=== PATIENT | male | born 1980 | race Asian ===

== ENCOUNTER 2016-08-17 19:04 | Emergency (ER) | payer MEDICARE, MEDICAID ==
--- NOTE | 2016-08-17 19:15 | ER Document Report ---
ED General - General Mode of Arrival: Ambulatory Information source: Patient TRAVEL OUTSIDE OF THE [place] IN LAST 30 DAYS: No - HPI Onset: Other - see narrative Onset/Duration: Persistent Quality of pain: No pain Associated symptoms: None <MARKELL MEHTA - Last Filed: 08/17/16 22:01> <LEAH OBRIEN - Last Filed: 08/17/16 23:59> - General Stated Complaint: POSSIBLE OVERDOSE Notes: Patient is a 35-year-old male that presents to the emergency department today with complaints of becoming unresponsive prior to arrival. Patient states he was coming down off of crystal methamphetamine so he took a few of his friends "[employer]" and his father found him "passed out" on the floor. Patient states he did not want to come to the ER but his father called EMS. Patient has an extensive documented history of drug abuse. (MARKELL MEHTA) - Related Data Allergies/Adverse Reactions: No Known Allergies Allergy (Verified 07/18/16 08:37) Past Medical History - General Information source: Patient - Social History Smoking Status: Current Every Day Smoker Cigarette use (# per day): Yes Drug Abuse: Heroin, Methamphetamine, Prescription drugs Family History: Reviewed & Not Pertinent GI Medical History: Reports: Hx Hepatitis - C Traumatic Medical History: Reports: Hx Spine Fracture - L-1996, RESULTANT SPASTIC PARAPLEGIA & URINARY RETENTION. Infectious Medical History: Reports: Hx Hepatitis - C Past Surgical History: Reports: Hx Orthopedic Surgery - femur fx, L1 back fx - Immunizations Hx Diphtheria, Pertussis, Tetanus Vaccination: No Hx Pneumococcal Vaccination: 09/01/13 <MARKELL MEHTA - Last Filed: 08/17/16 22:01> Review of Systems - Review of Systems Constitutional: See HPI, Other - took "xanny bars" and was becoming unresponsive EENT: No symptoms reported Cardiovascular: No symptoms reported Respiratory: No symptoms reported Gastrointestinal: No symptoms reported Genitourinary: No symptoms reported Male Genitourinary: No symptoms reported Musculoskeletal: No symptoms reported Skin: No symptoms reported Hematologic/Lymphatic: No symptoms reported Neurological/Psychological: No symptoms reported -: Yes All other systems reviewed and negative <MARKELL MEHTA - Last Filed: 08/17/16 22:01> Physical Exam - General General appearance: Other - drowsy In distress: None - HEENT Head: Normocephalic, Atraumatic Eyes: Normal Extraocular movements intact: Yes - Respiratory Respiratory status: No respiratory distress - Cardiovascular Rhythm: Regular Heart sounds: Normal auscultation Murmur: No - Abdominal Inspection: Normal Distension: No distension - Extremities General upper extremity: Normal inspection, Nontender, Normal ROM. No: Edema General lower extremity: Other - chronic lower extremity weakness - Neurological Cognition: Normal Speech: Other - slurred speech - Skin Skin Temperature: Warm Skin Moisture: Dry Skin Color: Normal <GREG MEHTAON - Last Filed: 08/17/16 22:01> Course - Laboratory Result Diagrams: 08/17/16 20:15 08/17/16 20:15 <TYSONMARKELL - Last Filed: 08/17/16 22:01> - Laboratory Result Diagrams: 08/17/16 20:15 08/17/16 20:15 - EKG Interpretation by Oh EKG shows normal: Sinus rhythm, Intervals, QRS Complexes, ST-T Waves. abnormal : [place] Rate: Tachycardia - 102 [place]/QRS: Left axis deviation When compared to previous EKG there are: No significant change <LEAH OBRIEN - Last Filed: 08/17/16 23:59> - Vital Signs Vital signs: Temp Pulse Resp BP Pulse Ox 97.9 F 99 18 108/62 100 08/17/16 19:10 08/17/16 19:10 08/17/16 19:10 08/17/16 19:10 08/17/16 19:10 (LEAH OBRIEN) - Laboratory Laboratory results interpreted by nc: 08/17/16 08/17/16 08/17/16 20:15 20:15 20:15 WBC 11.8 H RDW 17.3 H Creatine Kinase 186 H Total Protein 9.7 H Urine Protein 30 H Urine Ketones 80 H Urine Blood Urine Urobilinogen 2.0 H Ur Leukocyte Esterase MODERATE H 08/17/16 23:22 WBC RDW Creatine Kinase Total Protein Urine Protein Urine Ketones 80 H Urine Blood MODERATE H Urine Urobilinogen Ur Leukocyte Esterase SMALL H (LEAH OBRIEN) Discharge <MARKELL MEHTA - Last Filed: 08/17/16 22:01> <LEAH OBRIEN - Last Filed: 08/17/16 23:59> - Discharge Clinical Impression: Chronic drug abuse, Dehydration Benzodiazepine overdose Qualifiers: Encounter type: initial encounter Injury intent: undetermined intent Qualified Code(s): T42.4X4A - Poisoning by benzodiazepines, undetermined, initial encounter Condition: Stable Disposition: HOME, SELF-CARE Additional Instructions: Your urine has remained very concentrated suggesting the need to drink considerably more fluids than he had been. The urine analysis suggests he may have a urinary tract infection, so the urine will be cultured to determine if that is so. Drink plenty of fluids tonight and tomorrow. Stop using drugs. Follow-up with your doctor tomorrow if any problems. RETURN TO THE EMERGENCY ROOM IF ANY NEW OR WORSENING SYMPTOMS. Scribe Attestation: 08/17/16 23:55 I personally performed the services described in the documentation, reviewed and edited the documentation which was dictated to the scribe in my presence, and it accurately records my words and actions. (LEAH OBRIEN) Scribe Documentation - Scribe Written by Jenn:: Jenn Schultz, 2100 08/17/16 acting as scribe for :: Marta <MARKELL MEHTA - Last Filed: 08/17/16 22:01>
[2016-08-17 20:32] LABS: ABSOLUTE BASOPHILS # (AUTO) 0.1 10^3/uL (0.0-0.2); ABSOLUTE EOSINOPHILS # (AUTO) 0.1 10^3/uL (0.0-0.6); ABSOLUTE LYMPHOCYTES (AUTO) 2.4 10^3/uL (0.5-4.7); ABSOLUTE MONOCYTES (AUTO) 1.2 10^3/uL (0.1-1.4); BASOPHILS % (AUTO) 0.4 % (0-2); EOSINOPHILS % (AUTO) 0.5 % (0-6); HEMOGLOBIN 16.1 g/dL (13.5-17.0); HGB HCT DIFFERENCE -1.7; LYMPHOCYTES % (AUTO) 20.4 % (13-45); MEAN CORPUSCULAR HEMOGLOBIN 29.5 pg (27.0-33.4); MEAN CORPUSCULAR HGB CONC 32.2 g/dL (32.0-36.0); MEAN CORPUSCULAR VOLUME 92 fl (80-97); MONOCYTES % (AUTO) 10.6 % (3-13); RED BLOOD COUNT 5.46 10^6/uL (4.35-5.55); RED CELL DISTRIBUTION WIDTH 17.3 % (11.5-14.0); SEGMENTED NEUTROPHILS % (AUTO) 68.1 % (42-78); WHITE BLOOD COUNT 11.8 10^3/uL (4.0-10.5)
[2016-08-17 20:33] LABS: APPEARANCE,URINE SLIGHTLY-CLOUDY; BILIRUBIN,URINE NEGATIVE (NEGATIVE); GLUCOSE, URINE NEGATIVE (NEGATIVE); KETONES,URINE 80 mg/dL (NEGATIVE); LEUKOCYTE ESTERASE,URINE MODERATE (NEGATIVE); NITRITE,URINE NEGATIVE (NEGATIVE); PROTEIN,URINE 30 mg/dL (NEGATIVE); URINE SPECIFIC GRAVITY 1.031
[2016-08-17] MEDS ORDERED: NORMAL SALINE 1000 ML 1,000 ML IV ONE (20:42)
[2016-08-17 20:47] LABS: URINE BARBITURATES SCREEN NEGATIVE; URINE METHADONE SCREEN NEGATIVE; URINE PHENCYCLIDINE SCREEN NEGATIVE
[2016-08-17 20:51] LABS: ALANINE AMINOTRANSFERASE 21 U/L (21-72); ALKALINE PHOSPHATASE 99 U/L (38-126); ANION GAP 17 (5-19); ASPARTATE AMINO TRANSFERASE 40 U/L (17-59); BILIRUBIN,TOTAL 1.3 mg/dL (0.2-1.3); BLOOD UREA NITROGEN 15 mg/dL (7-20); CALCIUM 10.1 mg/dL (8.4-10.2); CARBON DIOXIDE 24 mmol/L (22-30); CHLORIDE 102 mmol/L (98-107); CREATINE KINASE 186 U/L (55-170); CREATININE RESULT 0.62 mg/dL (0.52-1.25); GLUCOSE 89 mg/dL (75-110); POTASSIUM 4.1 mmol/L (3.6-5.0); TOTAL PROTEIN 9.7 g/dL (6.3-8.2)
[2016-08-17 23:37] LABS: APPEARANCE,URINE SLIGHTLY-CLOUDY; BILIRUBIN,URINE NEGATIVE (NEGATIVE); GLUCOSE, URINE NEGATIVE (NEGATIVE); KETONES,URINE 80 mg/dL (NEGATIVE); LEUKOCYTE ESTERASE,URINE SMALL (NEGATIVE); NITRITE,URINE NEGATIVE (NEGATIVE); PROTEIN,URINE NEGATIVE (NEGATIVE); URINE SPECIFIC GRAVITY 1.029; UROBILINOGEN,URINE NEGATIVE mg/dL (<2.0)
--- NOTE | 2016-08-17 23:57 | EKG REPORT ---
SEVERITY:- OTHERWISE NORMAL ECG - SINUS TACHYCARDIA BORDERLINE LEFT AXIS DEVIATION : Confirmed by: Medardo Jewell 17-Aug-2016 23:56:32
[2016-08-18 00:17] VITALS: BP 107/80
== END 2016-08-18 00:17 | disposition home or self-care (01) ==
LOC: ER 19:04
DX: T42.4X4A Poisoning by benzodiazepines, undetermined, initial encounter (principal); F19.10 Other psychoactive substance abuse, uncomplicated; R53.1 Weakness; E86.0 Dehydration; F17.210 Nicotine dependence, cigarettes, uncomplicated; Z86.19 Personal history of other infectious and parasitic diseases
CPT/HCPCS: 93005; 99284; 96360; 36415; 87040; 87086; 82550; 85025; 87088; 80053; 81001; 84484; 87186; 80307; 71020; 93010; J7030

== ENCOUNTER 2017-06-08 11:23 | Inpatient (IN) | payer MEDICARE, MEDICAID ==
[2017-06-08] MEDS ORDERED: NORMAL SALINE 1000 ML 1,000 ML IV ONE ×4 (11:52→18:01)
--- NOTE | 2017-06-08 11:54 | ER Document Report ---
ED Medical Screen (RME) - General Chief Complaint: Skin Sore(s) Stated Complaint: SKIN SORE Time Seen by Provider: 06/08/17 11:51 Notes: Patient has a history of lumbar injury with some neurological impairment. Patient is able to ambulate with braces. However he states that due to multiple surgeries in the lumbar sacral area and prolonged sitting he is prone to decubitus ulcers. He states he has had several before. He states about a month ago he developed one on his right buttock and has been seeing wound clinic for it. They have been debriding it and treating it with cream but no antibiotics. He states several days ago he noticed that the area was red and tender and had a foul smell from it. He states he also began to feel weak lightheaded and nauseated consistent with when previous decubiti have been infected. He states he called wound clinic and they referred him here to the emergency department. TRAVEL OUTSIDE OF THE [place] IN LAST 30 DAYS: No - Related Data Allergies/Adverse Reactions: No Known Allergies Allergy (Verified 06/08/17 11:27) Past Medical History - Social History Frequency of alcohol use: None Drug Abuse: None Neurological Medical History: Denies: Hx Seizures GI Medical History: Reports: Hx Hepatitis - C Psychiatric Medical History: Denies: Hx Depression Traumatic Medical History: Reports: Hx Spine Fracture - L1996, RESULTANT SPASTIC PARAPLEGIA & URINARY RETENTION. Infectious Medical History: Reports: Hx Hepatitis - C Past Surgical History: Reports: Hx Orthopedic Surgery - femur fx, L1 back fx - Immunizations Hx Diphtheria, Pertussis, Tetanus Vaccination: No Physical Exam - Vital signs Vitals: Temp Pulse Resp BP Pulse Ox 98.5 F 128 H 20 147/93 H 99 06/08/17 11:27 06/08/17 11:27 06/08/17 11:27 06/08/17 11:27 06/08/17 11:27 Course - Vital Signs Vital signs: Temp Pulse Resp BP Pulse Ox 98.5 F 128 H 20 147/93 H 99 06/08/17 11:27 06/08/17 11:27 06/08/17 11:27 06/08/17 11:27 06/08/17 11:27
--- NOTE | 2017-06-08 13:31 | ER Document Report ---
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 He has been feeling ill for several days with myalgias, arthralgias, fever, and worsening drainage to a right buttocks pressure sore. He is not on any antibiotics. He was seen by the wound care clinic a week and a half ago. TRAVEL OUTSIDE OF THE [place] IN LAST 30 DAYS: No - Related Data Allergies/Adverse Reactions: No Known Allergies Allergy (Verified 06/08/17 11:27) Past Medical History - General Information source: Patient - Social History Smoking Status: Current Some Day Smoker Frequency of alcohol use: None Drug Abuse: None Occupation: Unemployed Lives with: Family Family History: Reviewed & Not Pertinent - Medical History Medical History: Negative Neurological Medical History: Denies: Hx Seizures GI Medical History: Reports: Hx Hepatitis - C Psychiatric Medical History: Denies: Hx Depression Traumatic Medical History: Reports: Hx Spine Fracture - L-1996, RESULTANT SPASTIC PARAPLEGIA & URINARY RETENTION. Infectious Medical History: Reports: Hx Hepatitis - C Past Surgical History: Reports: Hx Orthopedic Surgery - femur fx, L1 back fx - Immunizations Hx Diphtheria, Pertussis, Tetanus Vaccination: No Hx Pneumococcal Vaccination: 09/01/13 Review of Systems - Review of Systems Constitutional: See HPI EENT: No symptoms reported Cardiovascular: No symptoms reported Respiratory: No symptoms reported Gastrointestinal: No symptoms reported Genitourinary: No symptoms reported Male Genitourinary: No symptoms reported Musculoskeletal: See HPI Skin: See HPI Hematologic/Lymphatic: No symptoms reported Neurological/Psychological: No symptoms reported Physical Exam - Vital signs Vitals: Temp Pulse Resp BP Pulse Ox 98.5 F 128 H 20 147/93 H 99 06/08/17 11:27 06/08/17 11:27 06/08/17 11:27 06/08/17 11:27 06/08/17 11:27 Interpretation: Tachycardic - in pivot, apical pulse 88 at this time - General General appearance: Appears well, Alert In distress: None - HEENT Head: Normocephalic, Atraumatic Eyes: Normal Conjunctiva: Normal Pupils: PERRL Mucous membranes: Dry Pharynx: Normal Neck: Supple. No: Lymphadenopathy - Respiratory Respiratory status: No respiratory distress Chest status: Nontender Breath sounds: Normal Chest palpation: Normal - Cardiovascular Rhythm: Regular Heart sounds: Normal auscultation Murmur: No - Abdominal Inspection: Normal Distension: No distension Bowel sounds: Normal Tenderness: Nontender Organomegaly: No organomegaly - Back Back: Normal, Nontender - Extremities General upper extremity: Normal inspection, Nontender, Normal color, Normal ROM , Normal temperature General lower extremity: Normal inspection, Nontender, Normal color, Normal ROM , Normal temperature, Normal weight bearing. No: Josefina's sign - Neurological Neuro grossly intact: Yes Cognition: Normal Orientation: AAOx4 [place] Coma Scale Eye Opening: Spontaneous [place] Coma Scale Verbal: Oriented [place] Coma Scale Motor: Obeys Commands [place] Coma Scale Total: 15 Speech: Normal Motor strength normal: LUE, RUE, LLE, RLE Sensory: Normal - Psychological Associated symptoms: Normal affect, Normal mood - Skin Skin Temperature: Warm Skin Moisture: Dry Skin Color: [place], Other - pressure sore right mid buttocks, wtih necrotic tissue that needs to be debrided, about 1-2 cm (mushy) Course - Re-evaluation Re-evalutation: 06/08/17 15:00 dr hammer wll see the pt. 06/08/17 16:00 dr hammer debrided pressure sore at the bedside, packed with iodoform gauze. asked to give 1 gram rocephin IV now too. consult dr. rodriguez about whether he can go home, he is OK after seeing the pt and put on levaquin. Urine negative. 06/08/17 17:12 To check on the patient he was on his right side with his left arm above the heart in which the blood pressures being taken systolic was 87 I had him lay on his back with the left arm even with the heart and the blood pressure was 95 systolic similar to the right arm 95 systolic. I am ordering another liter of fluid and he still has 1 g Rocephin to go he feels fine. 06/08/17 18:03 cath urine done by pt and it is still dark, ordered 4th liter NS 06/08/17 18:15 Patient's pulse is 94 his urine is dark he just felt To himself I have ordered another liter of fluid and called for him to be admitted, dr. urbina hospitalist 06/08/17 18:26 - Vital Signs Vital signs: Temp Pulse Resp BP Pulse Ox 98.5 F 128 H 17 96/61 L 100 06/08/17 17:15 06/08/17 11:27 06/08/17 17:11 06/08/17 17:11 06/08/17 17:11 - Laboratory Result Diagrams: 06/08/17 13:45 06/08/17 13:45 Laboratory results interpreted by me: 06/08/17 06/08/17 06/08/17 13:45 13:45 13:45 WBC 21.9 H RBC 3.81 L Hgb 11.9 L Hct 34.8 L RDW 15.1 H Seg Neuts % (Manual) 91 H Band Neutrophils % 1 L Lymphocytes % (Manual) 2 L Abs Neuts (Manual) 20.1 H Abs Lymphs (Manual) 0.4 L VBG pH 7.47 H Potassium 3.3 L Glucose 121 H Direct Bilirubin 0.6 H Alkaline Phosphatase 175 H Urine Protein Urine Ketones Urine Bilirubin Urine Urobilinogen Ur Leukocyte Esterase 06/08/17 14:54 WBC RBC Hgb Hct RDW Seg Neuts % (Manual) Band Neutrophils % Lymphocytes % (Manual) Abs Neuts (Manual) Abs Lymphs (Manual) VBG pH Potassium Glucose Direct Bilirubin Alkaline Phosphatase Urine Protein 100 H Urine Ketones 80 H Urine Bilirubin SMALL H Urine Urobilinogen 4.0 H Ur Leukocyte Esterase SMALL H Discharge - Discharge Clinical Impression: right buttocks pressure sore, Infection, leukocytosis, sepsis Condition: Good Disposition: ADMITTED INPATIENT Admitting Provider: Hospitalist Unit Admitted: IMCU Instructions: Levofloxacin, Rocephin ([facility]), Wound Infection ([facility]) Additional Instructions: go to your wound clinic appointment tomorrow lay on your sides and avoid presure on central buttocks to er for fever, chills, feeling worse tonight. Please complete the patient satisfaction survey if you get one, and return it.. If you do not receive a survey, then you can go to the [facility] website, [email or web address] and place your comments about your very good care. Thank you very much. It was a pleasure being your medical provider today. Prescriptions: Levofloxacin 750 mg PO DAILY #7 tablet Referrals: JOCELIN DAON MD [Primary Care Provider] - Follow up as needed
[2017-06-08 14:00] LABS: HEMATOCRIT 34.8 % (37.9-51.0); HEMOGLOBIN 11.9 g/dL (13.5-17.0); HGB HCT DIFFERENCE 0.9; MEAN CORPUSCULAR HEMOGLOBIN 31.1 pg (27.0-33.4); MEAN CORPUSCULAR HGB CONC 34.1 g/dL (32.0-36.0); MEAN CORPUSCULAR VOLUME 91 fl (80-97); RED BLOOD COUNT 3.81 10^6/uL (4.35-5.55); RED CELL DISTRIBUTION WIDTH 15.1 % (11.5-14.0); WHITE BLOOD COUNT 21.9 10^3/uL (4.0-10.5)
[2017-06-08 14:08] LABS: VENOUS BLOOD BASE EXCESS 2.9 mmol/L; VENOUS BLOOD HCO3 26.6 mmol/L (20-32); VENOUS BLOOD PCO2 37.7 mmHg (35-63); VENOUS BLOOD PH 7.47 (7.30-7.42)
[2017-06-08 14:29] LABS: ANISOCYTOSIS SLIGHT; BAND NEUTROPHILS % (MANUAL) 1 % (3-5); BASOPHILS % (MANUAL) 0 % (0-2); EOSINOPHILS % (MANUAL) 0 % (0-6); LYMPHOCYTES % (MANUAL) 2 % (13-45); TOTAL CELLS COUNTED 100; TOXIC GRANULATION SLIGHT; TOXIC VACUOLATION PRESENT
[2017-06-08 14:37] LABS: ALANINE AMINOTRANSFERASE 53 U/L (21-72); ALBUMIN 3.5 g/dL (3.5-5.0); ALKALINE PHOSPHATASE 175 U/L (38-126); ANION GAP 13 (5-19); ASPARTATE AMINO TRANSFERASE 41 U/L (17-59); BILIRUBIN,DIRECT 0.6 mg/dL (0.0-0.4); BILIRUBIN,TOTAL 0.8 mg/dL (0.2-1.3); BLOOD UREA NITROGEN 10 mg/dL (7-20); CALCIUM 8.7 mg/dL (8.4-10.2); CARBON DIOXIDE 26 mmol/L (22-30); CHLORIDE 102 mmol/L (98-107); CREATININE RESULT 0.64 mg/dL (0.52-1.25); GLUCOSE 121 mg/dL (75-110); POTASSIUM 3.3 mmol/L (3.6-5.0); SODIUM 140.7 mmol/L (137-145); TOTAL PROTEIN 7.6 g/dL (6.3-8.2)
[2017-06-08] MEDS ORDERED: LEVOFLOXACIN 750 MG/D5W RTU 750 MG/150 ML RTUPB IV SCH (15:00)
[2017-06-08] MEDS ORDERED: POTASSIUM CHLORIDE 20 MEQ/15 ML UDCUP PO ONE (15:38)
[2017-06-08] MEDS ORDERED: CEFTRIAXONE 1 GM/D5W RTU 1 GM/50 ML RTUPB IV ONE (15:43)
[2017-06-08] MEDS ORDERED: ACETAMINOPHEN 325 MG TABLET PO ONE ×2 (15:57→21:30)
[2017-06-08 16:25] LABS: AMORPHOUS SEDIMENT,URINE TRACE /HPF; APPEARANCE,URINE CLOUDY; BILIRUBIN,URINE SMALL (NEGATIVE); GLUCOSE, URINE NEGATIVE (NEGATIVE); KETONES,URINE 80 mg/dL (NEGATIVE); LEUKOCYTE ESTERASE,URINE SMALL (NEGATIVE); NITRITE,URINE NEGATIVE (NEGATIVE); PROTEIN,URINE 100 mg/dL (NEGATIVE); URINE SPECIFIC GRAVITY 1.032
--- NOTE | 2017-06-08 16:33 | OPERATIVE REPORT E ---
Operative Report NAME: MEKHI DEUTSCH : 1980 AGE: 36Y DATE OF SURGERY: 06/08/2017 ROOM: PREOPERATIVE DIAGNOSIS: Abscess of the right gluteal area. POSTOPERATIVE DIAGNOSIS: Abscess of the right gluteal area. PROCEDURE: Incision and drainage and debridement of necrotic tissue along the right gluteal area measuring about 2 x 2 cm necrotic tissue and about 1.5 cm deep. Patient initially had a culture of a drainage done by the ER nurse. SURGEON: GRACE BALDWIN M.D. ANESTHESIA: Local. INDICATIONS: Patient is paraplegic and uses crutches with his arms when he walks but most of the time stays in the wheelchair. Patient has been having fever and chills for the past few days and has an appointment with [facility] tomorrow. However, patient advised to come to the emergency room by the [facility] today. DESCRIPTION OF PROCEDURE: After patient was placed in left lateral decubitus position with the right side up, the decubitus ulcer was subsequently prepped and draped in the usual sterile fashion. Local anesthesia infiltrated around the decubitus site. Patient already has some poor sensation as a result of an accident with vertebral injury. With use of 11 blade, the necrotic tissue was incised circumferentially. Necrotic tissue was then further debrided in toto down to the subcutaneous area. There was a small amount of purulent material that extruded out. With use of finger palpation, the abscess cavity roughly measured about 1.5 cm deep with no evidence of tunneling noted. Further necrotic tissue was then sharply debrided with use of the scalpel. Most of the necrotic tissue was removed and no other purulent material noted. The area was subsequently packed with 0.25 inch Iodoform gauze. There was a little bleeding of the periphery that was controlled with pressure. A sterile 4 x 4 was used on top of the Iodoform gauze and paper tape placed over the 4 x 4. Patient tolerated the procedure well. Patient had a white count of 22,000. Patient initially had a dose of Levaquin and will also get another dose of Rocephin 1 g IV. His appointment at the [facility] tomorrow is at 11 a.m. DICTATING PHYSICIAN: GRAEC BALDWIN M.D. [id number] PHY#: [id number] ID: [id number] JOB#: [id number] ACCT: [id number] cc:GRACE BALDWIN M.D. >
[2017-06-08] MEDS ORDERED: VANCOMYCIN HCL INJ 1000 MG VIAL IV ONE (18:14)
[2017-06-08] MEDS ORDERED: ONDANSETRON 4 MG TAB.RAPDIS PO PRN (18:40)
--- NOTE | 2017-06-08 19:17 | PDOC H&P ---
History of Present Illness Admission Date/PCP: 06/08/17 18:38 JOCELIN DOAN, Patient complains of: fevers and chills History of Present Illness: MEKHI DEUTSCH is a 36 year old male with history of paraplegia since age 15 who presents to the ED after experiencing 3 day history of subjective fevers, weakness, and chills. He has a 1.5 month history of sacral decubitus. States that this past Wednesday he began feeling feverish, had chills, and less energy level. Also felt to be increasingly stuffy. Denies lightheadness, dizziness, CP , SOB, cough, vomiting. He notes mild nausea. PO intake has been good. Notes that his mother may have had URI like symptoms at home this past weekend. In ED today had sacral decub debrided and was cleaned and packed. Was feeling well but noted to have systolic blood pressures in 90s, baseline around 120s. Received 4 liters of IVF however pressures were still lower than normal. Patient was sarkar-cultured and received IV Levaquin. Upon discussion with ED, he was also given 1X dose of Vancomycin. patient will be admitted as observation. Past Medical History Medical History: Other - History of paraplegia since age 15. Cardiac Medical History: Reports: None Pulmonary Medical History: Reports: None Neurological Medical History: Reports: None Denies: Seizures Endocrine Medical History: Reports: None Renal/ Medical History: Reports: None GI Medical History: Reports: Hepatitis - C Musculoskeltal Medical History: Reports: None Psychiatric Medical History: Denies: Depression Infectious History Note: Has history of multiple infections due to chronic ulcers. Past Surgical History Past Surgical History: Reviewed with patient. Past Surgical History: Reports: Orthopedic Surgery - femur fx, L1 back fx Social History Lives with: Family Smoking Status: Current Some Day Smoker Frequency of Alcohol Use: None Hx Recreational Drug Use: No Hx Prescription Drug Abuse: Yes Family History Family History: Reviewed & Not Pertinent Parental Family History Reviewed: No Children Family History Reviewed: NA Sibling(s) Family History Reviewed.: No Medication/Allergy Home Medications: Buprenorphine HCl/Naloxone HCl [Suboxone 8 mg-2 mg Sl Film] 2 film SL DAILY Allergies/Adverse Reactions: No Known Allergies Allergy (Verified 06/08/17 11:27) Review of Systems Constitutional: PRESENT: chills, fever(s) - subjective fevers. ABSENT: headache (s), weight gain, weight loss Eyes: ABSENT: visual disturbances Ears: ABSENT: hearing changes Cardiovascular: ABSENT: chest pain, dyspnea on exertion, edema, orthropnea, palpitations Respiratory: ABSENT: cough, hemoptysis Gastrointestinal: PRESENT: nausea. ABSENT: abdominal pain, constipation, diarrhea, hematemesis, hematochezia, vomiting Genitourinary: ABSENT: dysuria, hematuria Musculoskeletal: ABSENT: joint swelling Integumentary: ABSENT: rash, wounds Neurological: ABSENT: abnormal gait, abnormal speech, confusion, dizziness, focal weakness, syncope Psychiatric: ABSENT: anxiety, depression, homidical ideation, suicidal ideation Endocrine: ABSENT: cold intolerance, heat intolerance, polydipsia, polyuria Hematologic/Lymphatic: ABSENT: easy bleeding, easy bruising Physical Exam Vital Signs: Temp Pulse Resp BP Pulse Ox 98.5 F 128 H 17 96/61 L 100 06/08/17 17:15 06/08/17 11:27 06/08/17 17:11 06/08/17 17:11 06/08/17 17:11 General appearance: PRESENT: no acute distress, well-developed, well-nourished Head exam: PRESENT: atraumatic, normocephalic Eye exam: PRESENT: conjunctiva pink, EOMI, PERRLA. ABSENT: scleral icterus Ear exam: PRESENT: normal external ear exam Mouth exam: PRESENT: moist, tongue midline Neck exam: ABSENT: carotid bruit, JVD, lymphadenopathy, thyromegaly Respiratory exam: PRESENT: clear to auscultation cee. ABSENT: rales, rhonchi, wheezes Cardiovascular exam: PRESENT: RRR. ABSENT: diastolic murmur, rubs, systolic murmur Pulses: PRESENT: normal dorsalis pedis pul Vascular exam: PRESENT: normal capillary refill GI/Abdominal exam: PRESENT: normal bowel sounds, soft. ABSENT: distended, guarding, mass, organolmegaly, rebound, tenderness Rectal exam: PRESENT: deferred Extremities exam: PRESENT: other - history of paraplegia. ABSENT: calf tenderness, clubbing, pedal edema Neurological exam: PRESENT: alert, awake, oriented to person, oriented to place , oriented to time, oriented to situation, CN II-XII grossly intact. ABSENT: motor sensory deficit Psychiatric exam: PRESENT: appropriate affect, normal mood. ABSENT: homicidal ideation, suicidal ideation Skin exam: PRESENT: dry, intact, warm. ABSENT: cyanosis, rash Results Laboratory Results: ED labs reviewed notable for WBC 22K with left shift. Lactate 1.0 Assessment & Plan - Diagnosis (1) Ulcer Is this a current diagnosis for this admission?: Yes Plan: Sacral decubitis ulcer, debrided today in ED. Likely source of systemic symptoms. Plan - Consult wound care for daily dressing changes - Received IV vancoymcin + levaquin. Also received IV ceftriaxone * 1 dose - Will monitor hemodynamics - Follow up blood cultures (2) Hypotension Plan: Likely secondary to transient bacteremia. Has received IV bolus * 4 in ED Plan - Will continue IV NS 100cc/hr (3) Paraplegia Is this a current diagnosis for this admission?: Yes Plan: Chronic issues, CTM (4) Infection Plan: IV antibiotics per above.
[2017-06-08] MEDS ORDERED: ENOXAPARIN SODIUM INJ 40 MG/0.4 ML DISP.SYRIN SUBCUT ONE (20:00)
[2017-06-08] MEDS: 1/2 NORMAL SALINE 1,000 ML IV SCH (21:39)
[2017-06-09] MEDS: ACETAMINOPHEN 325 MG TABLET PO PRN ×3 (05:02→13:01)
[2017-06-09 06:37] LABS: HEMOGLOBIN 11.3 g/dL (13.5-17.0); HGB HCT DIFFERENCE -0.1; MEAN CORPUSCULAR HGB CONC 33.2 g/dL (32.0-36.0); MEAN CORPUSCULAR VOLUME 93 fl (80-97); RED BLOOD COUNT 3.63 10^6/uL (4.35-5.55); RED CELL DISTRIBUTION WIDTH 15.2 % (11.5-14.0); WHITE BLOOD COUNT 19.7 10^3/uL (4.0-10.5)
[2017-06-09 06:54] LABS: ANION GAP 13 (5-19); BLOOD UREA NITROGEN 6 mg/dL (7-20); CARBON DIOXIDE 18 mmol/L (22-30); CHLORIDE 110 mmol/L (98-107); CREATININE RESULT 0.52 mg/dL (0.52-1.25); GLUCOSE 135 mg/dL (75-110); POTASSIUM 3.6 mmol/L (3.6-5.0); SODIUM 141.2 mmol/L (137-145)
[2017-06-09] MEDS: 1/2 NORMAL SALINE 1,000 ML IV SCH (08:39)
[2017-06-09] MEDS ORDERED: NALOXONE HCL SL SCH (10:00)
[2017-06-09] MEDS ORDERED: BUPRENORPHINE HCL SL SCH (10:00)
[2017-06-09] MEDS ORDERED: [UNRECOGNIZED DRUG - OTHER] SL SCH (10:00)
[2017-06-09] MEDS: ENOXAPARIN SODIUM INJ 40 MG/0.4 ML DISP.SYRIN SUBCUT SCH (10:46)
--- NOTE | 2017-06-09 12:52 | PDOC PROGRESS REPORT ---
Subjective Progress Note for:: 06/09/17 Subjective:: Pt states that he has been having fever and chills for the last few days. Pt states that he currently feels much better. Physical Exam Vital Signs: Temp Pulse Resp BP Pulse Ox 98.5 F 95 16 91/62 L 96 06/09/17 07:23 06/09/17 07:23 06/09/17 07:23 06/09/17 07:23 06/09/17 07:23 Intake & Output 06/08/17 06/09/17 06/10/17 06:59 06:59 06:59 Intake Total 900 Output Total 250 Balance 650 Weight 83.7 kg General appearance: PRESENT: no acute distress, well-developed, well-nourished Head exam: PRESENT: atraumatic, normocephalic Eye exam: PRESENT: conjunctiva pink, EOMI, PERRLA. ABSENT: scleral icterus Ear exam: PRESENT: normal external ear exam Mouth exam: PRESENT: moist, tongue midline Neck exam: ABSENT: carotid bruit, JVD, lymphadenopathy, thyromegaly Respiratory exam: PRESENT: clear to auscultation cee. ABSENT: rales, rhonchi, wheezes Cardiovascular exam: PRESENT: RRR. ABSENT: diastolic murmur, rubs, systolic murmur Pulses: PRESENT: normal dorsalis pedis pul Vascular exam: PRESENT: normal capillary refill GI/Abdominal exam: PRESENT: normal bowel sounds, soft. ABSENT: distended, guarding, mass, organolmegaly, rebound, tenderness Rectal exam: PRESENT: deferred Extremities exam: PRESENT: other - + muscle wasting Neurological exam: PRESENT: alert, awake, oriented to person, oriented to place , oriented to time, oriented to situation, CN II-XII grossly intact. ABSENT: motor sensory deficit Psychiatric exam: PRESENT: appropriate affect, normal mood. ABSENT: homicidal ideation, suicidal ideation Skin exam: PRESENT: dry, intact, warm. ABSENT: cyanosis, rash Results Laboratory Results: 06/09/17 06:17 06/09/17 06:17 06/09/17 06/09/17 06:17 06:17 WBC 19.7 H RBC 3.63 L Hgb 11.3 L Hct 34.0 L MCV 93 MCH 31.0 MCHC 33.2 RDW 15.2 H Plt Count 240 Sodium 141.2 Potassium 3.6 Chloride 110 H Carbon Dioxide 18 L Anion Gap 13 BUN 6 L Creatinine 0.52 Est GFR ( Amer) > 60 Est GFR (Non-Af Amer) > 60 Glucose 135 H Calcium 8.0 L Assessment & Plan - Diagnosis (1) Sepsis Is this a current diagnosis for this admission?: Yes Plan: Secondary to Sacral Pressure Ulcer: Will discontinue Levaquin. Will place pt on Ceftazidime. Awaiting results of Wound culture. (2) Sacral wound Is this a current diagnosis for this admission?: Yes Plan: Sacral Pressure Ulcer S/P Debridement: Will continue Ceftazidime. (3) Hypotension Is this a current diagnosis for this admission?: Yes Plan: Secondary to Sepsis: Will continue IVF. Pt asymptomatic. Will continue to monitor. (4) Paraplegia Is this a current diagnosis for this admission?: No Plan: Supportive care. (5) Hypokalemia Is this a current diagnosis for this admission?: Yes Plan: Pt was placed on IVF. Resolved. Will monitor. (6) Metabolic acidosis Is this a current diagnosis for this admission?: Yes Plan: in setting of Sepsis: Will continue to monitor. Will continue IVFs. (7) Abnormal urine finding Is this a current diagnosis for this admission?: Yes Plan: colonies less than 100,000. Pharmacy verified that pt did not have blood cultures prior to antibiotics. Pt does in and out self caths. Will monitor. (8) DVT prophylaxis Is this a current diagnosis for this admission?: Yes Plan: lovenox. - Time Time Spent with patient: 15-24 minutes
[2017-06-09] MEDS ORDERED: LEVOFLOXACIN 750 MG/D5W RTU 750 MG/150 ML RTUPB IV ONE (13:00)
[2017-06-09] MEDS: CEFTAZIDIME PENTAHYDRATE 1 GM in DEXTROSE 5%-WATER 50 ML IV SCH ×2 (13:55→21:10)
[2017-06-09] MEDS: NORMAL SALINE 1000 ML 1,000 ML IV PRN (15:49)
[2017-06-09] MEDS ORDERED: ACETAMINOPHEN 325 MG TABLET PO ONE (16:45)
[2017-06-09] MEDS: COLLAGENASE CLOSTRIDIUM HIST. OINT 30 GM TOP SCH (17:40)
[2017-06-10] MEDS: ACETAMINOPHEN 325 MG TABLET PO PRN ×3 (00:25→18:24)
--- NOTE | 2017-06-10 01:24 | PDOC PROGRESS REPORT ---
Subjective Progress Note for:: 06/09/17 Subjective:: Minimal pains from right hip decubitus ulcer post debridement. Physical Exam Vital Signs: Temp Pulse Resp BP Pulse Ox 101.6 F H 108 H 20 128/70 H 96 06/10/17 00:25 06/10/17 00:25 06/10/17 00:25 06/10/17 00:25 06/10/17 00:25 Intake & Output 06/08/17 06/09/17 06/10/17 06:59 06:59 06:59 Intake Total 1942 Output Total 1150 Balance 792 Exam: Packing removed. Has small amount necrotic tissue. Assessment & Plan - Time Time Spent with patient: 15-24 minutes - Plan Summary Plan Summary: Has g(-) rods on Blood c/s,urine c/s and wound c/s.Await final C/S report but agree with Cefepime. Start Xantyl dressings to decube ulcer for further chemical debridement. Patient should eventually be followed up at the wound care center. Will likely need a wound VAC to heal the ulcer.
[2017-06-10] MEDS: CEFTAZIDIME PENTAHYDRATE 1 GM in DEXTROSE 5%-WATER 50 ML IV SCH ×3 (05:53→23:00)
[2017-06-10] MEDS: NORMAL SALINE 1000 ML 1,000 ML IV PRN (05:56)
[2017-06-10] MEDS ORDERED: ONDANSETRON 4 MG TAB.RAPDIS PO PRN (07:30)
--- NOTE | 2017-06-10 08:53 | PDOC PROGRESS REPORT ---
Subjective Progress Note for:: 06/10/17 Subjective:: Pt states that he is tired. Pt states that he had a fever this morning. Physical Exam Vital Signs: Temp Pulse Resp BP Pulse Ox 100.3 F 113 H 19 102/49 L 97 06/10/17 07:38 06/10/17 07:38 06/10/17 07:38 06/10/17 07:38 06/10/17 07:38 Intake & Output 06/09/17 06/10/17 06/11/17 06:59 06:59 06:59 Intake Total 3019 Output Total 1950 Balance 1069 Weight 80.8 kg General appearance: PRESENT: no acute distress, well-developed, well-nourished Head exam: PRESENT: atraumatic, normocephalic Eye exam: PRESENT: conjunctiva pink, EOMI, PERRLA. ABSENT: scleral icterus Ear exam: PRESENT: normal external ear exam Mouth exam: PRESENT: moist, tongue midline Neck exam: ABSENT: carotid bruit, JVD, lymphadenopathy, thyromegaly Respiratory exam: PRESENT: clear to auscultation cee. ABSENT: rales, rhonchi, wheezes Cardiovascular exam: PRESENT: RRR. ABSENT: diastolic murmur, rubs, systolic murmur Pulses: PRESENT: normal dorsalis pedis pul Vascular exam: PRESENT: normal capillary refill GI/Abdominal exam: PRESENT: normal bowel sounds, soft. ABSENT: distended, guarding, mass, organolmegaly, rebound, tenderness Rectal exam: PRESENT: deferred Extremities exam: PRESENT: other - + muscle wasting Musculoskeletal exam: PRESENT: other - + muscle wasting. Neurological exam: PRESENT: alert, awake, oriented to person, oriented to place , oriented to time, oriented to situation, CN II-XII grossly intact. ABSENT: motor sensory deficit Psychiatric exam: PRESENT: appropriate affect, normal mood. ABSENT: homicidal ideation, suicidal ideation Assessment & Plan - Diagnosis (1) Sepsis Is this a current diagnosis for this admission?: Yes Plan: Secondary to Sacral Pressure Ulcer: Ceftazidime. Blood Culture demonstrating Gram Neg Rods. Will repeat blood culture. Wound culture demonstrated E. coli, and Gram Positive organisms. (2) Sacral wound Is this a current diagnosis for this admission?: Yes Plan: Sacral Pressure Ulcer S/P Debridement: Will continue Ceftazidime. (3) Hypotension Is this a current diagnosis for this admission?: Yes Plan: Secondary to Sepsis: Will continue IVF. Pt asymptomatic. Will continue to monitor. (4) Paraplegia Is this a current diagnosis for this admission?: No Plan: Supportive care. (5) Hypokalemia Is this a current diagnosis for this admission?: Yes Plan: Pt was placed on IVF. Resolved. Will monitor. Will check BMP in am (6) Metabolic acidosis Is this a current diagnosis for this admission?: Yes Plan: in setting of Sepsis: Will continue to monitor. Will continue IVFs. BMP in am (7) Abnormal urine finding Is this a current diagnosis for this admission?: Yes Plan: E. coli colonies less than 100,000. Pharmacy verified that pt did not have blood cultures prior to antibiotics. Pt does in and out self caths. Will monitor. (8) DVT prophylaxis Is this a current diagnosis for this admission?: Yes Plan: lovenox.
[2017-06-10] MEDS: ENOXAPARIN SODIUM INJ 40 MG/0.4 ML DISP.SYRIN SUBCUT SCH (09:08)
[2017-06-10] MEDS: COLLAGENASE CLOSTRIDIUM HIST. OINT 30 GM TOP SCH ×2 (10:00→23:00)
[2017-06-10] MEDS ORDERED: MAGNESIUM CITRATE 296 ML BOTTLE PO ONE (16:45)
[2017-06-10] MEDS ORDERED: GLYCERIN (ADULT) SUPP.RECT PR ONE (16:46)
[2017-06-11] MEDS: ACETAMINOPHEN 325 MG TABLET PO PRN ×4 (02:49→21:12)
[2017-06-11 06:23] LABS: HEMATOCRIT 31.5 % (37.9-51.0); HEMOGLOBIN 10.8 g/dL (13.5-17.0); HGB HCT DIFFERENCE 0.9; MEAN CORPUSCULAR HEMOGLOBIN 31.2 pg (27.0-33.4); MEAN CORPUSCULAR HGB CONC 34.4 g/dL (32.0-36.0); MEAN CORPUSCULAR VOLUME 91 fl (80-97); RED BLOOD COUNT 3.47 10^6/uL (4.35-5.55); RED CELL DISTRIBUTION WIDTH 15.1 % (11.5-14.0); WHITE BLOOD COUNT 22.1 10^3/uL (4.0-10.5)
[2017-06-11] MEDS: CEFTAZIDIME PENTAHYDRATE 1 GM in DEXTROSE 5%-WATER 50 ML IV SCH ×3 (06:26→23:39)
[2017-06-11 06:47] LABS: BAND NEUTROPHILS % (MANUAL) 3 % (3-5); BASOPHILS % (MANUAL) 0 % (0-2); EOSINOPHILS % (MANUAL) 0 % (0-6); LYMPHOCYTES % (MANUAL) 18 % (13-45); TOTAL CELLS COUNTED 100
[2017-06-11 06:48] LABS: ANION GAP 11 (5-19); BLOOD UREA NITROGEN 5 mg/dL (7-20); CALCIUM 8.1 mg/dL (8.4-10.2); CARBON DIOXIDE 24 mmol/L (22-30); CHLORIDE 106 mmol/L (98-107); GLUCOSE 92 mg/dL (75-110); MAGNESIUM 1.8 mg/dL (1.6-2.3); SODIUM 141.4 mmol/L (137-145)
[2017-06-11 06:50] LABS: TOXIC GRANULATION SLIGHT; TOXIC VACUOLATION PRESENT
[2017-06-11 06:51] LABS: ANISOCYTOSIS SLIGHT; POIKILOCYTOSIS SLIGHT; TARGET CELLS SLIGHT
[2017-06-11 06:52] LABS: POTASSIUM 2.9 mmol/L (3.6-5.0)
[2017-06-11] MEDS ORDERED: VANCOMYCIN HCL 0 MG in DEXTROSE 5%-WATER 250 ML IV NR (08:00)
[2017-06-11] MEDS ORDERED: POTASSIUM CHLORIDE 10 MEQ TABLET.SA PO ONE (09:00)
[2017-06-11] MEDS: POTASSI CL 20 MEQ/50 ML RIDER 20 MEQ/50 ML RTUPB IV SCH ×2 (09:12→12:30)
[2017-06-11] MEDS ORDERED: VANCOMYCIN HCL 1,500 MG in DEXTROSE 5%-WATER 250 ML IV ONE (10:00)
[2017-06-11] MEDS: COLLAGENASE CLOSTRIDIUM HIST. OINT 30 GM TOP SCH ×2 (10:38→21:14)
[2017-06-11] MEDS: ENOXAPARIN SODIUM INJ 40 MG/0.4 ML DISP.SYRIN SUBCUT SCH (10:38)
--- NOTE | 2017-06-11 13:34 | PDOC PROGRESS REPORT ---
Subjective Progress Note for:: 06/11/17 Subjective:: Pt states that he is doing better today. Pt states that he is sweating a little bit at night. Pt states that he is aware that he will not be leaving today. Physical Exam Vital Signs: Temp Pulse Resp BP Pulse Ox 98.9 F 100 16 125/72 95 06/11/17 08:52 06/11/17 08:52 06/11/17 08:52 06/11/17 08:52 06/11/17 08:52 Intake & Output 06/10/17 06/11/17 06/12/17 06:59 06:59 06:59 Intake Total 3019 3024 Output Total 1950 1251 Balance 1069 1773 Weight 80.8 kg 80.9 kg General appearance: PRESENT: no acute distress, well-developed, well-nourished Head exam: PRESENT: atraumatic, normocephalic Eye exam: PRESENT: conjunctiva pink, EOMI, PERRLA. ABSENT: scleral icterus Ear exam: PRESENT: normal external ear exam Mouth exam: PRESENT: moist, tongue midline Neck exam: ABSENT: carotid bruit, JVD, lymphadenopathy, thyromegaly Respiratory exam: PRESENT: clear to auscultation cee. ABSENT: rales, rhonchi, wheezes Cardiovascular exam: PRESENT: RRR. ABSENT: diastolic murmur, rubs, systolic murmur Pulses: PRESENT: normal dorsalis pedis pul Vascular exam: PRESENT: normal capillary refill GI/Abdominal exam: PRESENT: normal bowel sounds, soft. ABSENT: distended, guarding, mass, organolmegaly, rebound, tenderness Rectal exam: PRESENT: deferred Extremities exam: PRESENT: other - Pt paralyzed from the waist down. Neurological exam: PRESENT: alert, altered, awake, oriented to person, oriented to place, oriented to time, oriented to situation Psychiatric exam: PRESENT: appropriate affect, normal mood. ABSENT: homicidal ideation, suicidal ideation Results Laboratory Results: 06/11/17 06:02 06/11/17 06:02 06/11/17 06/11/17 06:02 06:02 WBC 22.1 H RBC 3.47 L Hgb 10.8 L Hct 31.5 L MCV 91 MCH 31.2 MCHC 34.4 RDW 15.1 H Plt Count 314 Seg Neutrophils % Not Reportable Lymphocytes % Not Reportable Monocytes % Not Reportable Eosinophils % Not Reportable Basophils % Not Reportable Absolute Neutrophils Not Reportable Absolute Lymphocytes Not Reportable Absolute Monocytes Not Reportable Absolute Eosinophils Not Reportable Absolute Basophils Not Reportable Sodium 141.4 Potassium 2.9 L* Chloride 106 Carbon Dioxide 24 Anion Gap 11 BUN 5 L Creatinine 0.50 L Est GFR ( Amer) > 60 Est GFR (Non-Af Amer) > 60 Glucose 92 Calcium 8.1 L Magnesium 1.8 Assessment & Plan - Diagnosis (1) Sepsis Is this a current diagnosis for this admission?: Yes Plan: Secondary to Sacral Pressure Ulcer: Will add Vancomyin to treatment plan. Will continue Ceftazidime. Blood Culture demonstrating Gram Neg Rods. Will repeat blood culture. Wound culture demonstrated Proteus Mirabilis, MRSA, and Enterococcus faecalis. (2) Hypokalemia Is this a current diagnosis for this admission?: Yes Plan: Will give Potassium 40 mEq X1 and 40 mg Anna IV. Will check BMP in am. Will give Magnesium 2 grams IV X 1. (3) Sacral wound Is this a current diagnosis for this admission?: Yes Plan: Proteus, MRSA, and Enterococcus Faecalis Sacral Pressure Ulcer S/P Debridement: Will continue Ceftazidime. (4) Hypotension Is this a current diagnosis for this admission?: Yes Plan: Secondary to Sepsis: Will continue IVF. Pt asymptomatic. Will continue to monitor. (5) Paraplegia Is this a current diagnosis for this admission?: No Plan: Supportive care. (6) Metabolic acidosis Is this a current diagnosis for this admission?: Yes Plan: in setting of Sepsis: Resolved. (7) Abnormal urine finding Is this a current diagnosis for this admission?: Yes Plan: E. coli colonies less than 100,000. Pharmacy verified that pt did not have blood cultures prior to antibiotics. Pt does in and out self caths. Will monitor. (8) DVT prophylaxis Is this a current diagnosis for this admission?: Yes Plan: lovenox. - Time Time Spent with patient: 15-24 minutes
[2017-06-11] MEDS: MAGNESIUM SULFATE/D5W 1 GM/100 ML RTUPB IV SCH ×2 (14:25→14:37)
[2017-06-11] MEDS: VANCOMYCIN HCL 1,500 MG in DEXTROSE 5%-WATER 250 ML IV SCH ×2 (17:46→21:13)
[2017-06-12] MEDS: VANCOMYCIN HCL 1,500 MG in DEXTROSE 5%-WATER 250 ML IV SCH ×4 (03:18→22:36)
[2017-06-12] MEDS: CEFTAZIDIME PENTAHYDRATE 1 GM in DEXTROSE 5%-WATER 50 ML IV SCH ×2 (05:38→15:39)
[2017-06-12 06:11] LABS: APPEARANCE,URINE CLEAR; BILIRUBIN,URINE NEGATIVE (NEGATIVE); GLUCOSE, URINE NEGATIVE (NEGATIVE); KETONES,URINE NEGATIVE (NEGATIVE); LEUKOCYTE ESTERASE,URINE TRACE (NEGATIVE); NITRITE,URINE NEGATIVE (NEGATIVE); PROTEIN,URINE NEGATIVE (NEGATIVE); URINE SPECIFIC GRAVITY 1.006
[2017-06-12 06:34] LABS: HEMATOCRIT 32.1 % (37.9-51.0); HEMOGLOBIN 10.9 g/dL (13.5-17.0); HGB HCT DIFFERENCE 0.6; MEAN CORPUSCULAR HEMOGLOBIN 31.1 pg (27.0-33.4); MEAN CORPUSCULAR HGB CONC 33.9 g/dL (32.0-36.0); MEAN CORPUSCULAR VOLUME 92 fl (80-97); RED CELL DISTRIBUTION WIDTH 15.7 % (11.5-14.0); WHITE BLOOD COUNT 22.6 10^3/uL (4.0-10.5)
[2017-06-12 07:08] LABS: ALANINE AMINOTRANSFERASE 48 U/L (21-72); ALBUMIN 2.7 g/dL (3.5-5.0); ALKALINE PHOSPHATASE 168 U/L (38-126); ANION GAP 14 (5-19); ASPARTATE AMINO TRANSFERASE 32 U/L (17-59); BILIRUBIN,DIRECT 0.5 mg/dL (0.0-0.4); BILIRUBIN,TOTAL 0.7 mg/dL (0.2-1.3); BLOOD UREA NITROGEN 4 mg/dL (7-20); CARBON DIOXIDE 25 mmol/L (22-30); CHLORIDE 103 mmol/L (98-107); CREATININE RESULT 0.43 mg/dL (0.52-1.25); GLUCOSE 91 mg/dL (75-110); MAGNESIUM 2.2 mg/dL (1.6-2.3); POTASSIUM 3.6 mmol/L (3.6-5.0); SODIUM 141.7 mmol/L (137-145); TOTAL PROTEIN 6.1 g/dL (6.3-8.2)
[2017-06-12] MEDS ORDERED: PHENAZOPYRIDINE HCL 100 MG TABLET PO ONE (07:15)
[2017-06-12 07:28] LABS: BAND NEUTROPHILS % (MANUAL) 4 % (3-5); BASOPHILS % (MANUAL) 0 % (0-2); EOSINOPHILS % (MANUAL) 1 % (0-6); LYMPHOCYTES % (MANUAL) 11 % (13-45); TOTAL CELLS COUNTED 100
[2017-06-12 07:30] LABS: ANISOCYTOSIS SLIGHT; HYPOCHROMASIA SLIGHT; POIKILOCYTOSIS SLIGHT; POLYCHROMASIA SLIGHT; TARGET CELLS SLIGHT; TOXIC GRANULATION SLIGHT
[2017-06-12 09:18] LABS: CREATININE RESULT 0.44 mg/dL (0.52-1.25)
[2017-06-12] MEDS: COLLAGENASE CLOSTRIDIUM HIST. OINT 30 GM TOP SCH ×2 (10:13→22:36)
[2017-06-12] MEDS: ENOXAPARIN SODIUM INJ 40 MG/0.4 ML DISP.SYRIN SUBCUT SCH (10:14)
[2017-06-12] MEDS: ACETAMINOPHEN 325 MG TABLET PO PRN (11:19)
--- NOTE | 2017-06-12 15:04 | PDOC PROGRESS REPORT ---
Subjective Progress Note for:: 06/12/17 Subjective:: Pt states that he is doing ok. Pt states that he did have a fever but not as frequent as before. Physical Exam Vital Signs: Temp Pulse Resp BP Pulse Ox 99.6 F 90 16 104/63 96 06/12/17 08:13 06/12/17 08:13 06/12/17 08:13 06/12/17 08:13 06/12/17 08:13 Intake & Output 06/11/17 06/12/17 06/13/17 06:59 06:59 06:59 Intake Total 3024 4475 Output Total 1251 6395 Balance 1773 1900 Weight 80.9 kg 81.6 kg General appearance: PRESENT: no acute distress, well-developed, well-nourished Head exam: PRESENT: atraumatic, normocephalic Eye exam: PRESENT: conjunctiva pink, EOMI. ABSENT: scleral icterus Ear exam: PRESENT: normal external ear exam Mouth exam: PRESENT: moist, tongue midline Neck exam: ABSENT: carotid bruit, JVD, lymphadenopathy, thyromegaly Respiratory exam: PRESENT: clear to auscultation cee. ABSENT: rales, rhonchi, wheezes Cardiovascular exam: PRESENT: RRR. ABSENT: diastolic murmur, rubs, systolic murmur Pulses: PRESENT: normal dorsalis pedis pul Vascular exam: PRESENT: normal capillary refill GI/Abdominal exam: PRESENT: normal bowel sounds, soft. ABSENT: distended, guarding, mass, organolmegaly, rebound, tenderness Rectal exam: PRESENT: deferred Extremities exam: PRESENT: full ROM. ABSENT: calf tenderness, clubbing, pedal edema Musculoskeletal exam: PRESENT: other - paralyzed from the waist down Neurological exam: PRESENT: alert, awake, oriented to person, oriented to place , oriented to time, oriented to situation, CN II-XII grossly intact, motor sensory deficit - paralyzed from the waist down. Psychiatric exam: PRESENT: appropriate affect, normal mood. ABSENT: homicidal ideation, suicidal ideation Skin exam: PRESENT: dry, intact, warm. ABSENT: cyanosis, rash Results Laboratory Results: 06/12/17 05:43 06/12/17 08:55 06/12/17 06/12/17 06/12/17 05:43 05:43 05:50 WBC 22.6 H RBC 3.50 L Hgb 10.9 L Hct 32.1 L MCV 92 MCH 31.1 MCHC 33.9 RDW 15.7 H Plt Count 371 Seg Neutrophils % Not Reportable Lymphocytes % Not Reportable Monocytes % Not Reportable Eosinophils % Not Reportable Basophils % Not Reportable Absolute Neutrophils Not Reportable Absolute Lymphocytes Not Reportable Absolute Monocytes Not Reportable Absolute Eosinophils Not Reportable Absolute Basophils Not Reportable Sodium 141.7 Potassium 3.6 Chloride 103 Carbon Dioxide 25 Anion Gap 14 BUN 4 L Creatinine 0.43 L Est GFR ( Amer) > 60 Est GFR (Non-Af Amer) > 60 Glucose 91 Calcium 8.0 L Magnesium 2.2 Total Bilirubin 0.7 AST 32 ALT 48 Alkaline Phosphatase 168 H Total Protein 6.1 L Albumin 2.7 L Urine Color YELLOW Urine Appearance CLEAR Urine pH 8.0 Ur Specific [place] 1.006 Urine Protein NEGATIVE Urine Glucose (UA) NEGATIVE Urine Ketones NEGATIVE Urine Blood NEGATIVE Urine Nitrite NEGATIVE Ur Leukocyte Esterase TRACE H Urine WBC (Auto) 3 Urine RBC (Auto) 2 06/12/17 08:55 WBC RBC Hgb Hct MCV MCH MCHC RDW Plt Count Seg Neutrophils % Lymphocytes % Monocytes % Eosinophils % Basophils % Absolute Neutrophils Absolute Lymphocytes Absolute Monocytes Absolute Eosinophils Absolute Basophils Sodium Potassium Chloride Carbon Dioxide Anion Gap BUN Creatinine 0.44 L Est GFR ( Amer) > 60 Est GFR (Non-Af Amer) > 60 Glucose Calcium Magnesium Total Bilirubin AST ALT Alkaline Phosphatase Total Protein Albumin Urine Color Urine Appearance Urine pH Ur Specific [place] Urine Protein Urine Glucose (UA) Urine Ketones Urine Blood Urine Nitrite Ur Leukocyte Esterase Urine WBC (Auto) Urine RBC (Auto) Assessment & Plan - Diagnosis (1) Sepsis Is this a current diagnosis for this admission?: Yes Plan: Secondary to Sacral Pressure Ulcer: Vancomyin and Ceftazidime. Blood Culture demonstrating Gram Neg Rods. Repeat blood cultures demonstrated no growth. Wound culture demonstrated Proteus Mirabilis, MRSA, and Enterococcus faecalis. (2) Hypokalemia Is this a current diagnosis for this admission?: Yes Plan: Resolved. (3) Sacral wound Is this a current diagnosis for this admission?: Yes Plan: Proteus, MRSA, and Enterococcus Faecalis Sacral Pressure Ulcer S/P Debridement: Will continue Ceftazidime and Vanco. (4) Hypotension Is this a current diagnosis for this admission?: Yes Plan: Secondary to Sepsis: Will continue IVF. Pt asymptomatic. Blood pressure improving. (5) Paraplegia Is this a current diagnosis for this admission?: No Plan: Supportive care. (6) Metabolic acidosis Is this a current diagnosis for this admission?: Yes Plan: in setting of Sepsis: Resolved. (7) Abnormal urine finding Is this a current diagnosis for this admission?: Yes Plan: E. coli colonies less than 100,000. Pharmacy verified that pt did not have blood cultures prior to antibiotics. Pt does in and out self caths. Will monitor. (8) DVT prophylaxis Is this a current diagnosis for this admission?: Yes Plan: lovenox. - Time Time Spent with patient: 15-24 minutes
[2017-06-12] MEDS: PHENAZOPYRIDINE HCL 100 MG TABLET PO SCH ×2 (15:39→22:36)
[2017-06-13] MEDS: CEFTAZIDIME PENTAHYDRATE 1 GM in DEXTROSE 5%-WATER 50 ML IV SCH ×4 (00:28→23:20)
[2017-06-13] MEDS: ACETAMINOPHEN 325 MG TABLET PO PRN ×3 (04:02→21:42)
[2017-06-13] MEDS: VANCOMYCIN HCL 1,500 MG in DEXTROSE 5%-WATER 250 ML IV SCH ×4 (04:02→21:43)
[2017-06-13] MEDS: PHENAZOPYRIDINE HCL 100 MG TABLET PO SCH ×3 (05:52→21:43)
[2017-06-13 07:41] LABS: HEMATOCRIT 30.4 % (37.9-51.0); HEMOGLOBIN 10.6 g/dL (13.5-17.0); HGB HCT DIFFERENCE 1.4; MEAN CORPUSCULAR HEMOGLOBIN 31.2 pg (27.0-33.4); MEAN CORPUSCULAR HGB CONC 34.9 g/dL (32.0-36.0); MEAN CORPUSCULAR VOLUME 89 fl (80-97); RED CELL DISTRIBUTION WIDTH 15.7 % (11.5-14.0); WHITE BLOOD COUNT 15.4 10^3/uL (4.0-10.5)
[2017-06-13 08:05] LABS: ANION GAP 13 (5-19); BLOOD UREA NITROGEN 4 mg/dL (7-20); CALCIUM 8.1 mg/dL (8.4-10.2); CARBON DIOXIDE 27 mmol/L (22-30); CHLORIDE 102 mmol/L (98-107); GLUCOSE 89 mg/dL (75-110); POTASSIUM 3.8 mmol/L (3.6-5.0); SODIUM 141.9 mmol/L (137-145)
[2017-06-13 08:07] LABS: BAND NEUTROPHILS % (MANUAL) 2 % (3-5); BASOPHILS % (MANUAL) 1 % (0-2); EOSINOPHILS % (MANUAL) 5 % (0-6); LYMPHOCYTES % (MANUAL) 28 % (13-45); TOTAL CELLS COUNTED 100
[2017-06-13 08:09] LABS: ANISOCYTOSIS SLIGHT; HYPOCHROMASIA SLIGHT; POIKILOCYTOSIS SLIGHT; TARGET CELLS SLIGHT; TOXIC GRANULATION SLIGHT
[2017-06-13] MEDS: ENOXAPARIN SODIUM INJ 40 MG/0.4 ML DISP.SYRIN SUBCUT SCH (11:23)
[2017-06-13] MEDS: COLLAGENASE CLOSTRIDIUM HIST. OINT 30 GM TOP SCH ×2 (11:30→21:43)
--- NOTE | 2017-06-13 16:25 | PDOC PROGRESS REPORT ---
Subjective Progress Note for:: 06/13/17 Subjective:: Pt states that he is feeling better. Pt states that his right inner thigh is not as firm. Physical Exam Vital Signs: Temp Pulse Resp BP Pulse Ox 98.5 F 91 16 121/69 99 06/13/17 12:20 06/13/17 14:00 06/13/17 12:20 06/13/17 12:20 06/13/17 12:20 Intake & Output 06/12/17 06/13/17 06/14/17 06:59 06:59 06:59 Intake Total 4475 3666 Output Total 2575 3248 Balance 1900 418 Weight 81.6 kg 75.4 kg General appearance: PRESENT: no acute distress, well-developed, well-nourished Head exam: PRESENT: atraumatic, normocephalic Eye exam: PRESENT: conjunctiva pink, EOMI, PERRLA. ABSENT: scleral icterus Ear exam: PRESENT: normal external ear exam Mouth exam: PRESENT: moist, tongue midline Neck exam: ABSENT: carotid bruit, JVD, lymphadenopathy, thyromegaly Respiratory exam: PRESENT: clear to auscultation cee. ABSENT: rales, rhonchi, wheezes Cardiovascular exam: PRESENT: RRR. ABSENT: diastolic murmur, rubs, systolic murmur Pulses: PRESENT: normal dorsalis pedis pul Vascular exam: PRESENT: normal capillary refill GI/Abdominal exam: PRESENT: normal bowel sounds, soft. ABSENT: distended, guarding, mass, organolmegaly, rebound, tenderness Rectal exam: PRESENT: deferred Extremities exam: PRESENT: other - + bilateral muscle wasting, paralyzed from waist. Neurological exam: PRESENT: alert, altered, awake, oriented to person, oriented to place, oriented to time, CN II-XII grossly intact Psychiatric exam: PRESENT: appropriate affect, normal mood. ABSENT: homicidal ideation, suicidal ideation Skin exam: PRESENT: other - + Right sided gluteal wound with escar and purulent drainage with possible tracking of wound toward thigh.. ABSENT: cyanosis, rash Results Laboratory Results: 06/13/17 07:10 06/13/17 07:10 06/13/17 06/13/17 07:10 07:10 WBC 15.4 H RBC 3.40 L Hgb 10.6 L Hct 30.4 L MCV 89 MCH 31.2 MCHC 34.9 RDW 15.7 H Plt Count 432 Seg Neutrophils % Not Reportable Lymphocytes % Not Reportable Monocytes % Not Reportable Eosinophils % Not Reportable Basophils % Not Reportable Absolute Neutrophils Not Reportable Absolute Lymphocytes Not Reportable Absolute Monocytes Not Reportable Absolute Eosinophils Not Reportable Absolute Basophils Not Reportable Sodium 141.9 Potassium 3.8 Chloride 102 Carbon Dioxide 27 Anion Gap 13 BUN 4 L Creatinine 0.40 L Est GFR ( Amer) > 60 Est GFR (Non-Af Amer) > 60 Glucose 89 Calcium 8.1 L Assessment & Plan - Diagnosis (1) Sepsis Is this a current diagnosis for this admission?: Yes Plan: Secondary to Sacral Pressure Ulcer: Vancomyin and Ceftazidime. Blood Culture demonstrating Gram Neg Rods. Repeat blood cultures demonstrated no growth. Wound culture demonstrated Proteus Mirabilis, MRSA, and Enterococcus faecalis. (2) Hypokalemia Is this a current diagnosis for this admission?: Yes Plan: Resolved. (3) Sacral wound Is this a current diagnosis for this admission?: Yes Plan: Proteus, MRSA, and Enterococcus Faecalis Sacral Pressure Ulcer S/P Debridement: Will continue Ceftazidime and Vanco. (4) Hypotension Is this a current diagnosis for this admission?: Yes Plan: Secondary to Sepsis: Will continue IVF. Pt asymptomatic. Blood pressure improving. (5) Paraplegia Is this a current diagnosis for this admission?: No Plan: Supportive care. (6) Metabolic acidosis Is this a current diagnosis for this admission?: Yes Plan: in setting of Sepsis: Resolved. (7) Leukocytosis Is this a current diagnosis for this admission?: Yes Plan: Secondary to Sepsis due to sacral wound: Resolving. Will continue current abx. (8) Abnormal urine finding Is this a current diagnosis for this admission?: Yes Plan: E. coli colonies less than 100,000. Pharmacy verified that pt did not have blood cultures prior to antibiotics. Pt does in and out self caths. Will monitor. (9) DVT prophylaxis Is this a current diagnosis for this admission?: Yes Plan: lovenox. - Time Time Spent with patient: 15-24 minutes
[2017-06-14] MEDS: VANCOMYCIN HCL 1,500 MG in DEXTROSE 5%-WATER 250 ML IV SCH ×4 (04:21→20:07)
[2017-06-14] MEDS: CEFTAZIDIME PENTAHYDRATE 1 GM in DEXTROSE 5%-WATER 50 ML IV SCH ×3 (06:43→22:50)
[2017-06-14] MEDS: PHENAZOPYRIDINE HCL 100 MG TABLET PO SCH ×2 (06:43→15:44)
[2017-06-14 07:19] LABS: HEMATOCRIT 33.7 % (37.9-51.0); HEMOGLOBIN 11.6 g/dL (13.5-17.0); HGB HCT DIFFERENCE 1.1; MEAN CORPUSCULAR HEMOGLOBIN 31.3 pg (27.0-33.4); MEAN CORPUSCULAR HGB CONC 34.6 g/dL (32.0-36.0); MEAN CORPUSCULAR VOLUME 91 fl (80-97); RED BLOOD COUNT 3.72 10^6/uL (4.35-5.55)
[2017-06-14 07:33] LABS: ANION GAP 12 (5-19); BLOOD UREA NITROGEN 5 mg/dL (7-20); CALCIUM 8.5 mg/dL (8.4-10.2); CARBON DIOXIDE 27 mmol/L (22-30); CHLORIDE 102 mmol/L (98-107); CREATININE RESULT 0.44 mg/dL (0.52-1.25); GLUCOSE 100 mg/dL (75-110); POTASSIUM 3.9 mmol/L (3.6-5.0)
[2017-06-14 07:52] LABS: BAND NEUTROPHILS % (MANUAL) 2 % (3-5); BASOPHILS % (MANUAL) 0 % (0-2); EOSINOPHILS % (MANUAL) 9 % (0-6); LYMPHOCYTES % (MANUAL) 11 % (13-45); TOTAL CELLS COUNTED 100
[2017-06-14 07:54] LABS: ANISOCYTOSIS 1+; TARGET CELLS SLIGHT; TOXIC GRANULATION 1+
[2017-06-14] MEDS: NORMAL SALINE 1000 ML 1,000 ML IV PRN (08:14)
[2017-06-14] MEDS: COLLAGENASE CLOSTRIDIUM HIST. OINT 30 GM TOP SCH ×2 (10:42→22:50)
[2017-06-14] MEDS: ENOXAPARIN SODIUM INJ 40 MG/0.4 ML DISP.SYRIN SUBCUT SCH (11:33)
--- NOTE | 2017-06-14 13:47 | PDOC PROGRESS REPORT ---
Subjective Progress Note for:: 06/14/17 Subjective:: Pt states that he is doing better. Pt was wanting to known when he would be able to go home. Physical Exam Vital Signs: Temp Pulse Resp BP Pulse Ox 99.8 F 81 20 101/52 L 94 06/14/17 11:40 06/14/17 11:40 06/14/17 11:40 06/14/17 11:40 06/14/17 11:40 Intake & Output 06/13/17 06/14/17 06/15/17 06:59 06:59 06:59 Intake Total 3666 4541 218 Output Total 3248 5280 1250 Balance 098 -792 -1033 Weight 75.4 kg 79.7 kg General appearance: PRESENT: no acute distress, well-developed, well-nourished Head exam: PRESENT: atraumatic, normocephalic Eye exam: PRESENT: conjunctiva pink, EOMI, PERRLA. ABSENT: scleral icterus Ear exam: PRESENT: normal external ear exam Mouth exam: PRESENT: moist, tongue midline Neck exam: ABSENT: carotid bruit, JVD, lymphadenopathy, thyromegaly Respiratory exam: PRESENT: clear to auscultation cee. ABSENT: rales, rhonchi, wheezes Cardiovascular exam: PRESENT: RRR. ABSENT: diastolic murmur, rubs, systolic murmur Pulses: PRESENT: normal dorsalis pedis pul Vascular exam: PRESENT: normal capillary refill GI/Abdominal exam: PRESENT: normal bowel sounds, soft. ABSENT: distended, guarding, mass, organolmegaly, rebound, tenderness Rectal exam: PRESENT: deferred Extremities exam: PRESENT: other - + bilateral muscle wasting Musculoskeletal exam: PRESENT: other - paralyzed from the waist down Neurological exam: PRESENT: alert, altered, awake, oriented to person, oriented to place, oriented to time, oriented to situation, CN II-XII grossly intact Psychiatric exam: PRESENT: appropriate affect, normal mood. ABSENT: homicidal ideation, suicidal ideation Skin exam: PRESENT: other - Right buttock sacral wound with large escar area. Results Laboratory Results: 06/14/17 06:37 06/14/17 06:37 06/14/17 06/14/17 06:37 06:37 WBC 17.0 H RBC 3.72 L Hgb 11.6 L Hct 33.7 L MCV 91 MCH 31.3 MCHC 34.6 RDW 16.0 H Plt Count 485 H Seg Neutrophils % Not Reportable Lymphocytes % Not Reportable Monocytes % Not Reportable Eosinophils % Not Reportable Basophils % Not Reportable Absolute Neutrophils Not Reportable Absolute Lymphocytes Not Reportable Absolute Monocytes Not Reportable Absolute Eosinophils Not Reportable Absolute Basophils Not Reportable Sodium 141.0 Potassium 3.9 Chloride 102 Carbon Dioxide 27 Anion Gap 12 BUN 5 L Creatinine 0.44 L Est GFR ( Amer) > 60 Est GFR (Non-Af Amer) > 60 Glucose 100 Calcium 8.5 Assessment & Plan - Diagnosis (1) Sepsis Is this a current diagnosis for this admission?: Yes Plan: Secondary to Sacral Pressure Ulcer: Vancomyin and Ceftazidime. Repeat blood cultures demonstrated no growth. Wound culture demonstrated Proteus Mirabilis, MRSA, and Enterococcus faecalis. Will have PICC line placed. (2) Hypokalemia Is this a current diagnosis for this admission?: Yes Plan: Resolved. (3) Sacral wound Is this a current diagnosis for this admission?: Yes Plan: Proteus, MRSA, and Enterococcus Faecalis Sacral Pressure Ulcer S/P Debridement: Will continue Ceftazidime and Vanco. (4) Hypotension Is this a current diagnosis for this admission?: Yes Plan: Secondary to Sepsis: Will continue IVF. Pt asymptomatic. Blood pressure improving. (5) Paraplegia Is this a current diagnosis for this admission?: No Plan: Supportive care. (6) Metabolic acidosis Is this a current diagnosis for this admission?: Yes Plan: in setting of Sepsis: Resolved. (7) Leukocytosis Is this a current diagnosis for this admission?: Yes Plan: Secondary to Sepsis due to sacral wound: Resolving. WBC slightly elevated from yesterday but will continue to monitor. Will continue current abx. (8) Abnormal urine finding Is this a current diagnosis for this admission?: Yes Plan: E. coli colonies less than 100,000. Pharmacy verified that pt did not have blood cultures prior to antibiotics. Pt does in and out self caths. Will monitor. (9) DVT prophylaxis Is this a current diagnosis for this admission?: Yes Plan: lovenox.
--- NOTE | 2017-06-14 15:41 | RADIOLOGY REPORT (SQ) ---
EXAM DESCRIPTION: PICC INSERTION COMPLETED DATE/TIME: 06/14/2017 3:13 pm REASON FOR STUDY: iv antibiotic COMPARISON: None. FLUOROSCOPY TIME: 19 seconds 1 minutes digital fluoroscopic image and 1 ultrasound image saved to PACS. TECHNIQUE: Fluoroscopic and ultrasound guided PICC placement. LIMITATIONS: None. PROCEDURE: After written consent and assessment were obtained, the patient was brought into the fluo roscopy room and place supine on the table. Ultrasound was used on the patient's left arm for PICC a ccess. The left arm was prepped and draped in a sterile fashion along with the ultrasound probe. The entry site was anesthetized with 3 mL of 1% lidocaine. A 21 gauge 7 cm needle was advanced through th e skin and into the basilic vein under live ultrasound guidance. An ultrasound image was saved to [facility] confirming access site. A .018 guide wire was then inserted through the needle and into the venou s system. The needle was the removed and an 11 blade scalpel was used to make a 1cm skin incision. A 5 fr peel-away sheath was advanced over the wire and into the venous system. A measurement was then made using the existing wire and live fluoroscopic guidance. The wire was then removed and the trimme d. The PICC was advanced through the peel-away sheath and into the venous system. The peel-away sheat h was removed and the catheter was adhered to the patients arm with a stat lock. The catheter was the n aspirated and flushed and a sterile bandage was placed over the access site. A fluoroscopic spot i mage was saved to PACS confirming the catheter tip within the superior vena cava. IMPRESSION: SUCCESSFUL PLACEMENT OF A 5 FR DUAL LUMEN 41 CM PICC IN THE LEFT BASILIC VEIN. COMMENT: Patient medication list reviewed: Yes- Quality ID# 130:Eligible professional attests to doc umenting in the medical record they obtained, updated, or reviewed the patient's current medications. . Quality ID 145: Final reports for procedures using fluoroscopy that document radiation exposure mayte marisela, or exposure time and number of fluorographic images (if radiation exposure indices are not avail able) Quality ID #76: The patient was prepped and draped using maximum sterile barrier technique including cap, mask, sterile gown, sterile gloves, a large sterile sheet, hand hygiene, and 2% Chlorhexidine fo r cutaneous antisepsis. When ultrasound is used, sterile ultrasound techniques are followed requiring sterile gel and sterile probes. TECHNICAL DOCUMENTATION: JOB ID: [id number] [employer]- All Rights Reserved
--- NOTE | 2017-06-14 15:57 | RADIOLOGY REPORT (SQ) ---
EXAM DESCRIPTION: FLUORO/CV PLACEMENT; U/S GUIDE FOR VASCULAR ACCESS COMPLETE DATE/TIME: 06/14/2017 3:47 pm REASON FOR STUDY: IV ABX FINDINGS: Please see combined report for performance of procedure and radiologic supervision and int erpretation. IMPRESSION: Please see combined report for performance of procedure and radiologic supervision and i nterpretation.
[2017-06-14] MEDS: ACETAMINOPHEN 325 MG TABLET PO PRN ×2 (17:10→23:44)
--- NOTE | 2017-06-14 19:14 | PDOC PROGRESS REPORT ---
Subjective Progress Note for:: 06/14/17 Subjective:: MEKHI DEUTSCH is a 36 year old male with history of paraplegia since age 15 who is admitted to the hospitalists after presenting to the ED with a 3 day history of subjective fevers, weakness, and chills. He has a 1.5 month history of sacral decubitus.He had some hypotension that was treated on admission. He had an initial debridement with the plan for additional debridement. Physical Exam Vital Signs: Temp Pulse Resp BP Pulse Ox 98.4 F 81 17 119/66 97 06/14/17 15:48 06/14/17 15:48 06/14/17 15:48 06/14/17 15:48 06/14/17 15:48 Intake & Output 06/13/17 06/14/17 06/15/17 06:59 06:59 06:59 Intake Total 3666 4541 2519 Output Total 3248 5280 2250 Balance 418 -739 269 Weight 75.4 kg 79.7 kg General appearance: PRESENT: no acute distress Head exam: PRESENT: atraumatic Eye exam: PRESENT: conjunctiva pink Respiratory exam: PRESENT: clear to auscultation cee Cardiovascular exam: PRESENT: RRR, +S1, +S2 GI/Abdominal exam: ABSENT: ascites, diminished bowel sounds, distended, firm, guarding, hernia, hyperactive bowel sounds, hypoactive bowel sounds, mass, Miner's sign, normal bowel sounds, organolmegaly, rebound, rigid, soft, tenderness, other Neurological exam: PRESENT: alert, CN II-XII grossly intact, other - paraplegic Skin exam: PRESENT: other - There is a 4cm x 4cm area in the right posterolateral thigh with necrotic tissue and foul smell. Results Laboratory Results: 06/14/17 06:37 06/14/17 06:37 06/14/17 06/14/17 06:37 06:37 WBC 17.0 H RBC 3.72 L Hgb 11.6 L Hct 33.7 L MCV 91 MCH 31.3 MCHC 34.6 RDW 16.0 H Plt Count 485 H Seg Neutrophils % Not Reportable Lymphocytes % Not Reportable Monocytes % Not Reportable Eosinophils % Not Reportable Basophils % Not Reportable Absolute Neutrophils Not Reportable Absolute Lymphocytes Not Reportable Absolute Monocytes Not Reportable Absolute Eosinophils Not Reportable Absolute Basophils Not Reportable Sodium 141.0 Potassium 3.9 Chloride 102 Carbon Dioxide 27 Anion Gap 12 BUN 5 L Creatinine 0.44 L Est GFR ( Amer) > 60 Est GFR (Non-Af Amer) > 60 Glucose 100 Calcium 8.5 Impressions: Guidance Fluoroscopy 06/14/17 00:00 IMPRESSION: Please see combined report for performance of procedure and radiologic supervision and interpretation. Interventional Vascular Procedure 06/14/17 00:00 IMPRESSION: Please see combined report for performance of procedure and radiologic supervision and interpretation. PICC Line Insertion 06/14/17 00:00 IMPRESSION: SUCCESSFUL PLACEMENT OF A 5 FR DUAL LUMEN 41 CM PICC IN THE LEFT BASILIC VEIN. Assessment & Plan - Diagnosis (1) Decubitus ulcer of trochanteric region of right hip, stage 3 Is this a current diagnosis for this admission?: Yes Plan: The patient will be scheduled for additional debridement for tomorrow NPO past midnight tonight
[2017-06-14] MEDS: NORMAL SALINE 10 ML SDV (SCHEDULED) IV SCH (22:52)
[2017-06-15] MEDS ORDERED: PHENAZOPYRIDINE HCL 100 MG TABLET ONE (00:34)
[2017-06-15] MEDS: PHENAZOPYRIDINE HCL 100 MG TABLET PO SCH ×4 (00:38→21:29)
[2017-06-15] MEDS: VANCOMYCIN HCL 1,500 MG in DEXTROSE 5%-WATER 250 ML IV SCH ×4 (02:47→21:29)
[2017-06-15] MEDS: NORMAL SALINE 1000 ML 1,000 ML IV PRN (02:50)
[2017-06-15] MEDS: NORMAL SALINE 10 ML SDV (AFTER EACH USE) IV PRN (04:24)
[2017-06-15 04:46] LABS: ABSOLUTE BASOPHILS # (AUTO) 0.1 10^3/uL (0.0-0.2); ABSOLUTE EOSINOPHILS # (AUTO) 0.8 10^3/uL (0.0-0.6); ABSOLUTE LYMPHOCYTES (AUTO) 2.2 10^3/uL (0.5-4.7); ABSOLUTE MONOCYTES (AUTO) 1.8 10^3/uL (0.1-1.4); ABSOLUTE NEUT (AUTO) 12.2 10^3/uL (1.7-8.2); BASOPHILS % (AUTO) 0.6 % (0-2); EOSINOPHILS % (AUTO) 4.8 % (0-6); HEMATOCRIT 30.4 % (37.9-51.0); HEMOGLOBIN 10.5 g/dL (13.5-17.0); HGB HCT DIFFERENCE 1.1; LYMPHOCYTES % (AUTO) 12.7 % (13-45); MEAN CORPUSCULAR HEMOGLOBIN 30.9 pg (27.0-33.4); MEAN CORPUSCULAR HGB CONC 34.4 g/dL (32.0-36.0); MEAN CORPUSCULAR VOLUME 90 fl (80-97); MONOCYTES % (AUTO) 10.4 % (3-13); RED BLOOD COUNT 3.38 10^6/uL (4.35-5.55); SEGMENTED NEUTROPHILS % (AUTO) 71.5 % (42-78); WHITE BLOOD COUNT 17.1 10^3/uL (4.0-10.5)
[2017-06-15 05:11] LABS: ANION GAP 11 (5-19); BLOOD UREA NITROGEN 7 mg/dL (7-20); CALCIUM 8.4 mg/dL (8.4-10.2); CARBON DIOXIDE 26 mmol/L (22-30); CHLORIDE 101 mmol/L (98-107); CREATININE RESULT 0.48 mg/dL (0.52-1.25); GLUCOSE 109 mg/dL (75-110); POTASSIUM 4.1 mmol/L (3.6-5.0); SODIUM 138.1 mmol/L (137-145)
[2017-06-15] MEDS: CEFTAZIDIME PENTAHYDRATE 1 GM in DEXTROSE 5%-WATER 50 ML IV SCH ×2 (05:26→15:45)
[2017-06-15] MEDS ORDERED: FENTANYL CITRATE INJ/PF 100 MCG/2 ML AMPUL ONE (07:23)
[2017-06-15] MEDS ORDERED: MIDAZOLAM 2 MG/2 ML INJ ONE (07:23)
[2017-06-15] MEDS ORDERED: PROPOFOL INJ 200 MG/20 ML VIAL IV ONE (07:24)
[2017-06-15] MEDS ORDERED: MORPHINE SULFATE 10 MG/ML INJ ONE (07:24)
[2017-06-15] MEDS ORDERED: BUPIVACAINE HCL 0.25 % INJ/PF (2.5 MG/1 ML) 30 ML VIAL ONE (07:58)
[2017-06-15] MEDS ORDERED: LIDOCAINE 1% INJ-PF (10 MG/ML) 30 ML SDV ONE (07:58)
[2017-06-15] MEDS ORDERED: DIPHENHYDRAMINE HCL 50 MG/ML VIAL IV PRN (08:21)
[2017-06-15] MEDS ORDERED: MEPERIDINE HCL/PF INJ 25 MG/1 ML DISP.SYRIN IV PRN (08:21)
[2017-06-15] MEDS ORDERED: OXYCODONE-ACETAMINOPHEN 5-325 MG TABLET PO PRN ×2 (08:21)
[2017-06-15] MEDS ORDERED: FENTANYL CITRATE INJ/PF 100 MCG/2 ML AMPUL IV PRN ×3 (08:21)
[2017-06-15] MEDS ORDERED: MORPHINE SULFATE 10 MG/ML INJ IV PRN (08:21)
[2017-06-15] MEDS ORDERED: PROMETHAZINE HCL INJ 25 MG/1 ML VIAL IV PRN ×2 (08:21)
--- NOTE | 2017-06-15 09:39 | Operative Report ---
Operative Report DATE OF SURGERY: 06/15/17 PREOPERATIVE DIAGNOSIS: Infected Right Trochanteric Hip Decubitus Ulcer Stage 3 POSTOPERATIVE DIAGNOSIS: Infected Right Trochanteric Hip Decubitus Ulcer Stage 3 OPERATION: Excisional Debridement of Stage 3 Infected Right Trochanteric Hip Decubitus Ulcer with scalpel to deep subcutaneous fat SURGEON: PACHECO GUERRERO ANESTHESIA: LMAC TISSUE REMOVED OR ALTERED: Skin and subcutaneous fat COMPLICATIONS: None ESTIMATED BLOOD LOSS: 200 ml INTRAOPERATIVE FINDINGS: 6cm x 5.8cm x 1cm deep ulcer in the right trochanteric hip region with necrotic tissue in its bed and gangrenous bridge of skin. Foul malodorous drainage. Curved Surgical scar tissue around the ulcer from prior plastic flap closure. PROCEDURE: The patient was brought to the operating room and placed on the operating table. He was positioned in the left lateral decubitus position. He did not require anesthesia as he is paraplegic and anesthetic in both lower extremities. The right hip area was prepped with betadine and sterile drapes laid to expose the ulcer. A time-out was done. Under sterile aseptic conditions, using the #10 scalpel blade, necrotic nonviable tissue was excised including a rim of skin at the peripheral edge of the ulcer which had undermined the ulcer. Necrotic tissue in the ulcer floor was excised. Hemostasis was secured with manual pressure, 2-0 silk suture ligature and the monopolar electrosurgical unit. The wound was then irrigated with saline and a wet-to-dry saline -kerlex-gauze dressing covered with ABD and held with tape was applied. The patient tolerated the procedure well and was transferred to the PACU in stable condition.
[2017-06-15] MEDS: COLLAGENASE CLOSTRIDIUM HIST. OINT 30 GM TOP SCH ×2 (10:31→21:24)
[2017-06-15] MEDS: ENOXAPARIN SODIUM INJ 40 MG/0.4 ML DISP.SYRIN SUBCUT SCH (10:36)
[2017-06-15] MEDS: NORMAL SALINE 10 ML SDV (SCHEDULED) IV SCH ×2 (10:36→21:29)
[2017-06-15] MEDS: ACETAMINOPHEN 325 MG TABLET PO PRN (12:45)
--- NOTE | 2017-06-15 18:57 | PDOC PROGRESS REPORT ---
Subjective Progress Note for:: 06/15/17 Subjective:: Patient admitted with sepsis due to UTI and sacral wound. Patient currently doing better although he continues to have leukocytosis. This too is currently trending down. Patient is status post second debridement today. Physical Exam Vital Signs: Temp Pulse Resp BP Pulse Ox 98.5 F 78 16 111/71 95 06/15/17 03:45 06/15/17 03:45 06/15/17 03:45 06/15/17 03:45 06/15/17 03:45 Intake & Output 06/14/17 06/15/17 06/16/17 06:59 06:59 06:59 Intake Total 4541 4539 Output Total 5280 4625 Balance -739 -86 Weight 79.7 kg 72.3 kg General appearance: PRESENT: no acute distress, well-developed, well-nourished Head exam: PRESENT: normocephalic Eye exam: PRESENT: EOMI. ABSENT: scleral icterus Ear exam: PRESENT: normal external ear exam Mouth exam: PRESENT: moist Neck exam: ABSENT: carotid bruit, JVD, lymphadenopathy, thyromegaly Respiratory exam: PRESENT: clear to auscultation cee. ABSENT: rales, rhonchi, wheezes Cardiovascular exam: PRESENT: RRR. ABSENT: diastolic murmur, rubs, systolic murmur Pulses: PRESENT: normal dorsalis pedis pul Vascular exam: PRESENT: normal capillary refill GI/Abdominal exam: PRESENT: normal bowel sounds, soft. ABSENT: distended, guarding, mass, organolmegaly, rebound, tenderness Rectal exam: PRESENT: deferred Extremities exam: PRESENT: full ROM. ABSENT: calf tenderness, clubbing, pedal edema Neurological exam: PRESENT: alert, awake, oriented to person, oriented to place , oriented to time, oriented to situation, other - paraplegic. ABSENT: motor sensory deficit Psychiatric exam: PRESENT: appropriate affect, normal mood. ABSENT: homicidal ideation, suicidal ideation Skin exam: PRESENT: dry, intact, warm. ABSENT: cyanosis, rash Results Laboratory Results: 06/15/17 04:30 06/15/17 04:30 06/15/17 06/15/17 04:30 04:30 WBC 17.1 H RBC 3.38 L Hgb 10.5 L Hct 30.4 L MCV 90 MCH 30.9 MCHC 34.4 RDW 16.0 H Plt Count 491 H Seg Neutrophils % 71.5 Lymphocytes % 12.7 L Monocytes % 10.4 Eosinophils % 4.8 Basophils % 0.6 Absolute Neutrophils 12.2 H Absolute Lymphocytes 2.2 Absolute Monocytes 1.8 H Absolute Eosinophils 0.8 H Absolute Basophils 0.1 Sodium 138.1 Potassium 4.1 Chloride 101 Carbon Dioxide 26 Anion Gap 11 BUN 7 Creatinine 0.48 L Est GFR ( Amer) > 60 Est GFR (Non-Af Amer) > 60 Glucose 109 Calcium 8.4 Impressions: Guidance Fluoroscopy 06/14/17 00:00 IMPRESSION: Please see combined report for performance of procedure and radiologic supervision and interpretation. Interventional Vascular Procedure 06/14/17 00:00 IMPRESSION: Please see combined report for performance of procedure and radiologic supervision and interpretation. PICC Line Insertion 06/14/17 00:00 IMPRESSION: SUCCESSFUL PLACEMENT OF A 5 FR DUAL LUMEN 41 CM PICC IN THE LEFT BASILIC VEIN. Assessment & Plan - Diagnosis (1) Sepsis Is this a current diagnosis for this admission?: Yes Plan: Possible due to decub ulcer. Patient also with ecoli in urine but may be colonized due to in and out cath. Patient currently on vacomycin and cipro for his wound infection. (2) Abnormal urine finding Is this a current diagnosis for this admission?: Yes Plan: Ecoli in urine patient received 6 days of ceftazidime. Patient may be colonized as this was a low bacterial count. (3) DVT prophylaxis Is this a current diagnosis for this admission?: Yes Plan: Conitnue lovenox. (4) Hypokalemia Is this a current diagnosis for this admission?: Yes Plan: Resolved. (5) Hypotension Is this a current diagnosis for this admission?: Yes Plan: Stable. Possible due to sepsis earlier in this admission. (6) Leukocytosis Is this a current diagnosis for this admission?: Yes Plan: Due to infection. Gradually improving. Will recheck in the morning. (7) Metabolic acidosis Is this a current diagnosis for this admission?: Yes Plan: Due to sepsis now resolved. (8) Paraplegia Is this a current diagnosis for this admission?: No Plan: Continue supportive care. (9) Sacral wound Is this a current diagnosis for this admission?: Yes Plan: Patient status post debridement x 2. Will check CT abdomen and pelvis to look for osteo although unlikely. This will determine if patient will need treatment for 2 weeks versus 6 weeks. - Time Time Spent with patient: Less than 15 minutes Anticipated discharge: Home with Homehealth - Inpatient Certification Medical Necessity: Need for IV Antibiotics
[2017-06-15] MEDS: CIPROFLOXACIN HCL 500 MG TABLET PO SCH (21:29)
[2017-06-16] MEDS: NORMAL SALINE 1000 ML 1,000 ML IV PRN ×2 (00:32→15:35)
[2017-06-16] MEDS: VANCOMYCIN HCL 1,500 MG in DEXTROSE 5%-WATER 250 ML IV SCH ×4 (02:44→21:29)
[2017-06-16 04:55] LABS: ABSOLUTE BASOPHILS # (AUTO) 0.1 10^3/uL (0.0-0.2); ABSOLUTE EOSINOPHILS # (AUTO) 0.7 10^3/uL (0.0-0.6); ABSOLUTE LYMPHOCYTES (AUTO) 1.9 10^3/uL (0.5-4.7); ABSOLUTE MONOCYTES (AUTO) 1.4 10^3/uL (0.1-1.4); ABSOLUTE NEUT (AUTO) 13.4 10^3/uL (1.7-8.2); BASOPHILS % (AUTO) 0.4 % (0-2); EOSINOPHILS % (AUTO) 4.1 % (0-6); HEMATOCRIT 25.1 % (37.9-51.0); HEMOGLOBIN 8.7 g/dL (13.5-17.0); LYMPHOCYTES % (AUTO) 11.1 % (13-45); MEAN CORPUSCULAR HEMOGLOBIN 31.9 pg (27.0-33.4); MEAN CORPUSCULAR HGB CONC 34.8 g/dL (32.0-36.0); MEAN CORPUSCULAR VOLUME 92 fl (80-97); MONOCYTES % (AUTO) 7.7 % (3-13); RED BLOOD COUNT 2.74 10^6/uL (4.35-5.55); RED CELL DISTRIBUTION WIDTH 16.2 % (11.5-14.0); SEGMENTED NEUTROPHILS % (AUTO) 76.7 % (42-78); WHITE BLOOD COUNT 17.5 10^3/uL (4.0-10.5)
[2017-06-16 05:16] LABS: ANION GAP 11 (5-19); BLOOD UREA NITROGEN 8 mg/dL (7-20); CALCIUM 7.8 mg/dL (8.4-10.2); CARBON DIOXIDE 25 mmol/L (22-30); CHLORIDE 95 mmol/L (98-107); CREATININE RESULT 0.44 mg/dL (0.52-1.25); GLUCOSE 315 mg/dL (75-110); POTASSIUM 4.2 mmol/L (3.6-5.0); SODIUM 130.6 mmol/L (137-145)
[2017-06-16] MEDS: PHENAZOPYRIDINE HCL 100 MG TABLET PO SCH ×3 (05:25→21:29)
[2017-06-16] MEDS: ACETAMINOPHEN 325 MG TABLET PO PRN ×2 (07:53→17:27)
--- NOTE | 2017-06-16 11:51 | RADIOLOGY REPORT (SQ) ---
EXAM DESCRIPTION: CT ABD/PELVIS WITH IV ORAL COMPLETED DATE/TIME: 06/16/2017 11:32 am REASON FOR STUDY: decub ulcer r/o osteo COMPARISON: [facility] pelvis films 04/27/2016 CT lumbar spine 04/01/2014 TECHNIQUE: CT scan of the abdomen and pelvis performed using helical scanning technique with dynamic intravenous contrast injection. Patient drank oral contrast. Images reviewed with lung, soft tissue , and bone windows. Reconstructed coronal and sagittal MPR images reviewed. Delayed images for evalua tion of the urinary system also acquired. All images stored on PACS. All CT scanners at this facility use dose modulation, iterative reconstruction, and/or weight based d osing when appropriate to reduce radiation dose to as low as reasonably achievable (ALARA). [facility]: Dose Right [facility]: CareDose [facility]: Dose Right [facility]: Teradose 4D [facility]: Xpreso CONTRAST TYPE AND DOSE: contrast/concentration: Isovue 370.00 mg/ml; Total Contrast Delivered: 78.0 ml; Total Saline Delivered: 67.0 ml RENAL FUNCTION: Creatinine 0.94 RADIATION DOSE: CT Rad equipment meets quality standard of care and radiation dose reduction techniq ues were employed. CTDIvol: 7.4 - 8.3 mGy. DLP: 873 mGy-cm.. LIMITATIONS: Streak artifact from lower thoracic and upper lumbar hardware. Streak artifact in the pelvis from left hip lag screws. FINDINGS: LOWER CHEST: There is bandlike consolidation in the right and left posterior costophrenic sulci from atelectasis. No pleural effusion. LIVER: Normal size. No masses. No dilated ducts. SPLEEN: Normal size. No focal lesions. PANCREAS: No masses. No significant calcifications. No adjacent inflammation or peripancreatic fluid collections. Pancreatic duct not dilated. GALLBLADDER: No identified stones by CT criteria. No inflammatory changes to suggest cholecystitis. ADRENAL GLANDS: No significant masses or asymmetry. RIGHT KIDNEY AND URETER: No solid masses. No significant calcifications. No hydronephrosis or hyd roureter. LEFT KIDNEY AND URETER: No solid masses. No significant calcifications. No hydronephrosis or hydr oureter. AORTA AND VESSELS: No aneurysm. No dissection. Renal arteries, SMA, celiac without stenosis. RETROPERITONEUM: No retroperitoneal adenopathy, hemorrhage or masses. BOWEL AND PERITONEAL CAVITY: No masses or inflammatory changes. No free fluid or peritoneal masses. APPENDIX: Normal. PELVIS: No free pelvic fluid. No adenopathy. Asymmetric rightward lateral bladder wall thickening, with a 2.3 x 1.3 cm probable mucosal mass axial immediate and delayed image 80. ABDOMINAL WALL: No masses. No hernias. BONES: There is a 2.5 cm lytic lesion with sclerotic peripheral borders along the inferior aspect of the right ischium, best shown on axial image 92 and coronal image 70. 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 OTHER: Patient has a 7 cm diameter decubitus ulcer in the right infra gluteal fold with surrounding s tranding in the adjacent fat. Small fluid collection deep to the medial edge of the ulcer, 2 cm in d iameter on axial image 92. Inflammation extends into the ischiorectal fossa fat on axial image 88. IMPRESSION: 7 cm right gluteal region decubitus ulcer along the infra gluteal fold. There is a 2 cm fluid collection along its medial most aspect, inflammation extends superiorly into the deep pelvic ischiorectal fossa fat. 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 TECHNICAL DOCUMENTATION: JOB ID: [id number] Quality ID # [id number]: Final reports with documentation of one or more dose reduction techniques (e.g., Au tomated exposure control, adjustment of the mA and/or kV according to patient size, use of iterative reconstruction technique) 2010 [employer]- All Rights Reserved
[2017-06-16] MEDS: CIPROFLOXACIN HCL 500 MG TABLET PO SCH ×2 (11:53→21:29)
[2017-06-16] MEDS: NORMAL SALINE 10 ML SDV (SCHEDULED) IV SCH ×2 (11:54→21:29)
[2017-06-16] MEDS: COLLAGENASE CLOSTRIDIUM HIST. OINT 30 GM TOP SCH ×2 (11:57→21:25)
[2017-06-16] MEDS: ENOXAPARIN SODIUM INJ 40 MG/0.4 ML DISP.SYRIN SUBCUT SCH (12:00)
[2017-06-16] MEDS ORDERED: SODIUM HYPOCHLORITE 0.25% SOLN 473 ML BOTTLE TP ONE (17:00)
--- NOTE | 2017-06-16 19:57 | PDOC PROGRESS REPORT ---
Subjective Progress Note for:: 06/16/17 Subjective:: POD #1 s/p repeat debridement of right trochanteric hip decubitus ulcer Patient wants to know if he can go home. No fever. Physical Exam Vital Signs: Temp Pulse Resp BP Pulse Ox 99.0 F 99 18 106/61 94 06/16/17 19:32 06/16/17 19:00 06/16/17 16:20 06/16/17 16:20 06/16/17 16:20 Intake & Output 06/15/17 06/16/17 06/17/17 06:59 06:59 06:59 Intake Total 4539 5681 2837 Output Total 4625 2125 1800 Balance -86 3556 1037 Weight 72.3 kg 77.8 kg General appearance: PRESENT: no acute distress Head exam: PRESENT: atraumatic Eye exam: PRESENT: conjunctiva pink Respiratory exam: PRESENT: clear to auscultation cee Cardiovascular exam: PRESENT: RRR, +S1, +S2 GI/Abdominal exam: PRESENT: normal bowel sounds Neurological exam: PRESENT: alert, oriented to person, oriented to place, oriented to time, CN II-XII grossly intact, other - paraplegic Skin exam: PRESENT: other - 9.3cm x 6cm x 1.5cm ulcer in the right trochanteric hip area; appears street cleaner but has a slightly greenish coat on the bed Results Laboratory Results: 06/16/17 04:35 06/16/17 04:35 06/16/17 06/16/17 06/16/17 04:35 04:35 04:35 WBC 17.5 H RBC 2.74 L Hgb 8.7 L Hct 25.1 L MCV 92 MCH 31.9 MCHC 34.8 RDW 16.2 H Plt Count 461 H Seg Neutrophils % 76.7 Lymphocytes % 11.1 L Monocytes % 7.7 Eosinophils % 4.1 Basophils % 0.4 Absolute Neutrophils 13.4 H Absolute Lymphocytes 1.9 Absolute Monocytes 1.4 Absolute Eosinophils 0.7 H Absolute Basophils 0.1 Sodium 130.6 L Potassium 4.2 Chloride 95 L Carbon Dioxide 25 Anion Gap 11 BUN 8 Creatinine 0.44 L Est GFR ( Amer) > 60 Est GFR (Non-Af Amer) > 60 Glucose 315 H Calcium 7.8 L Magnesium 2.2 Impressions: Guidance Fluoroscopy 06/14/17 00:00 IMPRESSION: Please see combined report for performance of procedure and radiologic supervision and interpretation. Interventional Vascular Procedure 06/14/17 00:00 IMPRESSION: Please see combined report for performance of procedure and radiologic supervision and interpretation. PICC Line Insertion 06/14/17 00:00 IMPRESSION: SUCCESSFUL PLACEMENT OF A 5 FR DUAL LUMEN 41 CM PICC IN THE LEFT BASILIC VEIN. Abdomen/Pelvis CT 06/16/17 00:00 IMPRESSION: 7 cm right gluteal region decubitus ulcer along the infra gluteal fold. There is a 2 cm fluid collection along its medial most aspect, inflammation extends superiorly into the deep pelvic ischiorectal fossa fat. 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 Assessment & Plan - Diagnosis (1) Decubitus ulcer of trochanteric region of right hip, stage 3 Is this a current diagnosis for this admission?: Yes Plan: The dressing was changed a wet to dry dressing with half-strength Dakin's will be commenced to clear the superficial contamination. A wound vac can be applied after the surface of the wound becomes clean.
[2017-06-16] MEDS: SODIUM HYPOCHLORITE 0.25% SOLN 473 ML BOTTLE TP SCH (21:25)
[2017-06-17] MEDS: VANCOMYCIN HCL 1,500 MG in DEXTROSE 5%-WATER 250 ML IV SCH ×4 (03:15→20:53)
[2017-06-17] MEDS: SODIUM HYPOCHLORITE 0.25% SOLN 473 ML BOTTLE TP SCH (05:13)
[2017-06-17] MEDS: PHENAZOPYRIDINE HCL 100 MG TABLET PO SCH ×3 (05:14→21:52)
[2017-06-17] MEDS: ACETAMINOPHEN 325 MG TABLET PO PRN ×3 (05:49→21:52)
[2017-06-17] MEDS: NORMAL SALINE 1000 ML 1,000 ML IV PRN (08:16)
--- NOTE | 2017-06-17 08:48 | PDOC PROGRESS REPORT ---
Subjective Progress Note for:: 06/17/17 Physical Exam Vital Signs: Temp Pulse Resp BP Pulse Ox 98.5 F 83 20 101/67 97 06/17/17 07:35 06/17/17 07:35 06/17/17 07:35 06/17/17 07:35 06/17/17 07:35 Intake & Output 06/16/17 06/17/17 06/18/17 06:59 06:59 06:59 Intake Total 5681 4353 Output Total 2125 4340 Balance 3556 13 Weight 77.8 kg 78.1 kg Additional comments: Sacral decub ulcers , s/p debridements Patient may be discharged when medically optimized. fOLLOW UP prn Results Laboratory Results: 06/16/17 04:35 06/16/17 04:35 06/16/17 04:35 Magnesium 2.2 Impressions: Guidance Fluoroscopy 06/14/17 00:00 IMPRESSION: Please see combined report for performance of procedure and radiologic supervision and interpretation. Interventional Vascular Procedure 06/14/17 00:00 IMPRESSION: Please see combined report for performance of procedure and radiologic supervision and interpretation. PICC Line Insertion 06/14/17 00:00 IMPRESSION: SUCCESSFUL PLACEMENT OF A 5 FR DUAL LUMEN 41 CM PICC IN THE LEFT BASILIC VEIN. Abdomen/Pelvis CT 06/16/17 00:00 IMPRESSION: 7 cm right gluteal region decubitus ulcer along the infra gluteal fold. There is a 2 cm fluid collection along its medial most aspect, inflammation extends superiorly into the deep pelvic ischiorectal fossa fat. 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
[2017-06-17] MEDS: CIPROFLOXACIN HCL 500 MG TABLET PO SCH ×2 (11:23→21:52)
[2017-06-17] MEDS: NORMAL SALINE 10 ML SDV (SCHEDULED) IV SCH ×2 (11:24→21:53)
[2017-06-17] MEDS: COLLAGENASE CLOSTRIDIUM HIST. OINT 30 GM TOP SCH (11:25)
[2017-06-17] MEDS: ENOXAPARIN SODIUM INJ 40 MG/0.4 ML DISP.SYRIN SUBCUT SCH (18:25)
[2017-06-18] MEDS: NORMAL SALINE 1000 ML 1,000 ML IV PRN (00:11)
--- NOTE | 2017-06-18 01:35 | PDOC PROGRESS REPORT ---
Subjective Progress Note for:: 06/16/17 Subjective:: Patient admitted with sepsis due to UTI and sacral ulcer. Status post debridement x 2. Wound culture polymicrobial. Patient that he was going home today. Unfortunately, it was too late for the home antibiotics to be set up. Patient not able to de discharged until Wednesday. Patient is understanding. Patient is otherwise feeling well. Physical Exam Vital Signs: Temp Pulse Resp BP Pulse Ox 99.0 F 99 18 106/61 94 06/16/17 19:32 06/16/17 19:00 06/16/17 16:20 06/16/17 16:20 06/16/17 16:20 Intake & Output 06/15/17 06/16/17 06/17/17 06:59 06:59 06:59 Intake Total 4539 5681 2837 Output Total 4625 2125 1800 Balance -86 3556 1037 Weight 72.3 kg 77.8 kg General appearance: PRESENT: no acute distress, well-developed, well-nourished Head exam: PRESENT: normocephalic Eye exam: PRESENT: EOMI. ABSENT: scleral icterus Ear exam: PRESENT: normal external ear exam Mouth exam: PRESENT: moist Neck exam: ABSENT: carotid bruit, JVD, lymphadenopathy, thyromegaly Respiratory exam: PRESENT: clear to auscultation cee. ABSENT: rales, rhonchi, wheezes Cardiovascular exam: PRESENT: RRR. ABSENT: diastolic murmur, rubs, systolic murmur Pulses: PRESENT: normal dorsalis pedis pul Vascular exam: PRESENT: normal capillary refill GI/Abdominal exam: PRESENT: normal bowel sounds, soft. ABSENT: distended, guarding, mass, organolmegaly, rebound, tenderness Rectal exam: PRESENT: deferred Extremities exam: ABSENT: calf tenderness, clubbing, pedal edema Neurological exam: PRESENT: alert, awake, oriented to person, oriented to place , oriented to time, oriented to situation, CN II-XII grossly intact, other - paraplegic. ABSENT: motor sensory deficit Psychiatric exam: PRESENT: appropriate affect, normal mood. ABSENT: homicidal ideation, suicidal ideation Skin exam: PRESENT: dry, intact, warm, other. ABSENT: cyanosis, rash Results Laboratory Results: 06/16/17 04:35 06/16/17 04:35 06/16/17 06/16/17 06/16/17 04:35 04:35 04:35 WBC 17.5 H RBC 2.74 L Hgb 8.7 L Hct 25.1 L MCV 92 MCH 31.9 MCHC 34.8 RDW 16.2 H Plt Count 461 H Seg Neutrophils % 76.7 Lymphocytes % 11.1 L Monocytes % 7.7 Eosinophils % 4.1 Basophils % 0.4 Absolute Neutrophils 13.4 H Absolute Lymphocytes 1.9 Absolute Monocytes 1.4 Absolute Eosinophils 0.7 H Absolute Basophils 0.1 Sodium 130.6 L Potassium 4.2 Chloride 95 L Carbon Dioxide 25 Anion Gap 11 BUN 8 Creatinine 0.44 L Est GFR ( Amer) > 60 Est GFR (Non-Af Amer) > 60 Glucose 315 H Calcium 7.8 L Magnesium 2.2 Impressions: Guidance Fluoroscopy 06/14/17 00:00 IMPRESSION: Please see combined report for performance of procedure and radiologic supervision and interpretation. Interventional Vascular Procedure 06/14/17 00:00 IMPRESSION: Please see combined report for performance of procedure and radiologic supervision and interpretation. PICC Line Insertion 06/14/17 00:00 IMPRESSION: SUCCESSFUL PLACEMENT OF A 5 FR DUAL LUMEN 41 CM PICC IN THE LEFT BASILIC VEIN. Abdomen/Pelvis CT 06/16/17 00:00 IMPRESSION: 7 cm right gluteal region decubitus ulcer along the infra gluteal fold. There is a 2 cm fluid collection along its medial most aspect, inflammation extends superiorly into the deep pelvic ischiorectal fossa fat. 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 Assessment & Plan - Diagnosis (1) Sepsis Is this a current diagnosis for this admission?: Yes Plan: Possible due to decub ulcer. Patient also with ecoli in urine but may be colonized due to in and out cath. Patient currently on vacomycin and cipro for his wound infection. Patient did spike a temp of 100.6 this afternoon. (2) Abnormal urine finding Is this a current diagnosis for this admission?: Yes Plan: Ecoli in urine patient received 6 days of ceftazidime. Patient may be colonized as this was a low bacterial count however patient is at right for uti considering that he has a neurogenic bladder and has to self cath. (3) DVT prophylaxis Is this a current diagnosis for this admission?: Yes Plan: Lovenox. Held today as patient wound was bleeding and hemoglobin trended down. (4) Hypokalemia Is this a current diagnosis for this admission?: Yes Plan: Resolved. (5) Hypotension Is this a current diagnosis for this admission?: Yes Plan: Labile. Patient asymptomatic. This could be secondary to his spinal cord injury verses infection. Will continue to monitor. (6) Leukocytosis Is this a current diagnosis for this admission?: Yes Plan: Due to infection. Still elevated but stable. Patient clinically improved. (7) Metabolic acidosis Is this a current diagnosis for this admission?: Yes Plan: Due to sepsis now resolved. (8) Paraplegia Is this a current diagnosis for this admission?: No Plan: Continue supportive care. (9) Sacral wound Is this a current diagnosis for this admission?: Yes Plan: Patient status post debridement x 2. No osteo on CT abdomen pelvis. All soft tissue involvement. Continue aggressive would care and antibiotics for a total of 14 days. After discussing with pharmacy, patient will require Q 6 dosing of vancomycin to maintain and adequate level in the blood. PAtient can take cipro for 6 days. The 2 antibotics should treat the MRSA, enterococcus and proteus. Patient has a picc line place. Home antibiotics will not be able to be arranged until Wednesday. - Time Time Spent with patient: 15-24 minutes Medications reviewed and adjusted accordingly: Yes Anticipated discharge: Home Within: within 48 hours - Inpatient Certification Medical Necessity: Need for IV Antibiotics - Patient unable to have IV antibitics arranged in time prior to the . If patient remains stable, plan is for discharge home for 6 more days of antibiotics on Wednesday.
--- NOTE | 2017-06-18 01:51 | PDOC PROGRESS REPORT ---
Subjective Progress Note for:: 06/17/17 Subjective:: Patient admitted with sepsis due to UTI and sacral ulcer. Status post debridement x 2. Wound culture polymicrobial. Patient that he was going home today. Unfortunately, it was too late for the home antibiotics to be set up on Wednesday. Patient feeling well. No more low grade temps. Patient would like to go home on Wednesday if possible. Physical Exam Vital Signs: Temp Pulse Resp BP Pulse Ox 98.2 F 75 16 104/53 L 97 06/17/17 20:15 06/17/17 20:15 06/17/17 20:15 06/17/17 20:15 06/17/17 20:15 Intake & Output 06/16/17 06/17/17 06/18/17 06:59 06:59 06:59 Intake Total 5681 4353 1625 Output Total 2125 4340 2400 Balance 3556 13 -035 Weight 77.8 kg 78.1 kg General appearance: PRESENT: no acute distress, well-developed, well-nourished Head exam: PRESENT: normocephalic Eye exam: PRESENT: EOMI. ABSENT: scleral icterus Mouth exam: PRESENT: moist Neck exam: ABSENT: carotid bruit, JVD, lymphadenopathy, thyromegaly Respiratory exam: PRESENT: clear to auscultation cee. ABSENT: rales, rhonchi, wheezes Cardiovascular exam: PRESENT: RRR. ABSENT: diastolic murmur, rubs, systolic murmur GI/Abdominal exam: PRESENT: normal bowel sounds, soft. ABSENT: distended, guarding, mass, organolmegaly, rebound, tenderness Rectal exam: PRESENT: deferred Extremities exam: PRESENT: full ROM. ABSENT: calf tenderness, clubbing, pedal edema Neurological exam: PRESENT: alert, awake, oriented to person, oriented to place , oriented to time, oriented to situation, CN II-XII grossly intact, other - paraplegic. ABSENT: motor sensory deficit Psychiatric exam: PRESENT: appropriate affect, normal mood. ABSENT: homicidal ideation, suicidal ideation Skin exam: PRESENT: dry, intact, warm. ABSENT: cyanosis, rash Results Laboratory Results: 06/16/17 04:35 06/16/17 04:35 Impressions: Guidance Fluoroscopy 06/14/17 00:00 IMPRESSION: Please see combined report for performance of procedure and radiologic supervision and interpretation. Interventional Vascular Procedure 06/14/17 00:00 IMPRESSION: Please see combined report for performance of procedure and radiologic supervision and interpretation. PICC Line Insertion 06/14/17 00:00 IMPRESSION: SUCCESSFUL PLACEMENT OF A 5 FR DUAL LUMEN 41 CM PICC IN THE LEFT BASILIC VEIN. Abdomen/Pelvis CT 06/16/17 00:00 IMPRESSION: 7 cm right gluteal region decubitus ulcer along the infra gluteal fold. There is a 2 cm fluid collection along its medial most aspect, inflammation extends superiorly into the deep pelvic ischiorectal fossa fat. 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 Assessment & Plan - Diagnosis (1) Sepsis Is this a current diagnosis for this admission?: Yes Plan: Possible due to decub ulcer. Patient also with ecoli in urine but may be colonized due to in and out cath. Patient currently on vacomycin and cipro for his polymicrobial (MRSA, Enteroccocus fecalis D and proteus mirabilis, wound infection. Patient has soft tissue infection therefore 14 days of antibiotics is appropriate. (2) Abnormal urine finding Is this a current diagnosis for this admission?: Yes Plan: Ecoli in urine patient received 6 days of ceftazidime. Patient may be colonized as this was a low bacterial count however patient is at risk for UTI considering that is self caths. (3) DVT prophylaxis Is this a current diagnosis for this admission?: Yes Plan: Lovenox. (4) Hypokalemia Is this a current diagnosis for this admission?: Yes Plan: Resolved. (5) Hypotension Is this a current diagnosis for this admission?: Yes Plan: Labile. Patient asymptomatic. This could be secondary to his spinal cord injury verses infection. Monitor. (6) Leukocytosis Is this a current diagnosis for this admission?: Yes Plan: Due to infection. Still elevated but stable. Patient clinically improved. (7) Metabolic acidosis Is this a current diagnosis for this admission?: Yes Plan: Due to sepsis now resolved. (8) Paraplegia Is this a current diagnosis for this admission?: No Plan: Continue supportive care. Patient states that his father will bring in some straight cath from home bc we do not have the correct size. (9) Sacral wound Is this a current diagnosis for this admission?: Yes Plan: Patient status post debridement x 2. No osteo on CT abdomen pelvis. All soft tissue involvement. Continue aggressive would care and antibiotics for a total of 14 days or 6 more days after today. After discussing with pharmacy, patient will require Q 6 dosing of vancomycin to maintain and adequate level in the blood. This can be taken along with cipro. The 2 antibotics should treat the MRSA, enterococcus and proteus. Patient has a picc line place. Home antibiotics will not be able to be arranged until Wednesday. Surgery will follow PRN. Per the surgical note written today, dressing was changed to wet to dry dressing with half-strength Dakin's in order to clear the superficial contamination. Once the surface of the wound in clean then a wound vac can be applied. They are otherwise ok with patient going home. (10) Hyponatremia Is this a current diagnosis for this admission?: Yes Plan: Patient blood glucose was elevated at the time. Will continue normal saline and monitor. - Time Time Spent with patient: 15-24 minutes Within: within 24 hours - Inpatient Certification Medical Necessity: Need for IV Antibiotics - Patient will need antibiotics on discharge which cannot be arrange until Wednesday. Patient patient stable per on coming provider, then patient may be discharged home.
[2017-06-18] MEDS: SODIUM HYPOCHLORITE 0.25% SOLN 473 ML BOTTLE TP SCH ×2 (02:08→09:45)
[2017-06-18] MEDS: VANCOMYCIN HCL 1,500 MG in DEXTROSE 5%-WATER 250 ML IV SCH ×2 (02:15→09:43)
[2017-06-18] MEDS: NORMAL SALINE 10 ML SDV (AFTER EACH USE) IV PRN (04:04)
[2017-06-18 05:13] LABS: ABSOLUTE EOSINOPHILS # (AUTO) 0.8 10^3/uL (0.0-0.6); ABSOLUTE LYMPHOCYTES (AUTO) 2.3 10^3/uL (0.5-4.7); ABSOLUTE MONOCYTES (AUTO) 1.2 10^3/uL (0.1-1.4); ABSOLUTE NEUT (AUTO) 8.3 10^3/uL (1.7-8.2); BASOPHILS % (AUTO) 0.4 % (0-2); EOSINOPHILS % (AUTO) 6.3 % (0-6); HEMATOCRIT 25.6 % (37.9-51.0); HEMOGLOBIN 8.7 g/dL (13.5-17.0); HGB HCT DIFFERENCE 0.5; LYMPHOCYTES % (AUTO) 18.1 % (13-45); MEAN CORPUSCULAR HEMOGLOBIN 31.6 pg (27.0-33.4); MEAN CORPUSCULAR HGB CONC 34.2 g/dL (32.0-36.0); MEAN CORPUSCULAR VOLUME 92 fl (80-97); MONOCYTES % (AUTO) 9.6 % (3-13); RED BLOOD COUNT 2.77 10^6/uL (4.35-5.55); RED CELL DISTRIBUTION WIDTH 16.2 % (11.5-14.0); SEGMENTED NEUTROPHILS % (AUTO) 65.6 % (42-78); WHITE BLOOD COUNT 12.7 10^3/uL (4.0-10.5)
[2017-06-18 05:30] LABS: ANION GAP 11 (5-19); BLOOD UREA NITROGEN 7 mg/dL (7-20); CALCIUM 8.5 mg/dL (8.4-10.2); CARBON DIOXIDE 27 mmol/L (22-30); CHLORIDE 102 mmol/L (98-107); CREATININE RESULT 0.48 mg/dL (0.52-1.25); GLUCOSE 102 mg/dL (75-110); POTASSIUM 4.3 mmol/L (3.6-5.0); SODIUM 140.3 mmol/L (137-145)
[2017-06-18] MEDS: CIPROFLOXACIN HCL 500 MG TABLET PO SCH (09:44)
[2017-06-18] MEDS: NORMAL SALINE 10 ML SDV (SCHEDULED) IV SCH (09:44)
--- NOTE | 2017-06-18 11:32 | PDOC DISCHARGE SUMMARY ---
General - Admit/Disc Date/PCP Admission Date/Primary Care Provider: 06/09/17 13:30 JOCELIN Brothers [place], Discharge Date: 06/18/17 - Discharge Diagnosis (1) Abnormal urine finding Is this a current diagnosis for this admission?: Yes (2) DVT prophylaxis Is this a current diagnosis for this admission?: Yes (3) Hypokalemia Is this a current diagnosis for this admission?: Yes (4) Hypotension Is this a current diagnosis for this admission?: Yes (6) Leukocytosis Is this a current diagnosis for this admission?: Yes (7) Metabolic acidosis Is this a current diagnosis for this admission?: Yes (8) Paraplegia Is this a current diagnosis for this admission?: No (9) Sacral wound Is this a current diagnosis for this admission?: Yes (10) Sepsis Is this a current diagnosis for this admission?: Yes (11) Bladder mass Is this a current diagnosis for this admission?: Yes - Additional Information Resuscitation Status: Full Code Discharge Diet: Regular Discharge Activity: Other Home Medications: Buprenorphine HCl/Naloxone HCl [Suboxone 8 mg-2 mg Sl Film] 2 film SL DAILY Ciprofloxacin HCl 500 mg PO BID 6 Days #12 tablet 06/18/17 History of Present Illness History of Present Illness: MEKHI DEUTSCH is a 36 year old male with history of paraplegia since age 15 who presents to the ED after experiencing 3 day history of subjective fevers, weakness, and chills. He has a 1.5 month history of sacral decubitus. States that this past Wednesday he began feeling feverish, had chills, and less energy level. Also felt to be increasingly stuffy. Denies lightheadness, dizziness, CP , SOB, cough, vomiting. He notes mild nausea. PO intake has been good. Notes that his mother may have had URI like symptoms at home this past weekend. In ED today had sacral decub debrided and was cleaned and packed. Was feeling well but noted to have systolic blood pressures in 90s, baseline around 120s. Received 4 liters of IVF however pressures were still lower than normal. Patient was sarkar-cultured and received IV Levaquin. Upon discussion with ED, he was also given 1X dose of Vancomycin. patient will be admitted as observation. Hospital Course Hospital Course: The patient presented with evidence of sepsis. This was felt to be secondary to the decubitus ulcer. The patient had E. coli in his urine, however, this was felt to be more likely contamination due to the fact that the patient must self catheterize. The patient's sacral wound infection is polymicrobial showing growth of MRSA, enterococcus faecalis D and Proteus mirabilis. The patient will receive a total of 14 days of antibiotics with vancomycin and ciprofloxacin. He will complete 6 more days after discharge. The patient also received 6 days of ceftazidime this hospitalization for the E. coli in his urine. The patient was noted to be borderline hypotensive which is likely secondary to his spinal cord injury. Potassium was low on admission and was replaced. The patient was noted to have a stable but mild leukocytosis during this hospitalization. He presented with a metabolic acidosis that is now resolved. The sacral wound was debrided 2 during this hospitalization. He had a CT of the abdomen and pelvis that did not demonstrate osteomyelitis. The patient received wound care and will follow up CHRISTOPHER at the wound clinic. The patient will be discharged with a PICC line in place so that he can continue the vancomycin. Dressings to the wounds have been changed to wet-to-dry with half strength Dakin's. Patient should follow-up with the surgery clinic to also have a wound VAC applied, eventually. The CT of the abdomen and pelvis incidentally noted a bladder mass. Therefore, we will need to get the patient scheduled for a urology appointment CHRISTOPHER. This can be arranged outpatient. Physical Exam Vital Signs: Temp Pulse Resp BP Pulse Ox 98.4 F 75 16 106/65 100 06/18/17 08:02 06/18/17 08:02 06/18/17 08:02 06/18/17 08:02 06/18/17 08:02 Intake & Output 06/17/17 06/18/17 06/19/17 06:59 06:59 06:59 Intake Total 4353 3033 Output Total 4340 4075 Balance 13 -1042 Weight 78.1 kg 76 kg Additional comments: The patient is a white male. He is not in any distress. He appears to be his stated age. His cognition and mentation are normal. Cranial nerves II through XII are intact. The patient's lungs are clear to auscultation bilaterally. His cardiac exam is regular without murmurs, gallops or rubs. The abdomen is soft and flat. Bowel sounds are noted in the lower quadrants. He does not have any guarding or rebound present. The lower extremities are unremarkable. He does have a healing ulcer on the right heel. The sacral wound does have granulation tissue present. At the current time he does not have any purulent drainage. Results Laboratory Results: 06/18/17 04:10 06/18/17 04:10 06/18/17 06/18/17 04:10 04:10 WBC 12.7 H RBC 2.77 L Hgb 8.7 L Hct 25.6 L MCV 92 MCH 31.6 MCHC 34.2 RDW 16.2 H Plt Count 565 H Seg Neutrophils % 65.6 Lymphocytes % 18.1 Monocytes % 9.6 Eosinophils % 6.3 H Basophils % 0.4 Absolute Neutrophils 8.3 H Absolute Lymphocytes 2.3 Absolute Monocytes 1.2 Absolute Eosinophils 0.8 H Absolute Basophils 0.0 Sodium 140.3 Potassium 4.3 Chloride 102 Carbon Dioxide 27 Anion Gap 11 BUN 7 Creatinine 0.48 L Est GFR ( Amer) > 60 Est GFR (Non-Af Amer) > 60 Glucose 102 Calcium 8.5 Impressions: Guidance Fluoroscopy 06/14/17 00:00 IMPRESSION: Please see combined report for performance of procedure and radiologic supervision and interpretation. Interventional Vascular Procedure 06/14/17 00:00 IMPRESSION: Please see combined report for performance of procedure and radiologic supervision and interpretation. PICC Line Insertion 06/14/17 00:00 IMPRESSION: SUCCESSFUL PLACEMENT OF A 5 FR DUAL LUMEN 41 CM PICC IN THE LEFT BASILIC VEIN. Abdomen/Pelvis CT 06/16/17 00:00 IMPRESSION: 7 cm right gluteal region decubitus ulcer along the infra gluteal fold. There is a 2 cm fluid collection along its medial most aspect, inflammation extends superiorly into the deep pelvic ischiorectal fossa fat. 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 Plan Discharge Plan: 1. Follow-up with the wound clinic next available appointment. 2. Follow-up with primary foster care therapist in 1 week 3. Follow-up with the surgery clinic in 1-2 weeks. 4. Arrange CHRISTOPHER appointment with urology for abnormal finding on CT abdomen and pelvis with worrisome bladder mass. Time Spent: Greater than 30 Minutes
[2017-06-18 14:25] VITALS: BP 102/55
[2017-06-18] MEDS ORDERED: VANCOMYCIN HCL 1,500 MG in DEXTROSE 5%-WATER 250 ML IV SCH (22:00)
== END 2017-06-18 16:00 | disposition home or self-care (01) | DRG 854 ==
LOC: ER 11:23 → INTOOBSV 18:38 → EH 18:38 → 3S 20:38 → OBSVTOIN 06-09 13:30
PROVIDERS: ADMIT Hospitalist; ATTEND Hospitalist
PROC: 0JBL0ZZ Excision of Right Upper Leg Subcutaneous Tissue and Fascia, Open Approach (ICD-10-PCS; 2017-06-08)
PROC: 02HV33Z Insertion of Infusion Device into Superior Vena Cava, Percutaneous Approach (ICD-10-PCS; 2017-06-14)
PROC: 02HV33Z Insertion of Infusion Device into Superior Vena Cava, Percutaneous Approach (ICD-10-PCS; 2017-06-14)
PROC: B548ZZA Ultrasonography of Superior Vena Cava, Guidance (ICD-10-PCS; 2017-06-14)
PROC: 0JBL0ZZ Excision of Right Upper Leg Subcutaneous Tissue and Fascia, Open Approach (ICD-10-PCS; principal; 2017-06-15 08:00)
DX: A41.9 Sepsis, unspecified organism (principal); E87.2 Acidosis; G82.20 Paraplegia, unspecified; T14.8XXS Other injury of unspecified body region, sequela; L89.219 Pressure ulcer of right hip, unspecified stage; L89.159 Pressure ulcer of sacral region, unspecified stage; B95.62 Methicillin resistant Staphylococcus aureus infection as the cause of diseases classified elsewhere; B96.4 Proteus (mirabilis) (morganii) as the cause of diseases classified elsewhere; B95.2 Enterococcus as the cause of diseases classified elsewhere; E87.6 Hypokalemia; N32.9 Bladder disorder, unspecified; Z79.899 Other long term (current) drug therapy; F17.200 Nicotine dependence, unspecified, uncomplicated
CPT/HCPCS: 36415; 36569; 400; 51701; 74177; 76937; 77001; 80048; 80053; 80202; 81001; 82565; 82803; 83605; 83735; 85025; 85027; 87040; 87070; 87077; 87086; 87088; 87186; 87205; 96361; 96365; 96375; 99284; A6266; G0378; J0696; J0713; J1642; J1650; J1956; J2250; J2270; J2704; J3010; J3370; J3475; J3480; J3490; J7030; J7060; S0119

== ENCOUNTER → 2018-02-01 | Day surgery (SDC) | payer MEDICARE, MEDICAID ==
[2018-01-25 08:35] VITALS: BP 110/62
[2018-01-25 09:26] LABS: HEMATOCRIT 38.4 % (37.9-51.0); HEMOGLOBIN 12.7 g/dL (13.5-17.0); MEAN CORPUSCULAR HEMOGLOBIN 29.4 pg (27.0-33.4); MEAN CORPUSCULAR HGB CONC 32.9 g/dL (32.0-36.0); MEAN CORPUSCULAR VOLUME 89 fl (80-97); PLATELET COUNT 328 10^3/uL (150-450); RED BLOOD COUNT 4.31 10^6/uL (4.35-5.55); RED CELL DISTRIBUTION WIDTH 16.7 % (11.5-14.0); WHITE BLOOD COUNT 7.3 10^3/uL (4.0-10.5)
[2018-01-25 09:45] LABS: ANION GAP 11 (5-19); BLOOD UREA NITROGEN 16 mg/dL (7-20); CALCIUM 9.1 mg/dL (8.4-10.2); CARBON DIOXIDE 27 mmol/L (22-30); CHLORIDE 106 mmol/L (98-107); GLUCOSE 98 mg/dL (75-110); POTASSIUM 4.5 mmol/L (3.6-5.0)
[~2018-02-01] MED LIST: CEFAZOLIN 1 GM/D5W RTU 1 GM/50 ML RTUPB IV PRN; LACTATED RINGERS 1000 ML IV PRN; LIDOCAINE 0.5% INJ-PF (5 MG/ML) 50 ML SDV SUBCUT PRN
== END ==
LOC: OROUT 09:17
PROVIDERS: ATTEND Surgery
DX: Z01.818 Encounter for other preprocedural examination (principal)
CPT/HCPCS: 36415; 80048; 85027; 87070; J0690

== ENCOUNTER → 2018-05-13 | Outpatient (CLI) | payer MEDICARE, MEDICAID ==
[2018-05-13 11:30] LABS: ABSOLUTE EOSINOPHILS # (AUTO) 0.2 10^3/uL (0.0-0.6); ABSOLUTE LYMPHOCYTES (AUTO) 2.1 10^3/uL (0.5-4.7); ABSOLUTE NEUT (AUTO) 4.8 10^3/uL (1.7-8.2); BASOPHILS % (AUTO) 0.3 % (0-2); EOSINOPHILS % (AUTO) 2.9 % (0-6); HEMATOCRIT 37.7 % (37.9-51.0); HEMOGLOBIN 12.6 g/dL (13.5-17.0); LYMPHOCYTES % (AUTO) 26.3 % (13-45); MEAN CORPUSCULAR HEMOGLOBIN 28.9 pg (27.0-33.4); MEAN CORPUSCULAR HGB CONC 33.5 g/dL (32.0-36.0); MEAN CORPUSCULAR VOLUME 86 fl (80-97); MONOCYTES % (AUTO) 11.6 % (3-13); PLATELET COUNT 451 10^3/uL (150-450); RED BLOOD COUNT 4.37 10^6/uL (4.35-5.55); RED CELL DISTRIBUTION WIDTH 16.2 % (11.5-14.0); SEGMENTED NEUTROPHILS % (AUTO) 58.9 % (42-78); TOTAL CELLS COUNTED % (AUTO) 100 %; WHITE BLOOD COUNT 8.2 10^3/uL (4.0-10.5)
--- NOTE | 2018-05-13 11:54 | RADIOLOGY REPORT (SQ) ---
EXAM DESCRIPTION: PELVIS AP COMPLETED DATE/TIME: 05/13/2018 11:34 am REASON FOR STUDY: PRESSURE ULCER RIGHT BUTTOCK STAGE 4 L89.314 PRESSURE ULCER OF RIGHT BUTTOCK, STA GE 4 COMPARISON: X-ray dated 04/27/2016. CT dated 06/16/2017. NUMBER OF VIEWS: One view TECHNIQUE: AP Pelvis LIMITATIONS: None. FINDINGS: MINERALIZATION: Normal. HIPS: Stable hardware in the left hip. No acute fracture or dislocation. No worrisome bone lesions. PELVIS AND SACRUM: No acute fracture or dislocation. No worrisome bone lesions. PUBIS AND ISCHIUM: Stable chronic deformity of the right ischial tuberosity. LOWER LUMBAR SPINE: Hardware present. No acute findings. SOFT TISSUES: No findings. OTHER: No other significant finding. IMPRESSION: STABLE CHRONIC DEFORMITY OF THE RIGHT ISCHIAL TUBEROSITY. NO ACUTE FINDINGS. TECHNICAL DOCUMENTATION: JOB ID: [id number] [employer]- All Rights Reserved Reading location - IP/workstation name: [email or web address]
[2018-05-13 11:57] LABS: ALANINE AMINOTRANSFERASE 24 U/L (21-72); ALBUMIN 3.8 g/dL (3.5-5.0); ALKALINE PHOSPHATASE 118 U/L (38-126); ANION GAP 8 (5-19); ASPARTATE AMINO TRANSFERASE 25 U/L (17-59); BILIRUBIN,DIRECT 0.2 mg/dL (0.0-0.4); BILIRUBIN,TOTAL 0.4 mg/dL (0.2-1.3); BLOOD UREA NITROGEN 10 mg/dL (7-20); C-REACTIVE PROTEIN 63.2 mg/L (<10.0); CALCIUM 9.4 mg/dL (8.4-10.2); CARBON DIOXIDE 31 mmol/L (22-30); CHLORIDE 100 mmol/L (98-107); GLUCOSE 95 mg/dL (75-110); POTASSIUM 4.7 mmol/L (3.6-5.0); SODIUM 139.3 mmol/L (137-145); TOTAL PROTEIN 8.2 g/dL (6.3-8.2)
[2018-05-13 12:09] LABS: ERYTHROCYTE SEDIMENTATION RATE 95 mm/hr (0-15)
== END ==
LOC: WC 10:44
PROVIDERS: ATTEND Surgery
DX: L89.314 Pressure ulcer of right buttock, stage 4 (principal)
CPT/HCPCS: 36415; 72170; 80053; 85025; 85652; 86140

== ENCOUNTER 2018-06-03 10:14 | Emergency (ER) | payer MEDICARE, MEDICAID ==
[2018-06-03] MEDS ORDERED: RINGERS SOLUTION,LACTATED 1,000 ML IV ONE (10:33)
[2018-06-03] MEDS ORDERED: ONDANSETRON HCL INJ/PF 4 MG/2 ML SDV IV ONE (10:34)
[2018-06-03] MEDS ORDERED: LORAZEPAM INJ 2 MG/1 ML VIAL IV ONE (10:34)
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
[2018-06-03] MEDS ORDERED: CLONIDINE 0.1 MG/24 HR PATCH.TDWK TD ONE (11:27)
[2018-06-03 14:37] VITALS: BP 130/74
== END 2018-06-03 14:48 | disposition home or self-care (01) ==
LOC: ER 10:14
DX: F11.23 Opioid dependence with withdrawal (principal); F41.9 Anxiety disorder, unspecified; M79.10 Myalgia, unspecified site; R11.0 Nausea; R51 Headache; R68.83 Chills (without fever); F17.210 Nicotine dependence, cigarettes, uncomplicated; Z71.6 Tobacco abuse counseling; R00.0 Tachycardia, unspecified
CPT/HCPCS: 99406; 99285; 96361; 96374; 96375; C1758; J2060; J2405; J7120; J3490

== ENCOUNTER 2019-02-04 22:00 | Emergency (ER) | payer MEDICARE, MEDICAID ==
--- NOTE | 2019-02-05 00:25 | ER Document Report ---
ED Medical Screen (RME) - General Chief Complaint: Abscess Stated Complaint: ABSCESS Time Seen by Provider: 02/05/19 00:21 Primary Care Provider: SHARLA DOAN MD [Primary Care Provider] - Follow up as needed Mode of Arrival: Wheelchair Information source: Patient Notes: Patient is a 38-year-old male presenting to the emergency department with complaints of abscesses to his buttocks. Patient reports history of sepsis with multiple times which required hospitalization and IV vancomycin due to his abscesses. Patient denies any fever chills but is tachycardic on arrival to 120. Manual heart rate is 130. Patient reports history of IV drug abuse in the remote past. Exam: Unable to visualize abscessed areas due to location in triage. Tachycardic. Answers all questions appropriately, no acute distress noted. I have greeted and performed a rapid initial assessment of this patient. A comprehensive ED assessment and evaluation of the patient, analysis of test results and completion of the medical decision making process will be conducted by additional ED providers. I have specifically instructed the patient or family members with the patient to immediately return to any nursing staff should anything change in the patient's condition or with their chief complaint. This medical record was dictated with voice recognizing software. There may be grammatical, syntax errors that are unintended. TRAVEL OUTSIDE OF THE [place] IN LAST 30 DAYS: No - Related Data Allergies/Adverse Reactions: No Known Allergies Allergy (Verified 06/08/17 11:27) Past Medical History - Past Medical History Cardiac Medical History: Denies: Hx Coronary Artery Disease, Hx Heart Attack, Hx Hypertension Pulmonary Medical History: Denies: Hx Asthma, Hx Bronchitis, Hx COPD, Hx Pneumonia Neurological Medical History: Denies: Hx Cerebrovascular Accident, Hx Seizures Renal/ Medical History: Denies: Hx Peritoneal Dialysis GI Medical History: Reports: Hx Hepatitis - C Musculoskeltal Medical History: Denies Hx Arthritis Psychiatric Medical History: Denies: Hx Depression Traumatic Medical History: Reports: Hx Spine Fracture - L-1996, RESULTANT SPASTIC PARAPLEGIA & URINARY RETENTION. Infectious Medical History: Reports: Hx Hepatitis - C Past Surgical History: Reports: Hx Orthopedic Surgery - femur fx, L1 back fx - Immunizations Hx Diphtheria, Pertussis, Tetanus Vaccination: No History of Influenza Vaccine for 04/2017 - 09/2017 Season: Yes Influenza Administration Date for 04/2017 - 09/2017 Season: 04/25/17 Physical Exam - Vital signs Vitals: Temp Pulse Resp BP Pulse Ox 97.9 F 120 H 18 121/73 100 02/04/19 22:27 02/04/19 22:27 02/04/19 22:27 02/04/19 22:27 02/04/19 22:27 Course - Vital Signs Vital signs: Temp Pulse Resp BP Pulse Ox 97.9 F 120 H 18 121/73 100 02/04/19 22:27 02/04/19 22:27 02/04/19 22:27 02/04/19 22:27 02/04/19 22:27 Doctor's Discharge - Discharge Referrals: SHARLA DOAN MD [Primary Care Provider] - Follow up as needed
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
[2019-02-05] MEDS ORDERED: NORMAL SALINE 1000 ML 1,000 ML IV PRN (01:34)
[2019-02-05] MEDS ORDERED: LORAZEPAM 1 MG TABLET PO ONE (02:07)
[2019-02-05 03:41] VITALS: BP 111/82
== END 2019-02-05 03:44 | disposition home or self-care (01) ==
LOC: ER 22:00
DX: L98.492 Non-pressure chronic ulcer of skin of other sites with fat layer exposed (principal)
CPT/HCPCS: 99282; 36415; 87040; A9270

== ENCOUNTER 2019-03-14 21:37 | Emergency (ER) | payer MEDICARE, MEDICAID ==
[2019-03-15] MEDS ORDERED: OXYCODONE-ACETAMINOPHEN 5-325 MG TABLET PO ONE (00:49)
[2019-03-15] MEDS ORDERED: LIDOCAINE 1% INJ-PF (10 MG/ML) 30 ML SDV NEB ONE (00:55)
[2019-03-15] MEDS ORDERED: CEFTRIAXONE INJ 1000 MG VIAL IM ONE (00:55)
--- NOTE | 2019-03-15 00:56 | ER Document Report ---
ED General - General Chief Complaint: Flank Pain Stated Complaint: HEADACHES Time Seen by Provider: 03/15/19 00:37 Primary Care Provider: SHARLA DOAN MD [NO LOCAL MD] - Follow up in 3-5 days TRAVEL OUTSIDE OF THE [place] IN LAST 30 DAYS: No - HPI Notes: Patient is a 38-year-old male that presents to the emergency department for chief complaint of right flank pain. Patient states the achy pain in his right flank started 3 days ago. Initially it was mild throbbing and now has become more sharp and constant. 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 Was on Keflex on 02/27/2019. Patient states he did not complete this course of antibiotics because his symptoms had completely resolved. He did take 2 doses of the leftover antibiotic a few days ago. Patient denies any associated fever, chills, nausea or vomiting. He states the pain wraps from his right flank into his right groin. He denies history of kidney stones in the past and states this feels identical to his previous presentation. He does have an appointment with urology which was recommended for follow-up from his last visit, this is not until the beginning of March. Past Medical History: Hepatitis C, spastic paraplegia Past Surgical History: L1 fracture repair Social History: Reviewed in chart Family History: Reviewed and noncontributory for presenting illness Allergies: Reviewed, see documented allergy list. REVIEW OF SYSTEMS: CONSTITUTIONAL : No fever No chills No diaphoresis No recent illness EENT: No vision changes No congestion No sore throat CARDIOVASCULAR: No chest pain No palpitations RESPIRATORY: No shortness of breath No cough No difficulty breathing GASTROINTESTINAL: Right flank pain No abdominal pain No nausea No vomiting No diarrhea GENITOURINARY: No dysuria No hematuria No difficulty urinating MUSCULOSKELETAL: No back pain No leg pain No arm pain SKIN: No rashes No lesions LYMPHATIC: No swollen, enlarged glands. NEUROLOGICAL: No lightheadedness No headache No weakness No paresthesias PSYCHIATRIC: No anxiety No depression PHYSICAL EXAMINATION: Vital signs reviewed, nursing noted reviewed. GENERAL: Well-appearing, well-nourished and in no acute distress. HEAD: Atraumatic, normocephalic. EYES: Eyes appear normal, extraocular movements intact, sclera anicteric, conjunctiva are normal. ENT: nares patent, oropharynx clear without exudates. Moist mucous membranes. NECK: Normal range of motion, supple without lymphadenopathy LUNGS: Breath sounds clear to auscultation bilaterally and equal. No wheezes rales or rhonchi. HEART: Regular rate and rhythm without murmurs ABDOMEN: Right CVA tenderness, soft, nontender, normoactive bowel sounds. No rebound, guarding, or rigidity. No masses appreciated. EXTREMITIES: Nontender, good range of motion, no pitting or edema. NEUROLOGICAL: Alert and oriented x4. Cranial nerves II through XII intact. PSYCH: Normal mood, normal affect. SKIN: Warm, Dry, normal turgor, no rashes or lesions noted on exposed skin - Related Data Allergies/Adverse Reactions: No Known Allergies Allergy (Verified 02/27/19 18:45) Past Medical History - Social History Smoking Status: Never Smoker Family History: Reviewed & Not Pertinent - Past Medical History Cardiac Medical History: Denies: Hx Coronary Artery Disease, Hx Heart Attack, Hx Hypertension Pulmonary Medical History: Denies: Hx Asthma, Hx Bronchitis, Hx COPD, Hx Pneumonia Neurological Medical History: Denies: Hx Cerebrovascular Accident, Hx Seizures Renal/ Medical History: Denies: Hx Peritoneal Dialysis GI Medical History: Reports: Hx Hepatitis - C Musculoskeletal Medical History: Denies Hx Arthritis Psychiatric Medical History: Denies: Hx Depression Traumatic Medical History: Reports: Hx Spine Fracture - L1996, RESULTANT SPASTIC PARAPLEGIA & URINARY RETENTION. Infectious Medical History: Reports: Hx Hepatitis - C Past Surgical History: Reports: Hx Orthopedic Surgery - femur fx, L1 back fx - Immunizations Hx Diphtheria, Pertussis, Tetanus Vaccination: Yes Hx Pneumococcal Vaccination: 09/01/13 Physical Exam - Vital signs Vitals: Temp Pulse Resp BP Pulse Ox 98.6 F 97 18 118/68 96 03/14/19 22:23 03/14/19 22:23 03/14/19 22:23 03/14/19 22:23 03/14/19 22:23 Course - Re-evaluation Re-evalutation: 03/15/19 00:53 Vitals reviewed. Nursing notes reviewed. Patient is alert and nontoxic in appearance. He is afebrile with no systemic symptoms. Patient chart was reviewed and shows group B hemolytic strep infection on his urine culture. He did not complete his course of antibiotics and likely only partially treated his urinary tract infection. Symptoms currently are consistent with early pyelo nephritis. Patient counseled on the importance of completing antibiotics as prescribed. He will be given Percocet for pain in the emergency room. Repeat urine and urine culture have been ordered. 03/15/19 01:42 Patient reevaluated and is still well-appearing. Urinalysis looks comparably worse than his previous. He is still not having systemic symptoms. Patient will be given a dose of Rocephin in the emergency room and will be started on Levaquin to cover for pyelonephritis. He will keep his appointment with urology at the beginning of March for follow-up. He will return for new or worsening symptoms including fevers, vomiting or continued pain. Patient in agreement with this plan of care and stable at discharge. Laboratory 03/15/19 01:05 Urine Color YELLOW Urine Appearance CLEAR Urine pH 7.0 Ur Specific [place] 1.013 Urine Protein 30 H Urine Glucose (UA) NEGATIVE Urine Ketones NEGATIVE Urine Blood MODERATE H Urine Nitrite NEGATIVE Urine Bilirubin NEGATIVE Urine Urobilinogen 2.0 H Ur Leukocyte Esterase LARGE H Urine WBC (Auto) 31 Urine RBC (Auto) 6 Urine Bacteria (Auto) 1+ Squamous Epi Cells Auto 1 Urine Mucus (Auto) RARE Urine Ascorbic Acid NEGATIVE - Vital Signs Vital signs: Temp Pulse Resp BP Pulse Ox 98.6 F 97 18 118/68 96 03/14/19 22:23 03/14/19 22:23 03/14/19 22:23 03/14/19 22:23 03/14/19 22:23 - Laboratory Laboratory results interpreted by me: 03/15/19 01:05 Urine Protein 30 H Urine Blood MODERATE H Urine Urobilinogen 2.0 H Ur Leukocyte Esterase LARGE H Discharge - Discharge Clinical Impression: Pyelonephritis Condition: Stable Disposition: HOME, SELF-CARE Instructions: Levofloxacin, Pyelonephritis (OM) Additional Instructions: Please return to the emergency department if you have any worsening, or concern of your symptoms. Please return to the emergency department if you develop chest pain, difficulty breathing, severe abdominal pain, or ongoing vomiting. Please follow-up with your primary care physician in 2-3 days and any other recommended physicians. If prescribed, take all medications as directed. If you have any questions or concerns do not hesitate to return the emergency department for evaluation. Keep your appointment with urology at the beginning of March for follow up Prescriptions: Levofloxacin [Levaquin 750 mg Tablet] 750 mg PO DAILY #5 tablet Referrals: SHARLA DOAN MD [NO LOCAL MD] - Follow up in 3-5 days
[2019-03-15] MEDS ORDERED: LEVOFLOXACIN 750 MG TABLET PO ONE (01:02)
[2019-03-15 01:37] LABS: APPEARANCE,URINE CLEAR; BILIRUBIN,URINE NEGATIVE (NEGATIVE); COLOR,URINE YELLOW; GLUCOSE, URINE NEGATIVE (NEGATIVE); KETONES,URINE NEGATIVE (NEGATIVE); LEUKOCYTE ESTERASE,URINE LARGE (NEGATIVE); NITRITE,URINE NEGATIVE (NEGATIVE); PROTEIN,URINE 30 mg/dL (NEGATIVE); URINE SPECIFIC GRAVITY 1.013
[2019-03-15 02:19] VITALS: BP 111/71
== END 2019-03-15 02:29 | disposition home or self-care (01) ==
LOC: ER 21:37
DX: N12 Tubulo-interstitial nephritis, not specified as acute or chronic (principal); T36.1X6A Underdosing of cephalosporins and other beta-lactam antibiotics, initial encounter; Z91.128 Patient's intentional underdosing of medication regimen for other reason; Z91.14 Patient's other noncompliance with medication regimen
CPT/HCPCS: 87086; 87088; 81001; J3490; A9270 ×2; J0696; 87186; 96374; 96375; 99284

== ENCOUNTER 2019-08-09 20:43 | Emergency (ER) | payer MEDICARE, MEDICAID ==
[2019-08-09] MEDS ORDERED: KETOROLAC TROMETHAMINE INJ/PF 30 MG/1 ML SDV IV ONE (21:01)
--- NOTE | 2019-08-09 21:03 | ER Document Report ---
ED Medical Screen (RME) - General Chief Complaint: Flank Pain Stated Complaint: URINATING BLOOD Time Seen by Provider: 08/09/19 20:58 Notes: Patient is a 38-year-old male who presents to the emergency department with a chief complaint of bilateral flank pain with mainly the pain on the right side. He has had his pain since 11:00 last night. He also states that he has been having some hematuria. Exam: CVA tenderness on right side. I have greeted and performed a rapid initial assessment of this patient. A comprehensive ED assessment and evaluation of the patient, analysis of test results and completion of medical decision making process will be conducted by an additional ED providers. TRAVEL OUTSIDE OF THE [place] IN LAST 30 DAYS: No - Related Data Allergies/Adverse Reactions: No Known Allergies Allergy (Verified 02/27/19 18:45) Past Medical History - Past Medical History Cardiac Medical History: Denies: Hx Coronary Artery Disease, Hx Heart Attack, Hx Hypertension Pulmonary Medical History: Denies: Hx Asthma, Hx Bronchitis, Hx COPD, Hx Pneumonia Neurological Medical History: Denies: Hx Cerebrovascular Accident, Hx Seizures Renal/ Medical History: Denies: Hx Peritoneal Dialysis GI Medical History: Reports: Hx Hepatitis - C Musculoskeltal Medical History: Denies Hx Arthritis Psychiatric Medical History: Denies: Hx Depression Traumatic Medical History: Reports: Hx Spine Fracture - 1996, RESULTANT SPASTIC PARAPLEGIA & URINARY RETENTION. Infectious Medical History: Reports: Hx Hepatitis - C Past Surgical History: Reports: Hx Orthopedic Surgery - femur fx, L1 back fx - Immunizations Hx Diphtheria, Pertussis, Tetanus Vaccination: Yes Physical Exam - Vital signs Vitals: Temp Pulse Resp BP Pulse Ox 97.9 F 109 H 16 101/64 99 08/09/19 20:49 08/09/19 20:49 08/09/19 20:49 08/09/19 20:49 08/09/19 20:49 Course - Vital Signs Vital signs: Temp Pulse Resp BP Pulse Ox 97.9 F 109 H 16 101/64 99 08/09/19 20:49 08/09/19 20:49 08/09/19 20:49 08/09/19 20:49 08/09/19 20:49
[2019-08-09 22:12] LABS: ABSOLUTE BASOPHILS # (AUTO) 0.1 10^3/uL (0.0-0.2); ABSOLUTE LYMPHOCYTES (AUTO) 1.7 10^3/uL (0.5-4.7); ABSOLUTE MONOCYTES (AUTO) 1.2 10^3/uL (0.1-1.4); ABSOLUTE NEUT (AUTO) 13.5 10^3/uL (1.7-8.2); BASOPHILS % (AUTO) 0.3 % (0-2); EOSINOPHILS % (AUTO) 0.2 % (0-6); HEMATOCRIT 38.5 % (37.9-51.0); HEMOGLOBIN 12.6 g/dL (13.5-17.0); LYMPHOCYTES % (AUTO) 10.3 % (13-45); MEAN CORPUSCULAR HEMOGLOBIN 27.3 pg (27.0-33.4); MEAN CORPUSCULAR HGB CONC 32.8 g/dL (32.0-36.0); MEAN CORPUSCULAR VOLUME 83 fl (80-97); MONOCYTES % (AUTO) 7.4 % (3-13); PLATELET COUNT 561 10^3/uL (150-450); RED BLOOD COUNT 4.62 10^6/uL (4.35-5.55); RED CELL DISTRIBUTION WIDTH 17.3 % (11.5-14.0); SEGMENTED NEUTROPHILS % (AUTO) 81.8 % (42-78); TOTAL CELLS COUNTED % (AUTO) 100 %; WHITE BLOOD COUNT 16.5 10^3/uL (4.0-10.5)
[2019-08-09 22:19] LABS: ALBUMIN 3.8 g/dL (3.5-5.0); ALKALINE PHOSPHATASE 140 U/L (38-126); ANION GAP 17 (5-19); ASPARTATE AMINO TRANSFERASE 28 U/L (17-59); BILIRUBIN,DIRECT 0.4 mg/dL (0.0-0.4); BILIRUBIN,TOTAL 0.4 mg/dL (0.2-1.3); BLOOD UREA NITROGEN 9 mg/dL (7-20); CALCIUM 9.3 mg/dL (8.4-10.2); CARBON DIOXIDE 23 mmol/L (22-30); CHLORIDE 98 mmol/L (98-107); GLUCOSE 99 mg/dL (75-110); POTASSIUM 3.6 mmol/L (3.6-5.0)
[2019-08-09 22:51] LABS: APPEARANCE,URINE CLOUDY; BILIRUBIN,URINE NEGATIVE (NEGATIVE); COLOR,URINE RED; GLUCOSE, URINE NEGATIVE (NEGATIVE); KETONES,URINE NEGATIVE (NEGATIVE); LEUKOCYTE ESTERASE,URINE MODERATE (NEGATIVE); NITRITE,URINE NEGATIVE (NEGATIVE); PROTEIN,URINE 100 mg/dL (NEGATIVE); URINE SPECIFIC GRAVITY 1.013; UROBILINOGEN,URINE NEGATIVE mg/dL (<2.0)
[2019-08-09] MEDS ORDERED: KETOROLAC TROMETHAMINE INJ/PF 30 MG/1 ML SDV ONE (23:12)
[2019-08-10] MEDS ORDERED: CEFTRIAXONE 1 GM/D5W RTU 1 GM/50 ML RTUPB IV ONE (01:14)
[2019-08-10] MEDS ORDERED: NORMAL SALINE 1000 ML 1,000 ML IV ONE (01:18)
--- NOTE | 2019-08-10 01:24 | ER Document Report ---
ED GI/ - General Chief Complaint: Flank Pain Stated Complaint: URINATING BLOOD Time Seen by Provider: 08/09/19 20:58 Mode of Arrival: Wheelchair Information source: Patient Notes: 38-year-old male presented to ED for complaint of bilateral flank pain mainly on the right side. He states his pain is been since 11 PM last night. He states she is also been having bloody urine. Patient does have paralysis due to a spinal fracture and surgery. He does use self cathing due to urinary retention from the spinal surgery. Patient is alert oriented respirations regular nonlabored speaking in full sentences. He states he has been having hot and cold chills all day. He states he has not taken his temperature he does not know if he has had a fever. TRAVEL OUTSIDE OF THE [place] IN LAST 30 DAYS: No - HPI Patient complains to provider of: Flank pain, Hematuria Onset: - Wednesday Timing/Duration: Persistent Quality of pain: Sharp Severity at maximum: Moderate Severity in ED: Moderate Pain Level: 3 Location: Left flank, Right flank Associated symptoms: Chills, Hematuria, Other - Lateral flank pain worse on the right Exacerbated by: Movement Relieved by: Denies Similar symptoms previously: Yes Recently seen / treated by doctor: No - Related Data Allergies/Adverse Reactions: No Known Allergies Allergy (Verified 02/27/19 18:45) Past Medical History - General Information source: Patient - Social History Smoking Status: Current Every Day Smoker Cigarette use (# per day): Yes - 2 to 3 cigarettes a day Smoking Education Provided: Yes - 4 minutes Frequency of alcohol use: Rare Drug Abuse: None Lives with: Family Family History: Reviewed & Not Pertinent Patient has suicidal ideation: No Patient has homicidal ideation: No - Past Medical History Cardiac Medical History: Reports: None Pulmonary Medical History: Reports: None EENT Medical History: Reports: None Neurological Medical History: Reports: None Endocrine Medical History: Reports: None Renal/ Medical History: Reports: None Malignancy Medical History: Reports None GI Medical History: Reports: Hx Hepatitis - C Musculoskeletal Medical History: Reports None Skin Medical History: Reports None Psychiatric Medical History: Reports: None Traumatic Medical History: Reports: Hx Spine Fracture - L-1996, RESULTANT SPASTIC PARAPLEGIA & URINARY RETENTION. Infectious Medical History: Reports: Hx Hepatitis - C Past Surgical History: Reports: Hx Orthopedic Surgery - femur fx, L1 back fx - Immunizations Hx Diphtheria, Pertussis, Tetanus Vaccination: Yes Hx Pneumococcal Vaccination: 09/01/13 Review of Systems - Review of Systems Constitutional: No symptoms reported, Chills, Recent illness EENT: No symptoms reported Cardiovascular: No symptoms reported Respiratory: No symptoms reported Gastrointestinal: No symptoms reported Genitourinary: Burning, Flank pain, Hematuria, Other - Have caths Male Genitourinary: No symptoms reported Musculoskeletal: No symptoms reported Skin: No symptoms reported Hematologic/Lymphatic: No symptoms reported Neurological/Psychological: No symptoms reported -: Yes All other systems reviewed and negative Physical Exam - Vital signs Vitals: Temp Pulse Resp BP Pulse Ox 97.9 F 109 H 16 101/64 99 08/09/19 20:49 08/09/19 20:49 08/09/19 20:49 08/09/19 20:49 08/09/19 20:49 Interpretation: Normal - General General appearance: Appears well, Alert - HEENT Head: Normocephalic, Atraumatic Eyes: Normal Pupils: PERRL - Respiratory Respiratory status: No respiratory distress Chest status: Nontender Breath sounds: Normal Chest palpation: Normal - Cardiovascular Rhythm: Regular Heart sounds: Normal auscultation Murmur: No - Abdominal Inspection: Normal Distension: No distension Bowel sounds: Normal Tenderness: Tender - Generalized Organomegaly: No organomegaly - Back Back: Normal, Nontender, Tender, CVA tenderness - Bilateral worse on the right. No: Vertebra tenderness - Extremities General upper extremity: Normal inspection, Nontender, Normal color, Normal ROM, Normal temperature General lower extremity: Normal inspection, Nontender, Normal color, Normal ROM, Normal temperature, Normal weight bearing. No: Josefina's sign - Neurological Neuro grossly intact: Yes Cognition: Normal Orientation: AAOx4 Elena Coma Scale Eye Opening: Spontaneous Elena Coma Scale Verbal: Oriented Elena Coma Scale Motor: Obeys Commands [place] Coma Scale Total: 15 Speech: Normal Motor strength normal: LUE, RUE, LLE, RLE Sensory: Normal - Psychological Associated symptoms: Normal affect, Normal mood - Skin Skin Temperature: Warm Skin Moisture: Dry Skin Color: Normal Course - Re-evaluation Re-evalutation: 08/10/19 08:32 After patient was treated with antibiotics and IV fluids. Patient self cathed a second time and there was no blood in the urine. Patient was discharged home with prescription for Keflex for 10 days and instructed to please follow-up with his primary care and a urologist. Patient was given strict instructions not to use the same catheter repeatedly for self cathing. He stated he had used the same catheter for the last week. - Vital Signs Vital signs: Temp Pulse Resp BP Pulse Ox 97.9 F 88 16 108/64 100 08/10/19 04:17 08/10/19 04:17 08/10/19 04:17 08/10/19 04:17 08/10/19 04:17 - Laboratory Result Diagrams: 08/09/19 21:51 08/09/19 21:51 Laboratory results interpreted by me: 08/09/19 08/09/19 08/09/19 21:51 21:51 22:07 WBC 16.5 H Hgb 12.6 L RDW 17.3 H Plt Count 561 H Lymph % (Auto) 10.3 L Absolute Neuts (auto) 13.5 H Seg Neutrophils % 81.8 H Alkaline Phosphatase 140 H Total Protein 9.0 H Urine Protein 100 H Urine Blood LARGE H Ur Leukocyte Esterase MODERATE H Urine Ascorbic Acid 20 H Discharge - Discharge Clinical Impression: UTI (urinary tract infection) Qualifiers: Urinary tract infection type: acute cystitis Hematuria presence: with hematuria Qualified Code(s): N30.01 - Acute cystitis with hematuria Condition: Stable Disposition: HOME, SELF-CARE Additional Instructions: URINARY TRACT INFECTION: Your evaluation indicates that you have a urinary tract infection. This is due to germs growing in the bladder. This is a common problem. This infection usually responds quickly to antibiotics. Your antibiotic should be taken exactly as prescribed. Drink plenty of fluids -- three to four quarts a day. Occasionally, a bladder anesthetic will be prescribed to help stop the feeling of urgency until the antibiotic has a chance to clear the infection. This may cause your urine to be dark orange. Certain urine infections require a culture. If the doctor obtained a culture, the results will be back in two days. You should call to see if a change in treatment is needed. A repeat urinalysis after you finish treatment is often recommended. The physician will let you know if further testing is required. Call the doctor if you develop fever, chills, flank pain, inability to urinate, or blood in the urine. CEPHALEXIN: The antibiotic you've been prescribed is a member of the cephalosporin class. This type of antibiotic covers a wide variety of infections, including those of the skin, lungs, and urinary tract. It's useful for staph infections. This antibiotic is slightly similar to the penicillin family. In rare cases, a person who is allergic to penicillin will also be allergic to this medication. If you have had a severe allergic reaction to penicillin, and have not taken this antibiotic since that time, notify your doctor. Antibiotics which cover many germs ("broad spectrum" antibiotics) are more likely to cause diarrhea or "yeast" infections. Women prone to vaginal yeast problems may suffer an attack after taking this antibiotic. In infants, oral thrush (white spots "stuck" on the cheek) or yeast diaper rash may result. See your doctor if these problems occur. Call at once if you develop itching, hives, shortness of breath, or lightheadedness. Rocephin You have been given an injection of an antibiotic called Rocephin (ceftriaxone). Sometimes the injection must be combined with antibiotic pills. For some infections, such as an uncomplicated ear infection, Rocephin provides all the antibiotic that's needed. The antibiotic will be in your body for about two days. For serious infections, we usually repeat doses of Rocephin daily. Side effects are very unusual following a shot. Women may develop vaginal yeast infections, and babies can get yeast (thrush) in the mouth following the use of antibiotics. Contact your physician if you have symptoms with this med ication. Allergy to this antibiotic can result in hives, wheezing, faintness, or itching. If symptoms of allergy occur, call the doctor at once. Please do not use a catheter more than 1 time as it will increase your risk of urinary tract infections. You have used this catheter you state multiple times this week. Please throw that went away as soon as possible. Please go to a [email or web address] or [employer] supply [email or web address] and get you some catheters until yours come that you have ordered. If you develop any fevers nausea or vomiting increase in symptoms please return to the ED or follow-up with your primary care doctor. Please use your antibiotics until they are completed please do not stop till they are completed. A culture has been sent on your urine if it shows that the treatment I have given you is not sufficient they will call you with a new prescription. FOLLOW-UP CARE: If you have been referred to a physician for follow-up care, call the physicians office for an appointment as you were instructed or within the next two days. If you experience worsening or a significant change in your symptoms, notify the physician immediately or return to the Emergency Department at any time for re-evaluation. Prescriptions: Cephalexin Monohydrate [Keflex 500 mg Capsule] 500 mg PO Q6H 10 Days capsule Forms: Smoking Cessation Education
[2019-08-10] MEDS ORDERED: LIDOCAINE 2% URO-JET 5 ML KIT MM ONE (03:15)
[2019-08-10 04:23] VITALS: BP 108/64
== END 2019-08-10 04:39 | disposition home or self-care (01) ==
LOC: ER 20:43
DX: N30.01 Acute cystitis with hematuria (principal); R10.9 Unspecified abdominal pain; F17.210 Nicotine dependence, cigarettes, uncomplicated; Z86.19 Personal history of other infectious and parasitic diseases
CPT/HCPCS: 99284; 96361; 96375; 96365; 36415; 87040; 87086; 83605; 83690; 85025; 87088; 80053; 81001; 87186; J1885; J7030; J0696; A9270; J3490

== ENCOUNTER 2019-08-21 17:38 | Inpatient (IN) | payer MEDICARE, MEDICAID ==
[2019-08-21] MEDS ORDERED: VANCOMYCIN HCL INJ 1000 MG VIAL IV ONE ×2 (19:16→20:24)
--- NOTE | 2019-08-21 19:19 | ER Document Report ---
ED Medical Screen (RME) - General Chief Complaint: Arm Pain Stated Complaint: ARM PAIN Time Seen by Provider: 08/21/19 19:06 Mode of Arrival: Ambulatory Information source: Patient Notes: 38-year-old male patient presenting to the emergency department with large abscess to his left forearm. Patient admits to injecting methamphetamines to this area approximately 4 days ago. There is a large area of induration with fluctuance and erythema extending up into the upper arm. I called and spoke with Dr. Garcia, on-call surgeon who will come see the patient once he is in room. I have greeted and performed a rapid initial assessment of this patient. A comprehensive ED assessment and evaluation of the patient, analysis of test results and completion of the medical decision making process will be conducted by additional ED providers. I have specifically instructed the patient or family members with the patient to immediately return to any nursing staff should anything change in the patient's condition or with their chief complaint. TRAVEL OUTSIDE OF THE [place] IN LAST 30 DAYS: No - Related Data Allergies/Adverse Reactions: No Known Allergies Allergy (Verified 02/27/19 18:45) Past Medical History - Social History Frequency of alcohol use: None Drug Abuse: Methamphetamine, Prescription drugs - Past Medical History Cardiac Medical History: Denies: Hx Coronary Artery Disease, Hx Heart Attack, Hx Hypertension Pulmonary Medical History: Denies: Hx Asthma, Hx Bronchitis, Hx COPD, Hx Pneumonia Neurological Medical History: Denies: Hx Cerebrovascular Accident, Hx Seizures Renal/ Medical History: Denies: Hx Peritoneal Dialysis GI Medical History: Reports: Hx Hepatitis - C Musculoskeltal Medical History: Denies Hx Arthritis Psychiatric Medical History: Denies: Hx Depression Traumatic Medical History: Reports: Hx Spine Fracture - L1996, RESULTANT SPASTIC PARAPLEGIA & URINARY RETENTION. Infectious Medical History: Reports: Hx Hepatitis - C Past Surgical History: Reports: Hx Orthopedic Surgery - femur fx, L1 back fx - Immunizations Hx Diphtheria, Pertussis, Tetanus Vaccination: Yes Physical Exam - Vital signs Vitals: Temp Pulse Resp BP Pulse Ox 98.1 F 120 H 16 130/106 H 100 08/21/19 17:42 08/21/19 17:42 08/21/19 17:42 08/21/19 17:42 08/21/19 17:42 Course - Vital Signs Vital signs: Temp Pulse Resp BP Pulse Ox 98.1 F 120 H 16 130/106 H 100 08/21/19 17:42 08/21/19 17:42 08/21/19 17:42 08/21/19 17:42 08/21/19 17:42
--- NOTE | 2019-08-21 19:58 | PDOC CONSULTATION ---
Consultation Consult Date: 08/21/19 Provider Consulted: HERMILA FERNANDEZ Consult reason:: Abscess left arm History of Present Illness History of Present Illness: MEKHI DEUTSCH is a 38 year old male Presents emergency department via ground rescue complaining of left arm swelling, pain, redness at site of injection of IV drugs. Patient has history of IV drug abuse including heroin, methamphetamines etc. He has had drainage procedures in the past. He seen the emergency department where he was found to have a very large mass consistent with abscess just distal to the left elbow on the ulnar side of the lower arm. Surgery was consulted and patient is advised admission to the hospital service with surgery consulting for surgical drainage. Unfortunately the patient had 20 ounces of lemonade at 5 PM. Past Medical History Past Medical History: Paraplegia, urinary retention, back surgery, previous drainage procedures Cardiac Medical History: Denies: Coronary Artery Disease, Myocardial Infarction, Hypertension Pulmonary Medical History: Denies: Asthma, Bronchitis, Chronic Obstructive Pulmonary Disease (COPD), Pneumonia Neurological Medical History: Denies: Seizures GI Medical History: Reports: Hepatitis - C Musculoskeltal Medical History: Denies: Arthritis Psychiatric Medical History: Denies: Depression Hematology: Denies: Anemia Past Surgical History Past Surgical History: As above Past Surgical History: Reports: Orthopedic Surgery - femur fx, L1 back fx Social History Smoking Status: Unknown if Ever Smoked Frequency of Alcohol Use: Rare Hx Recreational Drug Use: No Drugs: None Hx Prescription Drug Abuse: Yes Family History Family History: None, Reviewed & Not Pertinent Parental Family History Reviewed: No Children Family History Reviewed: No Sibling(s) Family History Reviewed.: No Medication/Allergy Home Medications: Buprenorphine HCl/Naloxone HCl [Suboxone 8 mg-2 mg Sl Film] 2 film SL DAILY 06/08/17 Gabapentin 800 mg PO PRN PRN 01/25/18 Clonidine [Catapres-Tts 1 (0.1 mg/24 Hr) Transderm Patch] 1 each TD Q7D #1 patch.tdwk 06/03/18 Gabapentin 600 mg PO QHS #14 tablet 06/03/18 Ondansetron [Zofran Odt 4 mg Tablet] 1 tab PO Q4H PRN #15 tab.rapdis 06/03/18 Cephalexin Monohydrate [Keflex 500 mg Capsule] 500 mg PO BID 7 Days #14 capsule 02/28/19 Oxycodone HCl/Acetaminophen [Percocet 5-325 mg Tablet] 1 - 2 tab PO TID PRN #15 tablet 02/28/19 Promethazine HCl [Phenergan 25 mg Tablet] 25 mg PO Q6H PRN #20 tablet 02/28/19 Levofloxacin [Levaquin 750 mg Tablet] 750 mg PO DAILY #5 tablet 03/15/19 Cephalexin Monohydrate [Keflex 500 mg Capsule] 500 mg PO Q6H 10 Days capsule 08/10/19 Allergies/Adverse Reactions: No Known Allergies Allergy (Verified 02/27/19 18:45) Review of Systems Constitutional: ABSENT: chills, fever(s), headache(s), weight gain, weight loss Eyes: ABSENT: visual disturbances Ears: ABSENT: hearing changes Cardiovascular: ABSENT: chest pain, dyspnea on exertion, edema, orthropnea, palpitations Neurological: PRESENT: other - Weakness of the lower extremities below the knees.. ABSENT: abnormal gait, abnormal speech, confusion, dizziness, focal weakness, syncope Physical Exam Vital Signs: Temp Pulse Resp BP Pulse Ox 98.1 F 120 H 16 130/106 H 100 08/21/19 17:42 08/21/19 17:42 08/21/19 17:42 08/21/19 17:42 08/21/19 17:42 Intake & Output 08/20/19 08/21/19 08/22/19 06:59 06:59 06:59 Weight 61.235 kg General appearance: PRESENT: other - Anxious Head exam: PRESENT: normocephalic Eye exam: PRESENT: EOMI Ear exam: PRESENT: other - Evidence of failure piercing Mouth exam: PRESENT: dry mucosa Neck exam: PRESENT: full ROM Respiratory exam: PRESENT: rhonchi Pulses: PRESENT: normal carotid pulses, normal radial pulses, normal femoral pulses GI/Abdominal exam: PRESENT: other - Soft nontender Extremities exam: PRESENT: other - No tone in the feet: Left upper extremity examined. There is a very swollen red tender elevation to the skin and subcutaneous tissue the size of a baseball on the ulnar side of the left arm distal to the olecranon process Neurological exam: PRESENT: oriented to person, oriented to place, oriented to time, oriented to situation Assessment & Plan - Diagnosis (1) Abscess of left arm Is this a current diagnosis for this admission?: Yes Plan: Impression: Large abscess of left upper extremity at site of IV drug abuse likely basilic vein Recommendations: 1. Admit to hospital service with surgery consulting 2. Empiric antibiotic therapy to cover gram-positive organisms; unfortunately patient drank 20 ounces of lemonade a little over 2 hours ago in the lobby; since we cannot deem this an emergency, we will set patient up for arm debridement in the early a.m. (2) IV drug abuse Is this a current diagnosis for this admission?: Yes (3) Paraplegia Is this a current diagnosis for this admission?: Yes - Time Time Spent: 30 to 50 Minutes Smoking Cessation Education: over 10 minutes Medications reviewed and adjusted accordingly: Yes Anticipated discharge: Home
[2019-08-21] MEDS ORDERED: NORMAL SALINE 1000 ML 1,000 ML IV ONE (20:23)
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
[2019-08-21] MEDS ORDERED: PIPERACILLIN/TAZOBACTAM 3.375 GM VIAL IV ONE (20:24)
[2019-08-21 21:08] LABS: HEMATOCRIT 37.3 % (37.9-51.0); HEMOGLOBIN 12.5 g/dL (13.5-17.0); MEAN CORPUSCULAR HEMOGLOBIN 27.2 pg (27.0-33.4); MEAN CORPUSCULAR HGB CONC 33.4 g/dL (32.0-36.0); MEAN CORPUSCULAR VOLUME 81 fl (80-97); PLATELET COUNT 592 10^3/uL (150-450); RED BLOOD COUNT 4.59 10^6/uL (4.35-5.55); WHITE BLOOD COUNT 29.8 10^3/uL (4.0-10.5)
[2019-08-21 21:36] LABS: ABSOLUTE LYMPHOCYTES# (MANUAL) 2.1 10^3/uL (0.5-4.7); ABSOLUTE MONOCYTES # (MANUAL) 0.6 10^3/uL (0.1-1.4); ANISOCYTOSIS 1+; BASOPHILS % (MANUAL) 0 % (0-2); EOSINOPHILS % (MANUAL) 0 % (0-6); LYMPHOCYTES % (MANUAL) 7 % (13-45); MONOCYTES % (MANUAL) 2 % (3-13); SEGMENTED NEUTROPHILS % (MAN) 91 % (42-78); TOTAL CELLS COUNTED 100
[2019-08-21 21:37] LABS: PLATELET COMMENT INCREASED
[2019-08-21 21:40] LABS: ALBUMIN 3.6 g/dL (3.5-5.0); ALKALINE PHOSPHATASE 152 U/L (38-126); ANION GAP 15 (5-19); ASPARTATE AMINO TRANSFERASE 26 U/L (17-59); BILIRUBIN,DIRECT 0.4 mg/dL (0.0-0.4); BILIRUBIN,TOTAL 0.4 mg/dL (0.2-1.3); BLOOD UREA NITROGEN 11 mg/dL (7-20); CALCIUM 9.3 mg/dL (8.4-10.2); CARBON DIOXIDE 24 mmol/L (22-30); CHLORIDE 98 mmol/L (98-107); GLUCOSE 80 mg/dL (75-110); POTASSIUM 3.8 mmol/L (3.6-5.0); TOTAL PROTEIN 8.5 g/dL (6.3-8.2)
[2019-08-21 21:50] LABS: ERYTHROCYTE SEDIMENTATION RATE 91 mm/hr (0-15)
[2019-08-21] MEDS ORDERED: ACETAMINOPHEN 325 MG TABLET PO ONE (22:15)
--- NOTE | 2019-08-21 23:16 | RADIOLOGY REPORT (SQ) ---
EXAM DESCRIPTION: XR CHEST 1 VIEW COMPLETED DATE/TME: 08/21/2019 21:42 CLINICAL HISTORY: 38 years, Male, decreased breath sounds COMPARISON: None NUMBER OF VIEWS: One TECHNIQUE: Single frontal view of the chest was obtained portably LIMITATIONS: None. FINDINGS: Cardiac and mediastinal contours are normal. Lungs are clear. No pleural effusion or pneumothorax. There are partially imaged postsurgical changes of thoracolumbar spinal fusion. IMPRESSION: No acute disease. copyright 2010 [employer]- All Rights Reserved
[2019-08-21] MEDS ORDERED: VANCOMYCIN HCL INJ 1000 MG VIAL ONE (23:42)
[2019-08-22] MEDS ORDERED: RINGERS SOLUTION,LACTATED 1,000 ML IV PRN ×2 (06:20→14:50)
[2019-08-22] MEDS ORDERED: AMPICILLIN SOD/SULBACTAM 3 GM VIAL ONE (06:46)
[2019-08-22] MEDS ORDERED: AMPICILLIN SODIUM/SULBACTAM NA 3 GM in NORMAL SALINE 100 ML IV SCH (07:00)
--- NOTE | 2019-08-22 08:40 | PDOC PROGRESS REPORT ---
Subjective Progress Note for:: 08/22/19 Subjective:: Complaint of the left arm pain with acute swelling since Wednesday last week with a intermittent fever. No drainage. History of IV heroin abuse at this site likely at the basilic vein region. Reason For Visit: ARM ABSCESS Physical Exam Vital Signs: Temp Pulse Resp BP Pulse Ox 98.5 F 120 H 18 126/81 H 100 08/22/19 07:17 08/21/19 17:42 08/22/19 05:00 08/22/19 07:00 08/22/19 07:01 Intake & Output 08/21/19 08/22/19 08/23/19 06:59 06:59 06:59 Intake Total 1000 100 Balance 1000 100 Weight 61.235 kg General appearance: PRESENT: no acute distress, cooperative Respiratory exam: PRESENT: clear to auscultation cee Cardiovascular exam: PRESENT: RRR Extremities exam: PRESENT: other - Left lower arm just below the elbow centralized at the ulnar aspect a large area of diffuse swelling with fluctuance and overlying erythema. Results Laboratory Results: 08/21/19 20:45 08/21/19 20:45 08/21/19 08/21/19 20:45 20:45 WBC 29.8 H RBC 4.59 Hgb 12.5 L Hct 37.3 L MCV 81 MCH 27.2 MCHC 33.4 RDW 18.0 H Plt Count 592 H Seg Neutrophils % Not Reportable Sodium 136.9 L Potassium 3.8 Chloride 98 Carbon Dioxide 24 Anion Gap 15 BUN 11 Creatinine 0.58 Est GFR ( Amer) > 60 Glucose 80 Calcium 9.3 Total Bilirubin 0.4 AST 26 Alkaline Phosphatase 152 H C-Reactive Protein 226.0 H Total Protein 8.5 H Albumin 3.6 Impressions: Chest X-Ray 08/21/19 21:42 IMPRESSION: No acute disease. copyright 2010 [employer]- All Rights Reserved Assessment & Plan - Diagnosis (1) Abscess of left arm Is this a current diagnosis for this admission?: Yes Plan: Left arm abscess secondary to IV drug abuse. Patient will require incision and drainage. I have discussed with the patient the risk and benefits of the procedure including risk of adjacent structure injury, nerve injury, recurrence, prolonged wound healing. - Time Time Spent with patient: Less than 15 minutes Level of Care: MEDICAL Anticipated discharge: Home
--- NOTE | 2019-08-22 09:50 | EKG REPORT ---
SEVERITY:- OTHERWISE NORMAL ECG - SINUS TACHYCARDIA BORDERLINE LEFT AXIS DEVIATION : Confirmed by: Medardo Jewell 22-Aug-2019 09:48:51
[2019-08-22] MEDS ORDERED: SUCCINYLCHOLINE CHLORIDE INJ 200 MG/10 ML VIAL ONE (10:43)
[2019-08-22] MEDS ORDERED: FENTANYL CITRATE INJ/PF 100 MCG/2 ML AMPUL ONE (13:07)
[2019-08-22] MEDS ORDERED: DEXAMETHASONE SOD PHOSPHATE INJ 4 MG/1 ML VIAL ONE (13:07)
[2019-08-22] MEDS ORDERED: MIDAZOLAM 2 MG/2 ML INJ ONE (13:07)
[2019-08-22] MEDS ORDERED: PROPOFOL INJ 200 MG/20 ML VIAL IV ONE (13:07)
[2019-08-22] MEDS ORDERED: ONDANSETRON HCL INJ/PF 4 MG/2 ML SDV ONE (13:07)
[2019-08-22] MEDS ORDERED: MEPERIDINE HCL/PF INJ 25 MG/1 ML DISP.SYRIN IV PRN (14:02)
[2019-08-22] MEDS ORDERED: PROMETHAZINE HCL INJ 25 MG/1 ML VIAL IV PRN ×2 (14:02)
[2019-08-22] MEDS ORDERED: FENTANYL CITRATE INJ/PF 100 MCG/2 ML AMPUL IV PRN ×3 (14:02)
[2019-08-22] MEDS ORDERED: MORPHINE SULFATE 10 MG/ML INJ IV PRN (14:02)
[2019-08-22] MEDS ORDERED: ONDANSETRON HCL INJ/PF 4 MG/2 ML SDV IV PRN (14:02)
[2019-08-22] MEDS ORDERED: DIPHENHYDRAMINE HCL 50 MG/ML VIAL IV PRN (14:02)
--- NOTE | 2019-08-22 14:45 | Operative Report ---
Operative Report DATE OF SURGERY: 08/22/19 PREOPERATIVE DIAGNOSIS: Left arm abscess POSTOPERATIVE DIAGNOSIS: Left arm abscess OPERATION: Left arm abscess incision and drainage SURGEON: JOVON ALEXANDRA ANESTHESIA: GA TISSUE REMOVED OR ALTERED: Pus sent for Gram stain and culture COMPLICATIONS: None ESTIMATED BLOOD LOSS: 50 cc INTRAOPERATIVE FINDINGS: Approximately 11 x 5 cm abscess cavity located at the ulnar aspect of the left upper forearm. Deep-seated with foul-smelling pus. PROCEDURE: Informed consent was obtained. Patient was brought to the operating room and placed on the operating table in the supine position. After satisfactory induction of general anesthesia patient's left arm was prepped and draped in usual sterile fashion. Patient had a fluctuant large mass at the ulnar aspect of his left upper forearm centralize more in the volar aspect other than the dorsal aspect. A longitudinally oriented 5 cm incision was made overlying the region of fluctuance. A large 11 x 5 cm abscess cavity was then entered. It was deep-seated. Cautery was used only on the incised skin to avoid injury to the ulnar nerve. The whole inner cavity of the abscess was very friable with oozing, especially the deeper tissue. Aside from the diffuse oozing there was no pulsatile nor streaming blood loss. After the abscess cavity had been cleared out it was irrigated. For hemostasis the wound was then packed with gauze. Dressings were applied. Patient tolerated procedure well with no apparent complications.
[2019-08-22] MEDS ORDERED: INFLUENZA QUAD (6MOS+) 2019-20 VAC 0.5 ML SYR IM ONE (16:21)
[2019-08-22] MEDS: KETOROLAC TROMETHAMINE INJ/PF 30 MG/1 ML SDV IV PRN ×2 (16:42→23:52)
[2019-08-22] MEDS: AMPICILLIN SODIUM/SULBACTAM NA 3 GM in NORMAL SALINE 100 ML IV SCH ×2 (17:30→22:25)
[2019-08-22] MEDS ORDERED: IBUPROFEN 600 MG TABLET PO PRN (18:44)
[2019-08-22] MEDS: ACETAMINOPHEN 325 MG TABLET PO PRN (18:58)
[2019-08-23 05:10] LABS: HEMATOCRIT 30.5 % (37.9-51.0); MEAN CORPUSCULAR HEMOGLOBIN 27.4 pg (27.0-33.4); MEAN CORPUSCULAR HGB CONC 33.5 g/dL (32.0-36.0); MEAN CORPUSCULAR VOLUME 82 fl (80-97); PLATELET COUNT 446 10^3/uL (150-450); RED BLOOD COUNT 3.73 10^6/uL (4.35-5.55); WHITE BLOOD COUNT 27.7 10^3/uL (4.0-10.5)
[2019-08-23 05:16] LABS: HEMOGLOBIN 10.2 g/dL (13.5-17.0)
[2019-08-23] MEDS: AMPICILLIN SODIUM/SULBACTAM NA 3 GM in NORMAL SALINE 100 ML IV SCH ×3 (05:24→21:26)
[2019-08-23 05:29] LABS: ANION GAP 8 (5-19); BLOOD UREA NITROGEN 8 mg/dL (7-20); CARBON DIOXIDE 24 mmol/L (22-30); CHLORIDE 108 mmol/L (98-107); GLUCOSE 135 mg/dL (75-110); POTASSIUM 3.5 mmol/L (3.6-5.0)
[2019-08-23] MEDS: KETOROLAC TROMETHAMINE INJ/PF 30 MG/1 ML SDV IV PRN (07:45)
[2019-08-23] MEDS: ACETAMINOPHEN 325 MG TABLET PO PRN (13:19)
--- NOTE | 2019-08-23 14:25 | PDOC PROGRESS REPORT ---
Subjective Progress Note for:: 08/23/19 Reason For Visit: LEFT FOREARM ABSCESS Physical Exam Vital Signs: Temp Pulse Resp BP Pulse Ox 97.7 F 110 H 17 95/43 L 98 08/23/19 07:47 08/23/19 07:47 08/23/19 07:47 08/23/19 07:47 08/23/19 07:47 Intake & Output 08/22/19 08/23/19 08/24/19 06:59 06:59 06:59 Intake Total 1000 2596 Output Total 2190 Balance 1000 406 Weight 61.235 kg 62.8 kg Results Laboratory Results: 08/23/19 04:05 08/23/19 04:05 08/23/19 08/23/19 04:05 04:05 WBC 27.7 H RBC 3.73 L Hgb 10.2 L D Hct 30.5 L MCV 82 MCH 27.4 MCHC 33.5 RDW 18.0 H Plt Count 446 Sodium 139.5 Potassium 3.5 L Chloride 108 H Carbon Dioxide 24 Anion Gap 8 BUN 8 Creatinine 0.37 L Est GFR ( Amer) > 60 Glucose 135 H Calcium 8.0 L Impressions: Chest X-Ray 08/21/19 21:42 IMPRESSION: No acute disease. copyright 2011 [employer]- All Rights Reserved Assessment & Plan - Diagnosis (1) Abscess of left arm Is this a current diagnosis for this admission?: Yes - Time Time Spent with patient: Less than 15 minutes - Plan Summary Plan Summary: This is a 38-year-old male status post incision and drainage of a left arm abscess. I have removed the packing today, and the wound appears clean, without purulence. I have replaced the packing, and placed a dressing. I will attempt to arrange home health to care for the patient. Continue antibiotics, and await culture results. Home soon.
[2019-08-23] MEDS: HYDROCODONE/ACETAMINOPHEN 10-325 MG TABLET PO PRN ×2 (15:35→21:26)
[2019-08-23] MEDS: IBUPROFEN 800 MG TABLET PO SCH (17:34)
[2019-08-24] MEDS: AMPICILLIN SODIUM/SULBACTAM NA 3 GM in NORMAL SALINE 100 ML IV SCH ×2 (05:31→13:34)
[2019-08-24] MEDS: HYDROCODONE/ACETAMINOPHEN 10-325 MG TABLET PO PRN ×3 (05:33→14:12)
[2019-08-24] MEDS: IBUPROFEN 800 MG TABLET PO SCH ×2 (08:27→11:45)
--- NOTE | 2019-08-24 12:10 | PDOC PROGRESS REPORT ---
Subjective Progress Note for:: 08/24/19 Subjective:: Feels much better. Much less pain. Reason For Visit: LEFT FOREARM ABSCESS Physical Exam Vital Signs: Temp Pulse Resp BP Pulse Ox 97.8 F 75 17 112/60 100 08/24/19 07:28 08/24/19 07:28 08/24/19 07:28 08/24/19 07:28 08/24/19 07:28 Intake & Output 08/23/19 08/24/19 08/25/19 06:59 06:59 06:59 Intake Total 2596 1760 Output Total 2190 1900 Balance 406 -140 Weight 62.8 kg 65.7 kg General appearance: PRESENT: no acute distress, cooperative Respiratory exam: PRESENT: clear to auscultation cee Cardiovascular exam: PRESENT: RRR Extremities exam: PRESENT: other - Forearm wound appears clean with minimal erythema. No purulent drainage. Skin exam: PRESENT: other - Bilateral sacral decubitus ulcers are very clean with granulation tissue with no surrounding erythema and no purulent drainage Results Laboratory Results: 08/23/19 04:05 08/23/19 04:05 08/21/19 20:30 Buttocks - Decubitis Ulcer Gram Stain - Final Impressions: Chest X-Ray 08/21/19 21:42 IMPRESSION: No acute disease. copyright 2011 [employer]- All Rights Reserved Assessment & Plan - Diagnosis (1) Abscess of left arm Is this a current diagnosis for this admission?: Yes Plan: Status post incision and drainage. The wound looks very good. Continue IV antibiotics until the cultures return. Patient still has significant leukocytosis yesterday. Pending approval for home health to assist with dressing changes of his left arm as well as his decubitus ulcers. Will need follow-up at the wound care clinic. - Time Time Spent with patient: Less than 15 minutes
[2019-08-24 14:25] LABS: ABSOLUTE EOSINOPHILS # (AUTO) 0.1 10^3/uL (0.0-0.6); ABSOLUTE LYMPHOCYTES (AUTO) 2.7 10^3/uL (0.5-4.7); ABSOLUTE MONOCYTES (AUTO) 1.3 10^3/uL (0.1-1.4); ABSOLUTE NEUT (AUTO) 11.4 10^3/uL (1.7-8.2); BASOPHILS % (AUTO) 0.3 % (0-2); EOSINOPHILS % (AUTO) 0.7 % (0-6); HEMATOCRIT 28.3 % (37.9-51.0); HEMOGLOBIN 9.9 g/dL (13.5-17.0); LYMPHOCYTES % (AUTO) 17.5 % (13-45); MEAN CORPUSCULAR HEMOGLOBIN 28.7 pg (27.0-33.4); MEAN CORPUSCULAR HGB CONC 35.1 g/dL (32.0-36.0); MEAN CORPUSCULAR VOLUME 82 fl (80-97); MONOCYTES % (AUTO) 8.6 % (3-13); PLATELET COUNT 465 10^3/uL (150-450); RED BLOOD COUNT 3.46 10^6/uL (4.35-5.55); RED CELL DISTRIBUTION WIDTH 18.2 % (11.5-14.0); SEGMENTED NEUTROPHILS % (AUTO) 72.9 % (42-78); TOTAL CELLS COUNTED % (AUTO) 100 %; WHITE BLOOD COUNT 15.6 10^3/uL (4.0-10.5)
--- NOTE | 2019-08-24 15:01 | PDOC PROGRESS REPORT ---
Subjective Reason For Visit: LEFT FOREARM ABSCESS Physical Exam Vital Signs: Temp Pulse Resp BP Pulse Ox 97.8 F 84 18 105/52 L 96 08/24/19 11:23 08/24/19 11:23 08/24/19 11:23 08/24/19 11:23 08/24/19 11:23 Intake & Output 08/23/19 08/24/19 08/25/19 06:59 06:59 06:59 Intake Total 2596 1760 100 Output Total 2190 1900 Balance 406 -140 100 Weight 62.8 kg 65.7 kg Results Laboratory Results: 08/24/19 14:04 08/23/19 04:05 08/24/19 14:04 WBC 15.6 H RBC 3.46 L Hgb 9.9 L Hct 28.3 L MCV 82 MCH 28.7 MCHC 35.1 RDW 18.2 H Plt Count 465 H Seg Neutrophils % 72.9 08/21/19 20:30 Buttocks - Decubitis Ulcer Gram Stain - Final Impressions: Chest X-Ray 08/21/19 21:42 IMPRESSION: No acute disease. copyright 2011 [employer]- All Rights Reserved Assessment & Plan - Diagnosis (1) Abscess of left arm Is this a current diagnosis for this admission?: Yes Plan: Leukocytosis markedly improved. Patient remains afebrile with vital signs stable and his arm looks good. Home health has been set up. Will discharge patient home on Keflex for 5 days. We will have the patient follow-up at [facility] next week. - Time Time Spent with patient: Less than 15 minutes
--- NOTE | 2019-08-24 15:25 | PDOC DISCHARGE SUMMARY ---
General - Admit/Disc Date/PCP Admission Date/Primary Care Provider: 08/21/19 23:06 Discharge Date: 08/24/19 - Discharge Diagnosis Final Diagnosis: Left forearm abscess. Sacral decubitus ulcers. - Assessment Summary: Patient was initially admitted for IV antibiotics he subsequently underwent incision and drainage of a large left forearm abscess. He did well postoperatively. His marked leukocytosis was markedly improved at the time of discharge. He was not febrile and his wound looked very good. He was noted with noninfected sacral decubitus ulcers that appears very clean and was granulating. Patient is now been discharged to home in good condition. Home health was arranged for dressing changes with normal saline wet-to-dry dressing to his left forearm wound once a day. Santyl ointment with allevyn to decubitus wound every other day. He will follow-up at [facility]. I have placed him on Keflex 500 mg 3 times daily for 5 days. He may resume his regular diet. Patient abuses heroin and I am reluctant to prescribe any narcotics for the patient for pain. He may use Tylenol 650 mg 1 p.o. every 6 hours as needed for pain as well as Motrin 400 mg 1 p.o. every 8 hours as needed for pain. Of note wound care has refused to see this patient due to problems with the patient in the past. Patient is to call for fever, purulent drainage, redness of his wounds. - Additional Information Resuscitation Status: Full Code Discharge Activity: Activity As Tolerated, Other - Avoid prolonged sitting or laying on his decubitus ulcers. Referrals: [facility] [Provider Group] - 09/01/19 1:15 pm (with Dr. James) Prescriptions: Foam Bandage [Allevyn Sacrum] 1 each TP Q3DAYS #60 bandage Cephalexin Monohydrate [Keflex 500 mg Capsule] 500 mg PO TID #15 capsule Collagenase Clostridium Hist. [Santyl Ointment 30 gm] 1 applic TP DAILY #1 tube Home Medications: Cephalexin Monohydrate [Keflex 500 mg Capsule] 500 mg PO TID #15 capsule 08/24/19 Collagenase Clostridium Hist. [Santyl Ointment 30 gm] 1 applic TP DAILY #1 tube 08/24/19 Foam Bandage [Allevyn Sacrum] 1 each TP Q3DAYS #60 bandage 08/24/19 History of Present Illiness History of Present Illness: MEKHI DEUTSCH is a 38 year old male Physical Exam Vital Signs: Temp Pulse Resp BP Pulse Ox 97.8 F 84 18 105/52 L 96 08/24/19 11:23 08/24/19 11:23 08/24/19 11:23 08/24/19 11:23 08/24/19 11:23 Intake & Output 08/23/19 08/24/19 08/25/19 06:59 06:59 06:59 Intake Total 2596 1760 100 Output Total 2190 1900 Balance 406 -140 100 Weight 62.8 kg 65.7 kg Results Laboratory Results: WBC 15.6 10^3/uL (4.0-10.5) H 08/24/19 14:04 RBC 3.46 10^6/uL (4.35-5.55) L 08/24/19 14:04 Hgb 9.9 g/dL (13.5-17.0) L 08/24/19 14:04 Hct 28.3 % (37.9-51.0) L 08/24/19 14:04 MCV 82 fl (80-97) 08/24/19 14:04 MCH 28.7 pg (27.0-33.4) 08/24/19 14:04 MCHC 35.1 g/dL (32.0-36.0) 08/24/19 14:04 RDW 18.2 % (11.5-14.0) H 08/24/19 14:04 Plt Count 465 10^3/uL (150-450) H 08/24/19 14:04 Lymph % (Auto) 17.5 % (13-45) 08/24/19 14:04 [place] % (Auto) 8.6 % (3-13) 08/24/19 14:04 Eos % (Auto) 0.7 % (0-6) 08/24/19 14:04 Baso % (Auto) 0.3 % (0-2) 08/24/19 14:04 Absolute Neuts (auto) 11.4 10^3/uL (1.7-8.2) H 08/24/19 14:04 Absolute Lymphs (auto) 2.7 10^3/uL (0.5-4.7) 08/24/19 14:04 Absolute Monos (auto) 1.3 10^3/uL (0.1-1.4) 08/24/19 14:04 Absolute Eos (auto) 0.1 10^3/uL (0.0-0.6) 08/24/19 14:04 Absolute Basos (auto) 0.0 10^3/uL (0.0-0.2) 08/24/19 14:04 Total Counted 100 08/21/19 20:45 Seg Neutrophils % 72.9 % (42-78) 08/24/19 14:04 Seg Neuts % (Manual) 91 % (42-78) H 08/21/19 20:45 Lymphocytes % (Manual) 7 % (13-45) L 08/21/19 20:45 Monocytes % (Manual) 2 % (3-13) L 08/21/19 20:45 Eosinophils % (Manual) 0 % (0-6) 08/21/19 20:45 Basophils % (Manual) 0 % (0-2) 08/21/19 20:45 Abs Neuts (Manual) 27.1 10^3/uL (1.7-8.2) H 08/21/19 20:45 Abs Lymphs (Manual) 2.1 10^3/uL (0.5-4.7) 08/21/19 20:45 Abs Monocytes (Manual) 0.6 10^3/uL (0.1-1.4) 08/21/19 20:45 Absolute Eos (Manual) 0.0 10^3/uL (0.0-0.6) 08/21/19 20:45 Abs Basophils (Manual) 0.0 10^3/uL (0.0-0.2) 08/21/19 20:45 Platelet Comment INCREASED 08/21/19 20:45 Anisocytosis 1+ 08/21/19 20:45 ESR 91 mm/hr (0-15) H 08/21/19 20:45 Sodium 139.5 mmol/L (137-145) 08/23/19 04:05 Potassium 3.5 mmol/L (3.6-5.0) L 08/23/19 04:05 Chloride 108 mmol/L (98-107) H 08/23/19 04:05 Carbon Dioxide 24 mmol/L (22-30) 08/23/19 04:05 Anion Gap 8 (5-19) 08/23/19 04:05 BUN 8 mg/dL (7-20) 08/23/19 04:05 Creatinine 0.37 mg/dL (0.52-1.25) L 08/23/19 04:05 Est GFR ( Amer) > 60 (>60) 08/23/19 04:05 Est GFR (MDRD) Non-Af > 60 (>60) 08/23/19 04:05 Glucose 135 mg/dL (75-110) H 08/23/19 04:05 Calcium 8.0 mg/dL (8.4-10.2) L 08/23/19 04:05 Total Bilirubin 0.4 mg/dL (0.2-1.3) 08/21/19 20:45 Direct Bilirubin 0.4 mg/dL (0.0-0.4) 08/21/19 20:45 Neonat Total Bilirubin Not Reportable 08/21/19 20:45 Neonat Direct Bilirubin Not Reportable 08/21/19 20:45 Neonat Indirect Bili Not Reportable 08/21/19 20:45 AST 26 U/L (17-59) 08/21/19 20:45 ALT 14 U/L (<50) 08/21/19 20:45 Alkaline Phosphatase 152 U/L (38-126) H 08/21/19 20:45 C-Reactive Protein 226.0 mg/L (<10.0) H 08/21/19 20:45 Total Protein 8.5 g/dL (6.3-8.2) H 08/21/19 20:45 Albumin 3.6 g/dL (3.5-5.0) 08/21/19 20:45 Impressions: Chest X-Ray 08/21/19 21:42 IMPRESSION: No acute disease. copyright 2011 [employer]- All Rights Reserved
[2019-08-24 15:46] VITALS: BP 116/86
== END 2019-08-24 15:45 | disposition home health service (06) | DRG 602 ==
LOC: ER 17:38 → EH 23:06 → 5 08-22 15:55
PROVIDERS: ADMIT Surgery; ATTEND Surgery
PROC: 0J9H0ZX Drainage of Left Lower Arm Subcutaneous Tissue and Fascia, Open Approach, Diagnostic (ICD-10-PCS; principal; 2019-08-22 12:00)
PROC: 3E02340 Introduction of Influenza Vaccine into Muscle, Percutaneous Approach (ICD-10-PCS; 2019-08-24)
DX: L02.414 Cutaneous abscess of left upper limb (principal); L89.153 Pressure ulcer of sacral region, stage 3; G82.20 Paraplegia, unspecified; L03.114 Cellulitis of left upper limb; S32.019S Unspecified fracture of first lumbar vertebra, sequela; V89.2XXS Person injured in unspecified motor-vehicle accident, traffic, sequela; F17.200 Nicotine dependence, unspecified, uncomplicated; F11.10 Opioid abuse, uncomplicated; F15.10 Other stimulant abuse, uncomplicated; B19.20 Unspecified viral hepatitis C without hepatic coma; Z23 Encounter for immunization
CPT/HCPCS: 36415; 400; 71045; 80048; 80053; 85025; 85027; 85652; 86140; 87040; 87070; 87075; 87077; 87186; 87205; 90686; 93005; 93010; 96360; 99285; J0295; J0330; J1100; J1885; J2250; J2405; J2543; J2704; J3010; J3370; J3490; J7030; J7050; J7120

== ENCOUNTER 2019-11-10 14:14 | Inpatient (IN) | payer MEDICARE, MEDICAID ==
--- NOTE | 2019-11-10 14:40 | ER Document Report ---
ED Skin Rash/Insect Bite/Abscs - General Mode of Arrival: Ambulatory Information source: Patient TRAVEL OUTSIDE OF THE [place] IN LAST 30 DAYS: No - HPI Patient complains to provider of: Skin rash/lesion Onset: Other Onset/Duration: Worse - Chronic over a year getting worse Quality of pain: Sharp, Throbbing Severity: Moderate Pain Level: 3 Skin Character: Other - Pressure ulcer Identify cause: Yes - Pressure sore Exacerbated by: Denies Relieved by: Supine, Standing Similar symptoms previously: Yes Recently seen / treated by doctor: Yes <ABILIO LEZAMA - Last Filed: 11/10/19 18:11> <MAUDE REYNOLDS - Last Filed: 11/10/19 20:14> - General Chief Complaint: Skin Sore(s) Stated Complaint: SKIN SORE Time Seen by Provider: 11/10/19 14:32 Notes: 38-year-old male presented to ED for a pressure sore to the left buttocks. He states is been there for about a year he was getting treated by wound care clinic and then by [facility] but due to the pandemic heat he was not able to go into [facility] for about 3 months. He states he was having a home health nurse come to his house and see him until about a month ago when he moved away nobody came back to see him again. He states that the pain has increased greatly in the last months and he has been trying to take care of it but it seems to be getting worse. (ABILIO LEZAMA) - Related Data Allergies/Adverse Reactions: No Known Allergies Allergy (Verified 08/22/19 07:43) Past Medical History - General Information source: Patient - Social History Smoking Status: Unknown if Ever Smoked Frequency of alcohol use: None Drug Abuse: None Lives with: Family Family History: None, Reviewed & Not Pertinent - Past Medical History Cardiac Medical History: Reports: None Pulmonary Medical History: Reports: None EENT Medical History: Reports: None Neurological Medical History: Reports: Other - Paraplegic Endocrine Medical History: Reports: None Renal/ Medical History: Reports: None Malignancy Medical History: Reports None GI Medical History: Reports: Hx Hepatitis - C Musculoskeletal Medical History: Reports Other - Paraplegic Skin Medical History: Reports None Psychiatric Medical History: Reports: None Traumatic Medical History: Reports: Hx Spine Fracture - L-1996, RESULTANT SPASTIC PARAPLEGIA & URINARY RETENTION., Other - Paraplegic Infectious Medical History: Reports: Hx Hepatitis - C Past Surgical History: Reports: Hx Orthopedic Surgery - femur fx, L1 back fx - Immunizations Hx Diphtheria, Pertussis, Tetanus Vaccination: Yes Hx Pneumococcal Vaccination: 09/01/13 <ABILIO LEZAMA - Last Filed: 11/10/19 18:11> Review of Systems - Review of Systems Constitutional: No symptoms reported EENT: No symptoms reported Cardiovascular: No symptoms reported Respiratory: No symptoms reported Gastrointestinal: No symptoms reported Genitourinary: No symptoms reported Male Genitourinary: No symptoms reported Musculoskeletal: Other - Right lower leg pain bruises to both lower legs Skin: Other - Bilateral sacral decubitus draining Hematologic/Lymphatic: No symptoms reported Neurological/Psychological: No symptoms reported -: Yes All other systems reviewed and negative <ABILIO LEZAMA - Last Filed: 11/10/19 18:11> Physical Exam - Vital signs Interpretation: Normal - General General appearance: Appears well, Alert - HEENT Head: Normocephalic, Atraumatic Eyes: Normal Pupils: PERRL - Respiratory Respiratory status: No respiratory distress Chest status: Nontender Breath sounds: Normal Chest palpation: Normal - Cardiovascular Rhythm: Regular Heart sounds: Normal auscultation Murmur: No - Abdominal Inspection: Normal Distension: No distension Bowel sounds: Normal Tenderness: Nontender Organomegaly: No organomegaly - Back Back: Normal, Nontender - Extremities General upper extremity: Normal inspection, Nontender, Normal color, Normal temperature General lower extremity: Normal inspection, Nontender, Normal color, Normal temperature, Other - Paraplegic. No: Josefina's sign Ankle: Normal - Neurological Neuro grossly intact: Yes Cognition: Normal Orientation: AAOx4 Elena Coma Scale Eye Opening: Spontaneous [place] Coma Scale Verbal: Oriented Elena Coma Scale Motor: Obeys Commands [place] Coma Scale Total: 15 Speech: Normal Motor strength normal: LUE, RUE, LLE, RLE Sensory: Normal - Psychological Associated symptoms: Normal affect, Normal mood - Skin Skin Temperature: Warm Skin Moisture: Dry Skin Color: Normal Skin irregularity: other - Large decubitus ulcers both buttocks left worse than right. <ABILIO LEZAMA - Last Filed: 11/10/19 18:11> - Vital signs Vitals: Temp Pulse Resp BP Pulse Ox 97.9 F 98 16 127/91 H 99 11/10/19 14:19 11/10/19 14:19 11/10/19 14:19 11/10/19 14:19 11/10/19 14:19 Course - Laboratory Result Diagrams: 11/10/19 15:55 11/10/19 15:55 - Consults Saba Time consulted: 16:20 Consulted provider: will come to ER <ABILIO LEZAMA - Last Filed: 11/10/19 18:11> - Laboratory Result Diagrams: 11/10/19 15:55 11/10/19 15:55 <MAUDE REYNOLDS - Last Filed: 11/10/19 20:14> - Re-evaluation Re-evalutation: 11/10/19 20:14 MRI showing osteomyelitis and a right-sided abscess. Spoke with Jeffrey scott, hospitalist, he will admit the patient for further care and management. (MAUDE REYNOLDS) - Vital Signs Vital signs: Temp Pulse Resp BP Pulse Ox 98.0 F 64 18 105/57 L 98 11/10/19 19:28 11/10/19 19:28 11/10/19 19:28 11/10/19 19:28 11/10/19 19:28 - Laboratory Laboratory results interpreted by me: 11/10/19 11/10/19 15:55 15:55 WBC 11.2 H RBC 4.34 L Hgb 11.5 L Hct 35.0 L MCH 26.6 L RDW 18.8 H Plt Count 500 H Albumin 3.4 L - Consults Saba Reason for consultation: 11/10/19 18:02 Increasing pain to the decubitus to the left buttocks/sacrum. (ABILIO LEZAMA) Discharge <ABILIO LEZAMA - Last Filed: 11/10/19 18:11> - Discharge Admitting Provider: Jeffrey Scott Unit Admitted: Surgical Floor <MAUDE REYNOLDS - Last Filed: 11/10/19 20:14> - Discharge Clinical Impression: Decubitus ulcer of left hip, stage 3 Condition: Stable Disposition: ADMITTED INPATIENT Additional Instructions: Decubitus Ulcer A decubitus ulcer develops where there's pressure on the skin. It's a common problem in patients who can't move easily. The healing time depends on the size and depth of the ulcer, and on whether further damage can be avoided. If there are signs of infection, an antibiotic is prescribed. The ulcer should be cleaned and bandaged at least daily. The doctor may recommend special treatments such as whirlpool. Further pressure (such as lying on the ulcer area) should be absolutely avoided. Frequent changes of position will avoid further ulcers. To help the ulcer heal, pay close attention to general health. Diabetics should keep the blood sugar as normal as possible. Edema can be reduced with medication. Low blood oxygen can be improved with medication to improve breathing or an oxygen tank at home. Review the treatment of all medical problems with the doctor. Infection can spread from the ulcer. If there's fever, chilling, worsening pain, or increasing swelling in the area, call the doctor or return immediately. Continue dressings to bilateral decubitus as previously ordered by [facility]. Clindamycin You have been given a prescription for the antibiotic clindamycin. It is often prescribed for infections in the mouth, such as dental infections or a bscesses, and for skin infections due to MRSA. It's important that you take all the medication, unless instructed otherwise by your physician. Failure to complete the entire course can result in relapse of your condition. Common side effects of antibiotics include nausea, intestinal cramping, or diarrhea. Women may develop vaginal yeast infections, and babies can get yeast (thrush) in the mouth following the use of antibiotics. Contact your physician if you develop significant side effects from this medication. Allergy to this antibiotic can result in hives, wheezing, faintness, or itching. If symptoms of allergy occur, stop the medication and call the doctor. FOLLOW-UP CARE: If you have been referred to a physician for follow-up care, call the physicians office for an appointment as you were instructed or within the next two days. If you experience worsening or a significant change in your symptoms, notify the physician immediately or return to the Emergency Department at any time for re-evaluation. Home health is being contacted by discharge planning to continue treatment as before to assist with wound care to your bilateral decubitus ulcers. Please follow-up with your primary care doctor. Prescriptions: Clindamycin HCl 300 mg PO TID #30 capsule Forms: Elevated Blood Pressure
[2019-11-10] MEDS ORDERED: LIDOCAINE 1% INJ-PF (10 MG/ML) 30 ML SDV INJ ONE (15:24)
[2019-11-10 16:07] LABS: ABSOLUTE EOSINOPHILS # (AUTO) 0.2 10^3/uL (0.0-0.6); ABSOLUTE LYMPHOCYTES (AUTO) 2.3 10^3/uL (0.5-4.7); ABSOLUTE MONOCYTES (AUTO) 1.1 10^3/uL (0.1-1.4); ABSOLUTE NEUT (AUTO) 7.6 10^3/uL (1.7-8.2); BASOPHILS % (AUTO) 0.3 % (0-2); HEMOGLOBIN 11.5 g/dL (13.5-17.0); LYMPHOCYTES % (AUTO) 20.3 % (13-45); MEAN CORPUSCULAR HEMOGLOBIN 26.6 pg (27.0-33.4); MEAN CORPUSCULAR VOLUME 81 fl (80-97); MONOCYTES % (AUTO) 10.2 % (3-13); PLATELET COUNT 500 10^3/uL (150-450); RED BLOOD COUNT 4.34 10^6/uL (4.35-5.55); RED CELL DISTRIBUTION WIDTH 18.8 % (11.5-14.0); SEGMENTED NEUTROPHILS % (AUTO) 67.2 % (42-78); TOTAL CELLS COUNTED % (AUTO) 100 %; WHITE BLOOD COUNT 11.2 10^3/uL (4.0-10.5)
[2019-11-10 16:22] LABS: ALBUMIN 3.4 g/dL (3.5-5.0); ALKALINE PHOSPHATASE 81 U/L (38-126); ANION GAP 5 (5-19); ASPARTATE AMINO TRANSFERASE 18 U/L (17-59); BILIRUBIN,TOTAL 0.3 mg/dL (0.2-1.3); BLOOD UREA NITROGEN 11 mg/dL (7-20); CALCIUM 9.1 mg/dL (8.4-10.2); CARBON DIOXIDE 28 mmol/L (22-30); CHLORIDE 106 mmol/L (98-107); GLUCOSE 109 mg/dL (75-110); POTASSIUM 3.8 mmol/L (3.6-5.0); TOTAL PROTEIN 7.7 g/dL (6.3-8.2)
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
--- NOTE | 2019-11-10 16:55 | RADIOLOGY REPORT (SQ) ---
EXAM DESCRIPTION: HIP BILATERAL IMAGES COMPLETED DATE/TIME: 11/10/2019 4:43 pm REASON FOR STUDY: Large decubitus rule out bone involvement COMPARISON: Toro view of the pelvis from 05/13/2018 NUMBER OF VIEWS: Two views. TECHNIQUE: AP pelvis and additional frog-leg view of the left hip. LIMITATIONS: None. FINDINGS: MINERALIZATION: Normal. PRIMARY HIP: The hardware in the proximal femur is intact. There is no periprosthetic fracture or di slocation of the femoroacetabular joint. OPPOSITE HIP: No fracture or dislocation. PUBIS AND ISCHIUM: The ilioischial and iliopectineal lines are intact. There is no diastasis of the pubic symphysis. PELVIS: No fracture. SACRUM: The sacrum is obscured by overlying bowel. LOWER LUMBAR SPINE: No abnormality. SOFT TISSUES: No findings. OTHER: No other finding. IMPRESSION: The hardware in the proximal left femur is intact. There is no periprosthetic fracture or dislocation of the femoroacetabular joint. TECHNICAL DOCUMENTATION: JOB ID: [id number] 2010 [employer]- All Rights Reserved Reading location - IP/workstation name: [email or web address]
--- NOTE | 2019-11-10 18:00 | PDOC CONSULTATION ---
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 Patient comes in today because of several reasons #1 he has not had any wound care by professional for over 1 month, home health has not been to his house in 3 months. Second reason he comes in is because he said he has had some increased pain in of his left sacral decubitus which he has had for over a year. Patient states "I feel fine no fevers or chills". Patient is sitting up in bed with his knees bent up texting in no distress. Patient has been seen by general surgery and agrees that both sacral decubitus look clean dry with no drainage. Patient's white count is normal. Surgery has recommended MRI just to make sure there is no osteomyelitis. She has had plain films of his sacrum which show both hips to be free of any acute injury and specifically there is no mention of soft tissue swelling on the plain films. Patient was last seen by [facility] proximately 3 months ago. Once again these decubitus ulcers have been present for well over 1 year. Patient tells me he changes the dressing daily. She has not had any antibiotics in over 3 months and the last antibiotic he took was Keflex. Patient is not allergic to any drugs. Past Medical History Cardiac Medical History: Reports: None Denies: Coronary Artery Disease, Myocardial Infarction, Hypertension Pulmonary Medical History: Reports: None Denies: Asthma, Bronchitis, Chronic Obstructive Pulmonary Disease (COPD), Pneumonia EENT Medical History: Reports: None Neurological Medical History: Reports: Other - Paraplegic Denies: Seizures Endocrine Medical History: Reports: None Renal/ Medical History: Reports: None Malignancy Medical History: Reports: None GI Medical History: Reports: Hepatitis - C Musculoskeltal Medical History: Reports: Other - Paraplegic Denies: Arthritis Skin Medical History: Reports: None Psychiatric Medical History: Reports: None Denies: Depression Traumatic Medical History: Reports: Other - Paraplegic Hematology: Denies: Anemia Past Surgical History Past Surgical History: Reports: Orthopedic Surgery - femur fx, L1 back fx Social History Lives with: Family Smoking Status: Current Every Day Smoker Cigarettes Packs Per Day: 0.5 Frequency of Alcohol Use: None Hx Recreational Drug Use: No Drugs: None Hx Prescription Drug Abuse: Yes - Advance Directive Resuscitation Status: Full Code Family History Family History: None, Reviewed & Not Pertinent Parental Family History Reviewed: No Children Family History Reviewed: No Sibling(s) Family History Reviewed.: No Medication/Allergy Home Medications: Cephalexin Monohydrate [Keflex 500 mg Capsule] 500 mg PO TID #15 capsule 08/24/19 Collagenase Clostridium Hist. [Santyl Ointment 30 gm] 1 applic TP DAILY #1 tube 08/24/19 Foam Bandage [Allevyn Sacrum] 1 each TP Q3DAYS #60 bandage 08/24/19 Allergies/Adverse Reactions: No Known Allergies Allergy (Verified 08/22/19 07:43) Review of Systems Constitutional: ABSENT: chills, fever(s), headache(s), weight gain, weight loss Cardiovascular: ABSENT: chest pain, dyspnea on exertion, edema, orthropnea, palpitations Respiratory: ABSENT: cough, hemoptysis Musculoskeletal: PRESENT: other - Buttock pain left worse than right Neurological: ABSENT: abnormal gait, abnormal speech, confusion, dizziness, focal weakness, syncope Psychiatric: ABSENT: anxiety, depression, homidical ideation, suicidal ideation Physical Exam Vital Signs: Temp Pulse Resp BP Pulse Ox 97.9 F 98 16 127/91 H 99 11/10/19 14:19 11/10/19 14:19 11/10/19 14:19 11/10/19 14:19 11/10/19 14:19 Intake & Output 11/09/19 11/10/19 11/11/19 06:59 06:59 06:59 Weight 61.9 kg General appearance: PRESENT: no acute distress, other - As stated above patient is sitting up in bed texting smiling states "I feel fine". Respiratory exam: PRESENT: clear to auscultation cee. ABSENT: rales, rhonchi, wheezes Cardiovascular exam: PRESENT: RRR. ABSENT: diastolic murmur, rubs, systolic murmur Musculoskeletal exam: PRESENT: other - Patient has cubitus on the right buttocks which is approximately 5 cm in diameter it is clean dry with no drainage and no odor Patient has a decubitus on the left buttocks which is approximately 4 cm in diameter with once again no sign of infection no drainage no odor Neurological exam: PRESENT: other - Plegia from the knees down reportedly Psychiatric exam: PRESENT: appropriate affect, normal mood, other - Patient is very pleasant cordial. ABSENT: homicidal ideation, suicidal ideation Results Laboratory Results: 11/10/19 15:55 11/10/19 15:55 11/10/19 11/10/19 15:55 15:55 WBC 11.2 H RBC 4.34 L Hgb 11.5 L Hct 35.0 L MCV 81 MCH 26.6 L MCHC 33.0 RDW 18.8 H Plt Count 500 H Seg Neutrophils % 67.2 Sodium 139.3 Potassium 3.8 Chloride 106 Carbon Dioxide 28 Anion Gap 5 BUN 11 Creatinine 0.62 Est GFR ( Amer) > 60 Glucose 109 Calcium 9.1 Total Bilirubin 0.3 AST 18 Alkaline Phosphatase 81 Total Protein 7.7 Albumin 3.4 L Impressions: Hip X-Ray 11/10/19 16:18 IMPRESSION: The hardware in the proximal left femur is intact. There is no periprosthetic fracture or dislocation of the femoroacetabular joint. Assessment and Plan - Diagnosis (1) Decubitus ulcer of left hip, stage 3 Is this a current diagnosis for this admission?: Yes (2) Decubitus ulcer of trochanteric region of right hip, stage 3 Is this a current diagnosis for this admission?: Yes (3) Paraplegia Is this a current diagnosis for this admission?: Yes (4) Sacral wound Is this a current diagnosis for this admission?: Yes - Plan Summary Summary: I spent a lot of time talking to the provider on the phone and both in person after examining the patient I went and found the provider and discussed the care plan. Called MRI and they are willing to do a MRI of the sacrum. Patient does have hardware in his left MR however the pelvis is free of any hardware. Patient's decubitus are over the pelvic ring, not over the hips or acetabulum's. Also asked the patient the name of the home health and he has texted someone and they told him it was [facility]. Called discharge planning and they are going to call [facility] and get this set up for next week 3 or 4 times a week. Going to put the order in the system for this I am assuming the MRI scan is going to show no signs of osteomyelitis and if that is the case the provider in the ER will write for clindamycin 300 mg 3 t imes daily for 10 days. By some chance the MRI scan shows osteomyelitis then the patient will be admitted to the hospital for IV antibiotics. Patient is agreeable to this plan he to does not want to come into the hospital because of the risk of infection. 2 did not want to come to the emergency room because of the risk of infection. Patient agrees with the plan of going home if his MRI scan is negative on p.o. antibiotics. Once again I have discussed this with the provider in the emergency room. She has no questions. Patient appears to be medically stable - Time Time Spent with patient: 35 or more minutes
[2019-11-10] MEDS ORDERED: CLINDAMYCIN HCL 150 MG CAPSULE PO ONE (18:01)
[2019-11-10] MEDS ORDERED: MORPHINE SULFATE 10 MG/ML INJ IV ONE (18:16)
--- NOTE | 2019-11-10 19:55 | RADIOLOGY REPORT (SQ) ---
EXAM DESCRIPTION: MRI PELVIS WITHOUT IMAGES COMPLETED DATE/TIME: 11/10/2019 6:18 pm REASON FOR STUDY: sacral pain. Sacral decubitus ulcer for over 1 year. New muscle aches and spasms . Open wound without drainage. Ulcer for 1 year with scheduled for skin graft prior to surgery canc ellation is. New symptoms for 1 week. COMPARISON: None. TECHNIQUE: Multiplanar imaging of the pelvis to include fat and fluid sensitive sequences. LIMITATIONS: None. FINDINGS: BONE MARROW: There is abnormal hypointense T1 signal in the posterior right ischium withou t corresponding hyperintense T2 signal, corresponding to sclerosis on recent CT scan. There is hyper intense T2 signal in the posterior right acetabulum and iliac bone with associated periosteal reactio n and no associated T1 signal, suggestive of bone marrow edema. There is abnormal T1 and T2 signal i n the posterior left ischium consistent with osteomyelitis. Associated periosteal reaction at the in ferior left ischial periosteum. There is a left hip arthroplasty partially visualized. No hip joint effusion. SOFT TISSUES: There is a subcutaneous abscess in the right gluteus soft tissues measuring 3.6 x 2.3 c m extending to the sclerotic ischium. Overlying skin ulceration. There is skin ulceration and abnor mal hyperintense T2, hypointense T1 signal without focal drainable fluid collection in the posterior left gluteal soft tissues. This is consistent with a subcutaneous phlegmon. OTHER: No other significant finding. IMPRESSION: 1. Bilateral sacral decubitus ulcers. There is a subcutaneous abscess in the right gluteal soft tiss ues extending to the right posterior inferior ischium. Abnormal bone marrow signal at the right isch ium corresponds to sclerosis on previous CT and probably represents chronic osteomyelitis. There is abnormal bone marrow edema extending into the right posterior acetabulum, consistent with edema, poss ibly representing early osteomyelitis. 2. Left posterior gluteal phlegmon without focal drainable abscess extends to the left inferior ischi um. Abnormal bone marrow signal in the left ischium consistent with left ischial osteomyelitis. 3. Left hip arthroplasty. There is no left hip joint effusion. TECHNICAL DOCUMENTATION: JOB ID: [id number] 2010 [employer]- All Rights Reserved Reading location - IP/workstation name: [email or web address]
[2019-11-10] MEDS ORDERED: MAG HYDROX/AL HYDROX/SIMETH SUSP 30 ML UDCUP PO PRN (21:00)
[2019-11-10] MEDS ORDERED: ACETAMINOPHEN 325 MG TABLET PO PRN (21:00)
[2019-11-10] MEDS ORDERED: ONDANSETRON 4 MG TAB.RAPDIS PO PRN (21:00)
[2019-11-10] MEDS ORDERED: MAGNESIUM HYDROXIDE SUSP 30 ML UDCUP PO PRN (21:00)
[2019-11-10] MEDS ORDERED: ONDANSETRON HCL INJ/PF 4 MG/2 ML SDV IV PRN (21:00)
[2019-11-10] MEDS ORDERED: VANCOMYCIN HCL 0 MG in DEXTROSE 5%-WATER 250 ML IV NR (21:15)
--- NOTE | 2019-11-10 21:23 | PDOC PROGRESS REPORT ---
Subjective Progress Note for:: 11/10/19 Reason For Visit: DECUBITUS ULCER OF LEFT,STAGE 3 Physical Exam Vital Signs: Temp Pulse Resp BP Pulse Ox 98.0 F 64 18 105/57 L 98 11/10/19 19:28 11/10/19 19:28 11/10/19 19:28 11/10/19 19:28 11/10/19 19:28 Intake & Output 11/09/19 11/10/19 11/11/19 06:59 06:59 06:59 Weight 61.9 kg Results Laboratory Results: 11/10/19 15:55 11/10/19 15:55 11/10/19 11/10/19 15:55 15:55 WBC 11.2 H RBC 4.34 L Hgb 11.5 L Hct 35.0 L MCV 81 MCH 26.6 L MCHC 33.0 RDW 18.8 H Plt Count 500 H Seg Neutrophils % 67.2 Sodium 139.3 Potassium 3.8 Chloride 106 Carbon Dioxide 28 Anion Gap 5 BUN 11 Creatinine 0.62 Est GFR ( Amer) > 60 Glucose 109 Calcium 9.1 Total Bilirubin 0.3 AST 18 Alkaline Phosphatase 81 Total Protein 7.7 Albumin 3.4 L Impressions: Hip X-Ray 11/10/19 16:18 IMPRESSION: The hardware in the proximal left femur is intact. There is no periprosthetic fracture or dislocation of the femoroacetabular joint. Pelvis MRI 11/10/19 17:21 IMPRESSION: 1. Bilateral sacral decubitus ulcers. There is a subcutaneous abscess in the right gluteal soft tissues extending to the right posterior inferior ischium. Abnormal bone marrow signal at the right ischium corresponds to sclerosis on previous CT and probably represents chronic osteomyelitis. There is abnormal bone marrow edema extending into the right posterior acetabulum, consistent with edema, possibly representing early osteomyelitis. 2. Left posterior gluteal phlegmon without focal drainable abscess extends to the left inferior ischium. Abnormal bone marrow signal in the left ischium consistent with left ischial osteomyelitis. 3. Left hip arthroplasty. There is no left hip joint effusion. Assessment & Plan - Diagnosis (1) Decubitus ulcer of left hip, stage 3 Is this a current diagnosis for this admission?: Yes (2) Decubitus ulcer of trochanteric region of right hip, stage 3 Is this a current diagnosis for this admission?: Yes (3) Paraplegia Is this a current diagnosis for this admission?: Yes - Plan Summary Plan Summary: M MRI results noted. Has subcutaneous abscess on the right gluteal area extending to the ischium with a chronic osteomyelitis. On the left side there is no abscess but with osteomyelitis at the same time. I discussed above findings with the hospitalist and told him this may be more in the realm of orthopedics. I would recommend consultation with orthopedics to do treatment of the osteomyelitis which may need surgical intervention.
[2019-11-10 23:03] LABS: INTERNATIONAL RATION (INR) 1.03; PROTHROMBIN TIME 13.5 SEC (11.4-15.4)
[2019-11-10 23:17] LABS: ANION GAP 10 (5-19); BLOOD UREA NITROGEN 11 mg/dL (7-20); CALCIUM 9.1 mg/dL (8.4-10.2); CARBON DIOXIDE 26 mmol/L (22-30); CHLORIDE 104 mmol/L (98-107); CREATINE KINASE 42 U/L (55-170); GLUCOSE 160 mg/dL (75-110)
[2019-11-10] MEDS: OXYCODONE-ACETAMINOPHEN 5-325 MG TABLET PO PRN (23:39)
[2019-11-10] MEDS: VANCOMYCIN HCL 1,500 MG in DEXTROSE 5%-WATER 250 ML IV SCH (23:39)
[2019-11-11] MEDS ORDERED: PIPERACILLIN/TAZOBACTAM 3.375 GM VIAL IV ONE (01:35)
[2019-11-11] MEDS: PIPERACILLIN SODIUM/TAZOBACTAM 3.375 GM in NORMAL SALINE 100 ML IV SCH ×5 (01:55→23:39)
[2019-11-11 06:01] LABS: ABSOLUTE BASOPHILS # (AUTO) 0.1 10^3/uL (0.0-0.2); ABSOLUTE EOSINOPHILS # (AUTO) 0.3 10^3/uL (0.0-0.6); ABSOLUTE LYMPHOCYTES (AUTO) 2.1 10^3/uL (0.5-4.7); ABSOLUTE MONOCYTES (AUTO) 0.9 10^3/uL (0.1-1.4); ABSOLUTE NEUT (AUTO) 3.4 10^3/uL (1.7-8.2); BASOPHILS % (AUTO) 1.1 % (0-2); EOSINOPHILS % (AUTO) 4.7 % (0-6); HEMATOCRIT 31.6 % (37.9-51.0); HEMOGLOBIN 10.7 g/dL (13.5-17.0); LYMPHOCYTES % (AUTO) 30.8 % (13-45); MEAN CORPUSCULAR HEMOGLOBIN 26.8 pg (27.0-33.4); MEAN CORPUSCULAR HGB CONC 33.9 g/dL (32.0-36.0); MEAN CORPUSCULAR VOLUME 79 fl (80-97); MONOCYTES % (AUTO) 13.2 % (3-13); PLATELET COUNT 478 10^3/uL (150-450); RED BLOOD COUNT 3.99 10^6/uL (4.35-5.55); RED CELL DISTRIBUTION WIDTH 18.7 % (11.5-14.0); SEGMENTED NEUTROPHILS % (AUTO) 50.2 % (42-78); TOTAL CELLS COUNTED % (AUTO) 100 %; WHITE BLOOD COUNT 6.7 10^3/uL (4.0-10.5)
[2019-11-11] MEDS: OXYCODONE-ACETAMINOPHEN 5-325 MG TABLET PO PRN ×3 (06:20→20:09)
[2019-11-11 06:42] LABS: APPEARANCE,URINE SLIGHTLY-CLOUDY; BILIRUBIN,URINE NEGATIVE (NEGATIVE); COLOR,URINE YELLOW; GLUCOSE, URINE NEGATIVE (NEGATIVE); KETONES,URINE NEGATIVE (NEGATIVE); PROTEIN,URINE NEGATIVE (NEGATIVE); URINE SPECIFIC GRAVITY 1.024; UROBILINOGEN,URINE NEGATIVE mg/dL (<2.0)
--- NOTE | 2019-11-11 07:39 | PDOC H&P ---
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 Patient comes in today because of several reasons #1 he has not had any wound care by professional for over 1 month, home health has not been to his house in 3 months. Second reason he comes in is because he said he has had some increased pain in of his left sacral decubitus which he has had for over a year. Patient states "I feel fine no fevers or chills". Patient is sitting up in bed with his knees bent up texting in no distress. Patient has been seen by general surgery and agrees that both sacral decubitus look clean dry with no drainage. Patient's white count is normal. Surgery has recommended MRI just to make sure there is no osteomyelitis. She has had plain films of his sacrum which show both hips to be free of any acute injury and specifically there is no mention of soft tissue swelling on the plain films. Patient was last seen by [facility] proximately 3 months ago. Once again these decubitus ulcers have been present for well over 1 year. Patient tells me he changes the dressing daily. She has not had any antibiotics in over 3 months and the last antibiotic he took was Keflex. Patient is not allergic to any drugs. Past Medical History Cardiac Medical History: Reports: None Denies: Coronary Artery Disease, Myocardial Infarction, Hypertension Pulmonary Medical History: Reports: None Denies: Asthma, Bronchitis, Chronic Obstructive Pulmonary Disease (COPD), Pneumonia EENT Medical History: Reports: None Neurological Medical History: Reports: Other - Paraplegic Denies: Seizures Endocrine Medical History: Reports: None Renal/ Medical History: Reports: None Malignancy Medical History: Reports: None GI Medical History: Reports: Hepatitis - C Musculoskeltal Medical History: Reports: Other - Paraplegic Denies: Arthritis Skin Medical History: Reports: None Psychiatric Medical History: Reports: None Denies: Depression Traumatic Medical History: Reports: Other - Paraplegic Hematology: Denies: Anemia Past Surgical History Past Surgical History: Reports: Orthopedic Surgery - femur fx, L1 back fx Social History Lives with: Family Smoking Status: Current Every Day Smoker Cigarettes Packs Per Day: 0.5 Electronic Cigarette use?: No Frequency of Alcohol Use: None Hx Recreational Drug Use: Yes Drugs: None Hx Prescription Drug Abuse: Yes - Advance Directive Resuscitation Status: Full Code Family History Family History: None, Reviewed & Not Pertinent Parental Family History Reviewed: No Children Family History Reviewed: No Sibling(s) Family History Reviewed.: No Medication/Allergy Home Medications: Cephalexin Monohydrate [Keflex 500 mg Capsule] 500 mg PO TID #15 capsule 08/24/19 Collagenase Clostridium Hist. [Santyl Ointment 30 gm] 1 applic TP DAILY #1 tube 08/24/19 Foam Bandage [Allevyn Sacrum] 1 each TP Q3DAYS #60 bandage 08/24/19 Clindamycin HCl 300 mg PO TID #30 capsule 11/10/19 Allergies/Adverse Reactions: No Known Allergies Allergy (Verified 08/22/19 07:43) Review of Systems Constitutional: ABSENT: chills, fever(s), headache(s), weight gain, weight loss Cardiovascular: ABSENT: chest pain, dyspnea on exertion, edema, orthropnea, palpitations Respiratory: ABSENT: cough, hemoptysis Integumentary: PRESENT: wounds, other - Increasing pain for sacral decubitus last few days Neurological: ABSENT: abnormal gait, abnormal speech, confusion, dizziness, focal weakness, syncope Psychiatric: ABSENT: anxiety, depression, homidical ideation, suicidal ideation Physical Exam Vital Signs: Temp Pulse Resp BP Pulse Ox 98.2 F 64 16 121/63 100 11/10/19 23:20 11/10/19 23:20 11/10/19 23:20 11/10/19 23:20 11/10/19 23:13 Intake & Output 11/10/19 11/11/19 11/12/19 06:59 06:59 06:59 Intake Total 250 Balance 250 Weight 57.2 kg General appearance: PRESENT: no acute distress, thin, well-developed, well- nourished Respiratory exam: PRESENT: clear to auscultation cee. ABSENT: rales, rhonchi, wheezes Cardiovascular exam: PRESENT: RRR. ABSENT: diastolic murmur, rubs, systolic murmur Neurological exam: PRESENT: other - Bilateral foot drops, paralysis both lower extremities below the knees Psychiatric exam: PRESENT: appropriate affect, normal mood. ABSENT: homicidal ideation, suicidal ideation Results Laboratory Results: 11/11/19 05:25 11/10/19 22:42 11/10/19 11/10/19 11/10/19 15:55 15:55 22:42 WBC 11.2 H RBC 4.34 L Hgb 11.5 L Hct 35.0 L MCV 81 MCH 26.6 L MCHC 33.0 RDW 18.8 H Plt Count 500 H Seg Neutrophils % 67.2 Sodium 139.3 140.0 Potassium 3.8 4.0 Chloride 106 104 Carbon Dioxide 28 26 Anion Gap 5 10 BUN 11 11 Creatinine 0.62 0.59 Est GFR ( Amer) > 60 > 60 Glucose 109 160 H Calcium 9.1 9.1 Magnesium Total Bilirubin 0.3 AST 18 Alkaline Phosphatase 81 Total Protein 7.7 Albumin 3.4 L Urine Color Urine Appearance Urine pH Ur Specific [place] Urine Protein Urine Glucose (UA) Urine Ketones Urine Blood Urine RBC (Auto) 11/11/19 11/11/19 11/11/19 05:25 05:25 05:45 WBC 6.7 RBC 3.99 L Hgb 10.7 L Hct 31.6 L MCV 79 L MCH 26.8 L MCHC 33.9 RDW 18.7 H Plt Count 478 H Seg Neutrophils % 50.2 Sodium Potassium Chloride Carbon Dioxide Anion Gap BUN Creatinine Est GFR ( Amer) Glucose Calcium Magnesium 2.2 Total Bilirubin AST Alkaline Phosphatase Total Protein Albumin Urine Color YELLOW Urine Appearance SLIGHTLY-CLOUDY Urine pH 6.0 Ur Specific [place] 1.024 Urine Protein NEGATIVE Urine Glucose (UA) NEGATIVE Urine Ketones NEGATIVE Urine Blood SMALL H Urine RBC (Auto) 5 11/10/19 22:42 Creatine Kinase 42 L Impressions: Hip X-Ray 11/10/19 16:18 IMPRESSION: The hardware in the proximal left femur is intact. There is no periprosthetic fracture or dislocation of the femoroacetabular joint. Pelvis MRI 11/10/19 17:21 IMPRESSION: 1. Bilateral sacral decubitus ulcers. There is a subcutaneous abscess in the right gluteal soft tissues extending to the right posterior inferior ischium. Abnormal bone marrow signal at the right ischium corresponds to sclerosis on previous CT and probably represents chronic osteomyelitis. There is abnormal bone marrow edema extending into the right posterior acetabulum, consistent with edema, possibly representing early osteomyelitis. 2. Left posterior gluteal phlegmon without focal drainable abscess extends to the left inferior ischium. Abnormal bone marrow signal in the left ischium consistent with left ischial osteomyelitis. 3. Left hip arthroplasty. There is no left hip joint effusion. Assessment and Plan - Diagnosis (1) Decubitus ulcer of left hip, stage 3 Is this a current diagnosis for this admission?: Yes (2) Decubitus ulcer of trochanteric region of right hip, stage 3 Is this a current diagnosis for this admission?: Yes (3) Paraplegia Is this a current diagnosis for this admission?: Yes (4) Sacral wound Is this a current diagnosis for this admission?: Yes (5) Osteomyelitis Is this a current diagnosis for this admission?: Yes (6) Abscess, sacrum Is this a current diagnosis for this admission?: Yes - Plan Summary Summary: I spent a lot of time talking to the provider on the phone and both in person after examining the patient I went and found the provider and discussed the care plan. Called MRI and they are willing to do a MRI of the sacrum. Patient does have hardware in his left MR however the pelvis is free of any hardware. Patient's decubitus are over the pelvic ring, not over the hips or acetabulum's. Also asked the patient the name of the home health and he has texted someone and they told him it was [facility]. Called discharge planning and they are going to call [facility] and get this set up for next week 3 or 4 times a week. Going to put the order in the system for this I am assuming the MRI scan is going to show no signs of osteomyelitis and if that is the case the provider in the ER will write for clindamycin 300 mg 3 times daily for 10 days. By some chance the MRI scan shows osteomyelitis then the patient will be admitted to the hospital for IV antibiotics. Patient is agreeable to this plan he to does not want to come into the hospital because of the risk of infection. 2 did not want to come to the emergency room because of the risk of infection. Patient agrees with the plan of going home if his MRI scan is negative on p.o. antibiotics. Once again I have discussed this with the provider in the emergency room. She has no questions. Patient appears to be medically stable Addendum: Patient's MRI of the sacrum did show in fact osteomyelitis as well as a abscess. Patient's discharge to home was then changed to admission for IV antibiotics. - Time Time Spent with patient: 35 or more minutes
[2019-11-11] MEDS: DOCUSATE SODIUM 100 MG CAPSULE PO SCH (10:34)
[2019-11-11] MEDS: ENOXAPARIN SODIUM INJ 40 MG/0.4 ML DISP.SYRIN SUBCUT SCH (10:35)
[2019-11-11] MEDS: VANCOMYCIN HCL 1,500 MG in DEXTROSE 5%-WATER 250 ML IV SCH ×2 (10:39→22:01)
[2019-11-11] MEDS ORDERED: DIPHENHYDRAMINE HCL 50 MG/ML VIAL ONE (11:45)
[2019-11-11] MEDS ORDERED: DIPHENHYDRAMINE HCL 50 MG/ML VIAL IV PRN (11:47)
[2019-11-11] MEDS ORDERED: DIPHENHYDRAMINE HCL 25 MG CAPSULE PO PRN (11:47)
--- NOTE | 2019-11-11 12:03 | PDOC PROGRESS REPORT ---
Subjective Progress Note for:: 11/11/19 Subjective:: The patient is resting comfortably in bed. The buttock lesions are slightly sore. He has no acute complaints other than he is waiting for his lunch. Reason For Visit: OSTEOMYELITIS OF THE SACRUM, SACRAL DECUBITUS, Physical Exam Vital Signs: Temp Pulse Resp BP Pulse Ox 98.1 F 58 L 12 96/49 L 100 11/11/19 08:07 11/11/19 08:07 11/11/19 08:07 11/11/19 08:07 11/11/19 08:07 Intake & Output 11/10/19 11/11/19 11/12/19 06:59 06:59 06:59 Intake Total 250 Balance 250 Weight 57.2 kg General appearance: PRESENT: no acute distress, cooperative, well-developed Head exam: PRESENT: atraumatic, normocephalic Eye exam: PRESENT: conjunctiva pink. ABSENT: scleral icterus Ear exam: PRESENT: normal external ear exam. ABSENT: bleeding, drainage Mouth exam: PRESENT: moist, tongue midline Respiratory exam: PRESENT: clear to auscultation cee, symmetrical, unlabored. ABSENT: rales, rhonchi, tachypnea, wheezes Cardiovascular exam: PRESENT: RRR, +S1, +S2, systolic murmur - 2/6 GI/Abdominal exam: PRESENT: normal bowel sounds, soft. ABSENT: distended, guarding, tenderness Rectal exam: PRESENT: deferred Gentrourinary exam: ABSENT: indwelling catheter Extremities exam: ABSENT: pedal edema Musculoskeletal exam: PRESENT: ambulatory - With bilateral AFOs and crutches Neurological exam: PRESENT: alert, awake, oriented to person, oriented to place, oriented to time, oriented to situation, CN II-XII grossly intact Psychiatric exam: PRESENT: appropriate affect. ABSENT: agitated, anxious Focused psych exam: ABSENT: delusional, paranoid, restlessness Skin exam: PRESENT: other - Bilateral ischial ulcers stage IV present on admission Results Laboratory Results: 11/11/19 05:25 11/10/19 22:42 11/10/19 11/10/19 11/10/19 15:55 15:55 22:42 WBC 11.2 H RBC 4.34 L Hgb 11.5 L Hct 35.0 L MCV 81 MCH 26.6 L MCHC 33.0 RDW 18.8 H Plt Count 500 H Seg Neutrophils % 67.2 Sodium 139.3 140.0 Potassium 3.8 4.0 Chloride 106 104 Carbon Dioxide 28 26 Anion Gap 5 10 BUN 11 11 Creatinine 0.62 0.59 Est GFR ( Amer) > 60 > 60 Glucose 109 160 H Calcium 9.1 9.1 Magnesium Total Bilirubin 0.3 AST 18 Alkaline Phosphatase 81 Total Protein 7.7 Albumin 3.4 L Urine Color Urine Appearance Urine pH Ur Specific [place] Urine Protein Urine Glucose (UA) Urine Ketones Urine Blood Urine RBC (Auto) 11/11/19 11/11/19 11/11/19 05:25 05:25 05:45 WBC 6.7 RBC 3.99 L Hgb 10.7 L Hct 31.6 L MCV 79 L MCH 26.8 L MCHC 33.9 RDW 18.7 H Plt Count 478 H Seg Neutrophils % 50.2 Sodium Potassium Chloride Carbon Dioxide Anion Gap BUN Creatinine Est GFR ( Amer) Glucose Calcium Magnesium 2.2 Total Bilirubin AST Alkaline Phosphatase Total Protein Albumin Urine Color YELLOW Urine Appearance SLIGHTLY-CLOUDY Urine pH 6.0 Ur Specific [place] 1.024 Urine Protein NEGATIVE Urine Glucose (UA) NEGATIVE Urine Ketones NEGATIVE Urine Blood SMALL H Urine RBC (Auto) 5 11/10/19 22:42 Creatine Kinase 42 L Impressions: Hip X-Ray 11/10/19 16:18 IMPRESSION: The hardware in the proximal left femur is intact. There is no periprosthetic fracture or dislocation of the femoroacetabular joint. Pelvis MRI 11/10/19 17:21 IMPRESSION: 1. Bilateral sacral decubitus ulcers. There is a subcutaneous abscess in the right gluteal soft tissues extending to the right posterior inferior ischium. Abnormal bone marrow signal at the right ischium corresponds to sclerosis on previous CT and probably represents chronic osteomyelitis. There is abnormal bone marrow edema extending into the right posterior acetabulum, consistent with edema, possibly representing early osteomyelitis. 2. Left posterior gluteal phlegmon without focal drainable abscess extends to the left inferior ischium. Abnormal bone marrow signal in the left ischium consistent with left ischial osteomyelitis. 3. Left hip arthroplasty. There is no left hip joint effusion. Assessment and Plan - Diagnosis (1) Osteomyelitis, acute, pelvis or thigh Qualifiers: Laterality: unspecified laterality Qualified Code(s): M86.159 - Other acute osteomyelitis, unspecified femur Is this a current diagnosis for this admission?: Yes Plan: Patient with multiple sites of osteomyelitis in the pelvis. Some areas appear to be subacute but most areas appear to be acute. The patient will need a PICC line and 6 weeks of antibiotic therapy minimum. In addition osteomyelitis is a qualifying diagnosis for hyperbaric oxygen therapy. This would help with his wo und healing as well. Patient states that he was treated with long-term antibiotics for a MRSA infection years ago. Continue Zosyn and vancomycin for now. Cultures pending. (2) Stage III-IV decubitus ulcer left trocha Is this a current diagnosis for this admission?: Yes Plan: 11/11/2019 Will pack with saline gauze and change daily. The tissue itself appears quite healthy. It is possible that the patient may benefit from a VAC dressing but we have to be careful as I believe there is exposed ischial tuberosity at the base. (3) Stage III-IV decubitus ulcer right troch Is this a current diagnosis for this admission?: Yes Plan: 11/11/2019 Abscess at the right ischial tuberosity. The patient has had these abscesses for a long time. Wound care and antibiotic therapy for osteomyelitis as noted above. (4) Paraplegia Is this a current diagnosis for this admission?: Yes Plan: 11/11/2019 This is from an accident over 20 years ago. The patient uses bilateral crutches and bilateral AFOs. I do not believe he needs physical therapy at this time but I will assess daily. (5) Adverse reaction to drug in therapeutic use Is this a current diagnosis for this admission?: Yes Plan: 11/11/2019 The patient is infusing vancomycin in his left arm. He states that it is starting to get itchy. I did not appreciate a rash. We will utilize Benadryl. If this recurs we will consider changing to Zyvox. - Plan Summary Summary: I spent a lot of time talking to the provider on the phone and both in person after examining the patient I went and found the provider and discussed the care plan. Called MRI and they are willing to do a MRI of the sacrum. Patient does have hardware in his left MR however the pelvis is free of any hardware. Patient's decubitus are over the pelvic ring, not over the hips or acetabulum's. Also asked the patient the name of the home health and he has texted someone and they told him it was [facility]. Called discharge planning and they are going to call [facility] and get this set up for next week 3 or 4 times a week. Going to put the order in the system for this I am assuming the MRI scan is going to show no signs of osteomyelitis and if that is the case the provider in the ER will write for clindamycin 300 mg 3 times daily for 10 days. By some chance the MRI scan shows osteomyelitis then the patient will be admitted to the hospital for IV antibiotics. Patient is agreeable to this plan he to does not want to come into the hospital because of the risk of infection. 2 did not want to come to the emergency room because of the risk of infection. Patient agrees with the plan of going home if his MRI scan is negative on p.o. antibiotics. Once again I have discussed this with the provider in the emergency room. She h as no questions. Patient appears to be medically stable Addendum: Patient's MRI of the sacrum did show in fact osteomyelitis as well as a abscess. Patient's discharge to home was then changed to admission for IV antibiotics. - Time Time Spent with patient: 15-24 minutes Medications reviewed and adjusted accordingly: Yes
[2019-11-11] MEDS: GABAPENTIN 400 MG CAPSULE PO SCH ×2 (14:08→22:01)
[2019-11-11] MEDS: TEMAZEPAM 7.5 MG CAPSULE PO PRN (22:25)
[2019-11-11] MEDS ORDERED: PIPERACILLIN SODIUM/TAZOBACTAM 3.375 GM in NORMAL SALINE 100 ML IV SCH (23:00)
[2019-11-12] MEDS: OXYCODONE-ACETAMINOPHEN 5-325 MG TABLET PO PRN ×4 (02:00→22:28)
[2019-11-12 04:37] LABS: ABSOLUTE BASOPHILS # (AUTO) 0.1 10^3/uL (0.0-0.2); ABSOLUTE EOSINOPHILS # (AUTO) 0.4 10^3/uL (0.0-0.6); ABSOLUTE LYMPHOCYTES (AUTO) 2.2 10^3/uL (0.5-4.7); ABSOLUTE MONOCYTES (AUTO) 0.9 10^3/uL (0.1-1.4); ABSOLUTE NEUT (AUTO) 5.8 10^3/uL (1.7-8.2); BASOPHILS % (AUTO) 0.6 % (0-2); EOSINOPHILS % (AUTO) 3.8 % (0-6); HEMATOCRIT 33.5 % (37.9-51.0); LYMPHOCYTES % (AUTO) 23.7 % (13-45); MEAN CORPUSCULAR HEMOGLOBIN 26.9 pg (27.0-33.4); MEAN CORPUSCULAR HGB CONC 32.9 g/dL (32.0-36.0); MEAN CORPUSCULAR VOLUME 82 fl (80-97); MONOCYTES % (AUTO) 9.5 % (3-13); PLATELET COUNT 482 10^3/uL (150-450); RED CELL DISTRIBUTION WIDTH 18.8 % (11.5-14.0); SEGMENTED NEUTROPHILS % (AUTO) 62.4 % (42-78); TOTAL CELLS COUNTED % (AUTO) 100 %; WHITE BLOOD COUNT 9.2 10^3/uL (4.0-10.5)
[2019-11-12 04:54] LABS: ANION GAP 5 (5-19); BLOOD UREA NITROGEN 11 mg/dL (7-20); CALCIUM 8.6 mg/dL (8.4-10.2); CARBON DIOXIDE 26 mmol/L (22-30); CHLORIDE 108 mmol/L (98-107); GLUCOSE 119 mg/dL (75-110); POTASSIUM 4.2 mmol/L (3.6-5.0)
[2019-11-12 05:01] LABS: PREALBUMIN 12.4 mg/dL (17.6-36.0)
[2019-11-12 05:23] LABS: ERYTHROCYTE SEDIMENTATION RATE 77 mm/hr (0-15)
[2019-11-12] MEDS: GABAPENTIN 400 MG CAPSULE PO SCH ×3 (05:56→22:28)
[2019-11-12] MEDS: PIPERACILLIN SODIUM/TAZOBACTAM 3.375 GM in NORMAL SALINE 100 ML IV SCH ×3 (05:56→19:17)
[2019-11-12] MEDS: DOCUSATE SODIUM 100 MG CAPSULE PO SCH (09:39)
[2019-11-12] MEDS: ENOXAPARIN SODIUM INJ 40 MG/0.4 ML DISP.SYRIN SUBCUT SCH (09:40)
[2019-11-12] MEDS: VANCOMYCIN HCL 1,500 MG in DEXTROSE 5%-WATER 250 ML IV SCH ×2 (10:12→22:28)
[2019-11-12 10:42] LABS: VANCOMYCIN,TROUGH 12.4 ug/mL (5.0-20.0)
--- NOTE | 2019-11-12 11:25 | PDOC PROGRESS REPORT ---
Subjective Progress Note for:: 11/12/19 Subjective:: He is sitting up in bed. Still with some discomfort on the ischio ulcers. Anxious about getting home. He has been on home IV antibiotics in the past and is comfortable proceeding with this plan. Reason For Visit: OSTEOMYELITIS OF THE SACRUM, SACRAL DECUBITUS, Physical Exam Vital Signs: Temp Pulse Resp BP Pulse Ox 98.1 F 69 16 116/79 100 11/12/19 07:53 11/12/19 07:53 11/12/19 07:53 11/12/19 07:53 11/12/19 07:53 Intake & Output 11/11/19 11/12/19 11/13/19 06:59 06:59 06:59 Intake Total 250 1000 Output Total 1275 Balance 250 -275 Weight 57.2 kg 57.1 kg General appearance: PRESENT: no acute distress, cooperative, thin, well- developed Head exam: PRESENT: atraumatic, normocephalic Eye exam: PRESENT: conjunctiva pink, EOMI. ABSENT: scleral icterus Ear exam: PRESENT: normal external ear exam, other - Piercings present. ABSENT: bleeding, drainage Mouth exam: PRESENT: moist, neck supple, tongue midline Respiratory exam: PRESENT: clear to auscultation cee, symmetrical, unlabored. ABSENT: accessory muscle use, prolonged expiratory phas, rales, rhonchi, tachypnea, wheezes Cardiovascular exam: PRESENT: RRR, +S1, +S2, systolic murmur - 3/6 GI/Abdominal exam: PRESENT: normal bowel sounds, soft. ABSENT: distended, gu arding, mass, tenderness Rectal exam: PRESENT: deferred Gentrourinary exam: ABSENT: indwelling catheter Extremities exam: ABSENT: pedal edema Musculoskeletal exam: ABSENT: full ROM Neurological exam: PRESENT: alert, awake, oriented to person, oriented to place, oriented to time, oriented to situation, CN II-XII grossly intact. ABSENT: altered, motor sensory deficit Psychiatric exam: PRESENT: appropriate affect. ABSENT: agitated, anxious Focused psych exam: ABSENT: delusional, paranoid, restlessness Skin exam: PRESENT: dry, normal color, warm, other. ABSENT: rash Results Laboratory Results: 11/12/19 04:02 11/12/19 04:02 11/12/19 11/12/19 04:02 04:02 WBC 9.2 RBC 4.10 L Hgb 11.0 L Hct 33.5 L MCV 82 MCH 26.9 L MCHC 32.9 RDW 18.8 H Plt Count 482 H Seg Neutrophils % 62.4 Sodium 138.7 Potassium 4.2 Chloride 108 H Carbon Dioxide 26 Anion Gap 5 BUN 11 Creatinine 0.62 Est GFR ( Amer) > 60 Glucose 119 H Calcium 8.6 Magnesium 2.2 Prealbumin 12.4 L 11/10/19 22:42 Creatine Kinase 42 L Impressions: Hip X-Ray 11/10/19 16:18 IMPRESSION: The hardware in the proximal left femur is intact. There is no periprosthetic fracture or dislocation of the femoroacetabular joint. Pelvis MRI 11/10/19 17:21 IMPRESSION: 1. Bilateral sacral decubitus ulcers. There is a subcutaneous abscess in the right gluteal soft tissues extending to the right posterior inferior ischium. Abnormal bone marrow signal at the right ischium corresponds to sclerosis on previous CT and probably represents chronic osteomyelitis. There is abnormal bone marrow edema extending into the right posterior acetabulum, consistent with edema, possibly representing early osteomyelitis. 2. Left posterior gluteal phlegmon without focal drainable abscess extends to the left inferior ischium. Abnormal bone marrow signal in the left ischium consistent with left ischial osteomyelitis. 3. Left hip arthroplasty. There is no left hip joint effusion. Assessment and Plan - Diagnosis (1) Osteomyelitis, acute, pelvis or thigh Qualifiers: Laterality: unspecified laterality Qualified Code(s): M86.159 - Other acute osteomyelitis, unspecified femur Is this a current diagnosis for this admission?: Yes Plan: 11/11/2019 Patient with multiple sites of osteomyelitis in the pelvis. Some areas appear to be subacute but most areas appear to be acute. The patient will need a PICC line and 6 weeks of antibiotic therapy minimum. In addition osteomyelitis is a qualifying diagnosis for hyperbaric oxygen therapy. This would help with his wound healing as well. Patient states that he was treated with long-term antibiotics for a MRSA infection years ago. Continue Zosyn and vancomycin for now. Cultures pending. 11/12/2019 The wound culture is growing group B beta-hemolytic strep only. There is a blood culture bottle with gram-negative bacillus but it is only 1 bottle. The strep may be the causative agent for the osteomyelitis. The patient has had MRSA in the past but this was in 2018. There is no evidence of staph in this wound. The patient had a staph infection with methicillin sensitive staph aureus earlier this year. We can D/C contact precautions. Once I get the final result of the cultures then we can adjust his antibiotics. He does have hardware in the left hip. This may need to be removed if there is any concern that the infection is near the hardware. I will defer at this time. He also may need skin flaps. For this reason I have discussed referring to [facility] for the complexity of his wounds and comorbidities. (2) Stage III-IV decubitus ulcer left trocha Is this a current diagnosis for this admission?: Yes Plan: 11/11/2019 Will pack with saline gauze and change daily. The tissue itself appears quite healthy. It is possible that the patient may benefit from a VAC dressing but we have to be careful as I believe there is exposed ischial tuberosity at the base. 11/12/2019 See plan above. Continue saline dressings. The patient might benefit from an alginate dressing. I will discuss with the wound care center tomorrow. Eventually I feel he will benefit from VAC therapy and hyperbaric oxygen therapy. (3) Stage III-IV decubitus ulcer right troch Is this a current diagnosis for this admission?: Yes Plan: 11/11/2019 Abscess at the right ischial tuberosity. The patient has had these abscesses for a long time. Wound care and antibiotic therapy for osteomyelitis as noted above. 11/12/2019 Same plan as above (4) Paraplegia Is this a current diagnosis for this admission?: Yes Plan: 11/11/2019 This is from an accident over 20 years ago. The patient uses bilateral crutches and bilateral AFOs. I do not believe he needs physical therapy at this time but I will assess daily. 11/12/2019 The patient does currently live alone. Considering his current clinical issues I am not sure if home health alone would be adequate. I am going to put some referrals out for [facility]. (5) Protein-calorie malnutrition, mild Is this a current diagnosis for this admission?: Yes Plan: 11/12/2019 I believe the patient has at least mild protein calorie malnutrition. His BMI is only 18.6. He reports that his appetite has been poor. His caloric needs are significant given his infection and ulcers. His prealbumin was also very low. Multiple factors would contribute to this including his chronic wounds, infections and probable longstanding inflammatory processes. I have asked the dietitian to consult for recommendations on a wound healing diet (6) Adverse reaction to drug in therapeutic use Is this a current diagnosis for this admission?: Yes Plan: 11/11/2019 The patient is infusing vancomycin in his left arm. He states that it is starting to get itchy. I did not appreciate a rash. We will utilize Benadryl. If this recurs we will consider changing to Zyvox. 11/12/2019 There was mild itching and irritation at the IV site when the patient was receiving vancomycin yesterday. No rash developed. There is no sequela I. I do not believe it was specifically an adverse reaction to vancomycin. - Plan Summary Summary: I spent a lot of time talking to the provider on the phone and both in person after examining the patient I went and found the provider and discussed the care plan. Called MRI and they are willing to do a MRI of the sacrum. Patient does have hardware in his left MR however the pelvis is free of any hardware. Patient's decubitus are over the pelvic ring, not over the hips or acetabulum's. Also asked the patient the name of the home health and he has texted someone and [facility] Called discharge planning and they are going to call [facility] and get this set up for next week 3 or 4 times a week. Going to put the order in the system for this I am assuming the MRI scan is going to show no signs of osteomyelitis and if that is the case the provider in the ER will write for clindamycin 300 mg 3 times daily for 10 days. By some chance the MRI scan shows osteomyelitis then the patient will be admitted to the hospital for IV antibiotics. Patient is agreeable to this plan he to does not want to come into the hospital because of the risk of infection. 2 did not want to come to the emergency room because of the risk of infection. Patient agrees with the plan of going home if his MRI scan is negative on p.o. antibiotics. Once again I have discussed this with the provider in the emergency room. She has no questions. Patient appears to be medically stable Addendum: Patient's MRI of the sacrum did show in fact osteomyelitis as well as a abscess. Patient's discharge to home was then changed to admission for IV antibiotics. 11/12/2019 Due to the complexity of the patient situation and the fact that he will likely need skin grafting and dual VAC dressings as well as long-term IV antibiotics it is appropriate that we refer him to an LTACH. - Time Time Spent with patient: 15-24 minutes Medications reviewed and adjusted accordingly: Yes
[2019-11-12] MEDS: ASCORBIC ACID 500 MG TABLET PO SCH (18:07)
[2019-11-12] MEDS: TEMAZEPAM 7.5 MG CAPSULE PO PRN (22:28)
[2019-11-13] MEDS: PIPERACILLIN SODIUM/TAZOBACTAM 3.375 GM in NORMAL SALINE 100 ML IV SCH ×4 (00:33→17:11)
[2019-11-13] MEDS: OXYCODONE-ACETAMINOPHEN 5-325 MG TABLET PO PRN ×4 (04:54→20:00)
[2019-11-13] MEDS: GABAPENTIN 400 MG CAPSULE PO SCH ×3 (05:00→22:31)
[2019-11-13] MEDS: MULTIVITAMINS W-IRON TABLET, CHEWABLE PO SCH (10:13)
[2019-11-13] MEDS: ZINC SULFATE 220 MG CAPSULE PO SCH (10:13)
[2019-11-13] MEDS: ENOXAPARIN SODIUM INJ 40 MG/0.4 ML DISP.SYRIN SUBCUT SCH (10:13)
[2019-11-13] MEDS: VANCOMYCIN HCL 1,500 MG in DEXTROSE 5%-WATER 250 ML IV SCH (10:13)
[2019-11-13] MEDS: VITAMIN B COMPLEX TABLET PO SCH (10:13)
[2019-11-13] MEDS: DOCUSATE SODIUM 100 MG CAPSULE PO SCH (10:13)
[2019-11-13] MEDS: ASCORBIC ACID 500 MG TABLET PO SCH ×2 (10:13→17:15)
[2019-11-13] MEDS ORDERED: NORMAL SALINE 10 ML SDV (AFTER EACH USE) IV PRN (11:00)
[2019-11-13] MEDS: OXYCODONE HCL IR 5 MG TABLET PO PRN ×3 (11:06→20:01)
--- NOTE | 2019-11-13 11:19 | RADIOLOGY REPORT (SQ) ---
EXAM DESCRIPTION: PICC INSERTION IMAGES COMPLETED DATE/TIME: 11/13/2019 10:34 am REASON FOR STUDY: Osteomyelitis COMPARISON: None. FLUOROSCOPY TIME: 30 seconds 2 images saved to PACS. TECHNIQUE: Fluoroscopic and ultrasound guided PICC placement. LIMITATIONS: None. PROCEDURE: After written consent and assessment were obtained, the patient was brought into the [facility] roscopy room and placed supine on the table. Ultrasound evaluation of potential access sites were per formed. After successfully identifying a patent left basilic vein, the left arm was prepped and drape d in a sterile fashion along with the ultrasound probe. The entry site was anesthetized with 1% lidoc chris. A 21 gauge 7 cm needle was advanced through the skin and into the basilic vein under live ultra sound guidance. An ultrasound image was saved to PACS confirming access site. A .018 guide wire was then inserted through the needle and into the venous system. The needle was then removed and an 11 b lade scalpel was used to make a 1cm skin incision. A 5 fr peel-away sheath was advanced over the wir e and into the venous system. A measurement was then made using the existing wire and live fluoroscop ic guidance. The wire was then removed and trimmed. The PICC was advanced through the peel-away sheat h and into the venous system. The peel-away sheath was removed and the catheter was adhered to the pa tients arm with a stat lock. The catheter was then aspirated and flushed and a sterile bandage was pl aced over the access site. A fluoroscopic spot image was saved to PACS confirming the catheter tip w ithin the superior vena cava. IMPRESSION: SUCCESSFUL PLACEMENT OF A 5 FR DUAL LUMEN 43 CM PICC IN THE LEFT BASILIC VEIN. COMMENT: Patient medication list reviewed: Yes- Quality ID# 130:Eligible professional attests to doc umenting in the medical record they obtained, updated, or reviewed the patient's current medications. . Quality ID 145: Final reports for procedures using fluoroscopy that document radiation exposure mayte marisela, or exposure time and number of fluorographic images (if radiation exposure indices are not avail able) Quality ID #76: The patient was prepped and draped using maximum sterile barrier technique including cap, mask, sterile gown, sterile gloves, a large sterile sheet, hand hygiene, and 2% Chlorhexidine fo r cutaneous antisepsis. When ultrasound is used, sterile ultrasound techniques are followed requiring sterile gel and sterile probes. TECHNICAL DOCUMENTATION: JOB ID: [id number] 2010 [employer]- All Rights Reserved rev Reading location - IP/workstation name: [email or web address]
--- NOTE | 2019-11-13 11:39 | PDOC PROGRESS REPORT ---
Subjective Progress Note for:: 11/13/19 Subjective:: I wish the patient a happy birthday. He left as he is stuck in the hospital. He has no new complaints except limited relief from his pain medication. He did have more questions about transfer to a long-term acute care hospital. Reason For Visit: OSTEOMYELITIS OF THE SACRUM, SACRAL DECUBITUS, Physical Exam Vital Signs: Temp Pulse Resp BP Pulse Ox 97.6 F 64 16 103/59 L 98 11/13/19 07:00 11/13/19 07:00 11/13/19 07:00 11/13/19 07:00 11/13/19 07:00 Intake & Output 11/12/19 11/13/19 11/14/19 06:59 06:59 06:59 Intake Total 1000 3700 120 Output Total 1275 1450 Balance -275 2250 120 Weight 57.1 kg 63 kg General appearance: PRESENT: no acute distress, cooperative, well-developed, well-nourished Head exam: PRESENT: atraumatic, normocephalic Eye exam: PRESENT: conjunctiva pink. ABSENT: scleral icterus Ear exam: PRESENT: normal external ear exam, other - Piercings. ABSENT: bleeding, drainage Mouth exam: PRESENT: moist, tongue midline Neck exam: PRESENT: full ROM. ABSENT: JVD, lymphadenopathy, tenderness, thyromegaly Respiratory exam: PRESENT: clear to auscultation cee, symmetrical, unlabored. ABSENT: accessory muscle use, prolonged expiratory phas, rales, rhonchi, tachypnea, wheezes Cardiovascular exam: PRESENT: RRR, +S1, +S2, systolic murmur - 2/6 GI/Abdominal exam: PRESENT: normal bowel sounds, soft. ABSENT: distended, guarding, tenderness Rectal exam: PRESENT: deferred Gentrourinary exam: ABSENT: indwelling catheter - Patient performs self straight catheterization Extremities exam: ABSENT: pedal edema Musculoskeletal exam: PRESENT: ambulatory - Ambulates with AFOs and crutches Neurological exam: PRESENT: alert, awake, oriented to person, oriented to place, oriented to time, oriented to situation, CN II-XII grossly intact. ABSENT: altered Psychiatric exam: PRESENT: appropriate affect, normal mood. ABSENT: agitated, anxious Focused psych exam: ABSENT: delusional, paranoid, restlessness Skin exam: PRESENT: dry, normal color, warm, other - Dressings over bilateral ischial ulcers Results Laboratory Results: 11/12/19 04:02 11/12/19 04:02 11/10/19 22:48 Blood Blood Culture (PCR) - Final 11/10/19 22:42 Creatine Kinase 42 L Impressions: Hip X-Ray 11/10/19 16:18 IMPRESSION: The hardware in the proximal left femur is intact. There is no periprosthetic fracture or dislocation of the femoroacetabular joint. Pelvis MRI 11/10/19 17:21 IMPRESSION: 1. Bilateral sacral decubitus ulcers. There is a subcutaneous abscess in the right gluteal soft tissues extending to the right posterior inferior ischium. Abnormal bone marrow signal at the right ischium corresponds to sclerosis on previous CT and probably represents chronic osteomyelitis. There is abnormal b one marrow edema extending into the right posterior acetabulum, consistent with edema, possibly representing early osteomyelitis. 2. Left posterior gluteal phlegmon without focal drainable abscess extends to the left inferior ischium. Abnormal bone marrow signal in the left ischium consistent with left ischial osteomyelitis. 3. Left hip arthroplasty. There is no left hip joint effusion. PICC Line Insertion 11/13/19 00:00 IMPRESSION: SUCCESSFUL PLACEMENT OF A 5 FR DUAL LUMEN 43 CM PICC IN THE LEFT BASILIC VEIN. Assessment and Plan - Diagnosis (1) Osteomyelitis, acute, pelvis or thigh Qualifiers: Laterality: unspecified laterality Qualified Code(s): M86.159 - Other acute osteomyelitis, unspecified femur Is this a current diagnosis for this admission?: Yes Plan: 11/11/2019 Patient with multiple sites of osteomyelitis in the pelvis. Some areas appear to be subacute but most areas appear to be acute. The patient will need a PICC line and 6 weeks of antibiotic therapy minimum. In addition osteomyelitis is a qualifying diagnosis for hyperbaric oxygen therapy. This would help with his wound healing as well. Patient states that he was treated with long-term antibiotics for a MRSA infection years ago. Continue Zosyn and vancomycin for now. Cultures pending. 11/12/2019 The wound culture is growing group B beta-hemolytic strep only. There is a blood culture bottle with gram-negative bacillus but it is only 1 bottle. The strep may be the causative agent for the osteomyelitis. The patient has had MRSA in the past but this was in 2018. There is no evidence of staph in this w ound. The patient had a staph infection with methicillin sensitive staph aureus earlier this year. We can D/C contact precautions. Once I get the final result of the cultures then we can adjust his antibiotics. He does have hardware in the left hip. This may need to be removed if there is any concern that the infection is near the hardware. I will defer at this time. He also may need skin flaps. For this reason I have discussed referring to [facility] for the complexity of his wounds and comorbidities. 11/13/2019 Group B strep isolated. Literature search revealed that ceftriaxone 2 g daily for 6 weeks would be effective and as a once daily dosing it would help with administration for patients. Hopefully the patient will be accepted at a long- term [facility] for more definitive treatment. (2) Stage III-IV decubitus ulcer left trocha Is this a current diagnosis for this admission?: Yes Plan: 11/11/2019 Will pack with saline gauze and change daily. The tissue itself appears quite healthy. It is possible that the patient may benefit from a VAC dressing but we have to be careful as I believe there is exposed ischial tuberosity at the base. 11/12/2019 See plan above. Continue saline dressings. The patient might benefit from an alginate dressing. I will discuss with the wound care center tomorrow. Eventually I feel he will benefit from VAC therapy and hyperbaric oxygen thera py. (3) Stage III-IV decubitus ulcer right troch Is this a current diagnosis for this admission?: Yes Plan: 11/11/2019 Abscess at the right ischial tuberosity. The patient has had these abscesses for a long time. Wound care and antibiotic therapy for osteomyelitis as noted above. 11/12/2019 Same plan as above (4) Paraplegia Is this a current diagnosis for this admission?: Yes Plan: 11/11/2019 This is from an accident over 20 years ago. The patient uses bilateral crutches and bilateral AFOs. I do not believe he needs physical therapy at this time but I will assess daily. 11/12/2019 The patient does currently live alone. Considering his current clinical issues I am not sure if home health alone would be adequate. I am going to put some referrals out for [facility]. (5) Protein-calorie malnutrition, mild Is this a current diagnosis for this admission?: Yes Plan: 11/12/2019 I believe the patient has at least mild protein calorie malnutrition. His BMI is only 18.6. He reports that his appetite has been poor. His caloric needs are significant given his infection and ulcers. His prealbumin was also very low. Multiple factors would contribute to this including his chronic wounds, infections and probable longstanding inflammatory processes. I have asked the dietitian to consult for recommendations on a wound healing diet 11/13/2019 I reviewed the dietitian's note. I have added the vitamins. He will continue to be followed by the dietitian at the [facility]. (6) Adverse reaction to drug in therapeutic use Is this a current diagnosis for this admission?: Yes Plan: 11/11/2019 The patient is infusing vancomycin in his left arm. He states that it is starting to get itchy. I did not appreciate a rash. We will utilize Benadryl. If this recurs we will consider changing to Zyvox. 11/12/2019 There was mild itching and irritation at the IV site when the patient was receiving vancomycin yesterday. No rash developed. There is no sequela I. I do not believe it was specifically an adverse reaction to vancomycin. - Plan Summary Summary: I spent a lot of time talking to the provider on the phone and both in person after examining the patient I went and found the provider and discussed the care plan. Called MRI and they are willing to do a MRI of the sacrum. Patient does have hardware in his left MR however the pelvis is free of any hardware. Patient's decubitus are over the pelvic ring, not over the hips or acetabulum's. Also asked the patient the name of the home health and he has texted someone and they told him it was [facility]. Called discharge planning and they are going to call [facility] and get this set up for next week 3 or 4 times a week. Going to put the order in the system for this I am assuming the MRI scan is going to show no signs of osteomyelitis and if that is the case the provider in the ER will write for clindamycin 300 mg 3 times daily for 10 days. By some chance the MRI scan shows osteomyelitis then the patient will be admitted to the hospital for IV antibiotics. Patient is agreeable to this plan he to does not want to come into the hospital because of the risk of infection. 2 did not want to come to the emergency room because of the risk of infection. Patient agrees with the plan of going home if his MRI scan is negative on p.o. antibiotics. Once again I have discussed this with the provider in the emergency room. She has no questions. Patient appears to be medically stable Addendum: Patient's MRI of the sacrum did show in fact osteomyelitis as well as a abscess. Patient's discharge to home was then changed to admission for IV antibiotics. 11/12/2019 Due to the complexity of the patient situation and the fact that he will likely need skin grafting and dual VAC dressings as well as long-term IV antibiotics it is appropriate that we refer him to an LTACH. - Time Time Spent with patient: 15-24 minutes Medications reviewed and adjusted accordingly: Yes Anticipated discharge: Other - Long-term acute care hospital
[2019-11-13] MEDS ORDERED: PHENYLEPHRINE HCL 1 EACH SUPP.RECT PR PRN (17:58)
[2019-11-13] MEDS ORDERED: SIMETHICONE 80 MG TAB.CHEW PO PRN (18:02)
--- NOTE | 2019-11-13 18:03 | Progress Note ---
Provider Note Provider Note: 11/13/2019 18:00 I was called to the bedside by the patient's nurse. She was extremely worried. The patient's rectum had prolapsed and was bleeding. They had applied gauze and gentle pressure and were able to achieve hemostasis. When I arrived the rectal tissue was in fact prolapsed. There was no active bleeding. There is a small amount of stool. The patient revealed that this is happened in the past. Sometimes with soft stool he will experience a prolapse. It usually reduces easily. I was able to reduce the prolapse. We reviewed the tissue laxity and propensity for prolapse for the patient. We will administer Anusol suppositories in an effort to reduce tissue inflammation, decrease friability and hence stop bleeding. Total visit time 20 minutes
[2019-11-13] MEDS ORDERED: PHENYLEPHRINE HCL 1 EACH SUPP.RECT PR ONE (19:00)
[2019-11-13] MEDS: FAMOTIDINE 20 MG TABLET PO SCH (22:31)
[2019-11-13] MEDS: NORMAL SALINE 10 ML SDV (SCHEDULED) IV SCH (22:32)
[2019-11-14] MEDS: OXYCODONE HCL IR 5 MG TABLET PO PRN ×6 (00:02→21:55)
[2019-11-14] MEDS: OXYCODONE-ACETAMINOPHEN 5-325 MG TABLET PO PRN ×6 (00:02→21:55)
[2019-11-14] MEDS: GABAPENTIN 400 MG CAPSULE PO SCH ×3 (06:06→21:08)
[2019-11-14] MEDS: FAMOTIDINE 20 MG TABLET PO SCH ×2 (09:08→21:08)
[2019-11-14] MEDS: MULTIVITAMINS W-IRON TABLET, CHEWABLE PO SCH (09:08)
[2019-11-14] MEDS: LACTOBACILLUS ACIDOPHILUS 250 MG TAB PO SCH ×2 (09:08→17:40)
[2019-11-14] MEDS: VITAMIN B COMPLEX TABLET PO SCH (09:08)
[2019-11-14] MEDS: DOCUSATE SODIUM 100 MG CAPSULE PO SCH ×2 (09:08→09:34)
[2019-11-14] MEDS: ZINC SULFATE 220 MG CAPSULE PO SCH (09:08)
[2019-11-14] MEDS: ASCORBIC ACID 500 MG TABLET PO SCH ×2 (09:08→17:40)
[2019-11-14] MEDS: NORMAL SALINE 10 ML SDV (SCHEDULED) IV SCH ×2 (09:10→21:09)
[2019-11-14] MEDS: ENOXAPARIN SODIUM INJ 40 MG/0.4 ML DISP.SYRIN SUBCUT SCH (09:11)
[2019-11-14] MEDS ORDERED: CEFTRIAXONE 2 GM/D5W RTU 2 GM/50 ML RTUPB IV SCH (10:00)
[2019-11-14] MEDS: NICOTINE 7 MG/24 HR PATCH.TD24 TD SCH (13:54)
--- NOTE | 2019-11-14 14:49 | Progress Note ---
Provider Note Provider Note: [facility] Telephone Advice Consultation Chart reviewed. Patient is a 39-year-old man with paraplegia and multiple de cubitus ulcers, infected with MRSA, MSSA in the past. He usually has wound care, but this has not happened for the past month. He was admitted due to worsening drainage from some of the ulcers in the sacral area. He denied any fever or systemic symptoms. He was started on vanocmycin and zosyn awaiting for MRI of the pelvis. He had left hip arthoplasty done in the past. MRI demonstrated osteomyelitis of the right ischium, early osteomyelitis of the posterior part of the right acetabulum, left ischial osteomyelitis and a phlegmon in the left posterior gluteus. His blood cultures grew Acinetobacter 1/4. Wound culture with Streptococcus agalactiae (GBS). Antibiotic therapy was transitioned to ceftriaxone. ID consulted for recommendations. Allergies No Known Allergies Allergy (Verified 08/22/19 07:43) Current Home Medications Buprenorphine HCl/Naloxone HCl [Suboxone 8 mg-2 mg Sl Film] 1 film SL Q8 11/11/19 [History] Gabapentin [Neurontin] 800 mg PO Q8 11/11/19 [History] Vital signs: Temp Pulse Resp BP Pulse Ox 97.8 F 76 16 112/64 97 11/14/19 10:57 11/14/19 10:57 11/14/19 10:57 11/14/19 10:57 11/14/19 10:57 Intake & Output 11/13/19 11/14/19 11/15/19 06:59 06:59 06:59 Intake Total 3700 1570 687 Output Total 1450 2675 100 Balance 2250 -1105 587 Weight 63 kg 68.1 kg Weight/Height Weight 68.1 kg Height 5 ft 9 in Laboratories: 11/12/19 04:02 11/12/19 04:02 MCV 82 fl (80-97) 11/12/19 04:02 MCH 26.9 pg (27.0-33.4) L 11/12/19 04:02 MCHC 32.9 g/dL (32.0-36.0) 11/12/19 04:02 RDW 18.8 % (11.5-14.0) H 11/12/19 04:02 Seg Neutrophils % 62.4 % (42-78) 11/12/19 04:02 Chloride 108 mmol/L (98-107) H 11/12/19 04:02 Carbon Dioxide 26 mmol/L (22-30) 11/12/19 04:02 Anion Gap 5 (5-19) 11/12/19 04:02 Est GFR ( Amer) > 60 (>60) 11/12/19 04:02 Glucose 119 mg/dL (75-110) H 11/12/19 04:02 Calcium 8.6 mg/dL (8.4-10.2) 11/12/19 04:02 Magnesium 2.2 mg/dL (1.6-2.3) 11/12/19 04:02 Total Bilirubin 0.3 mg/dL (0.2-1.3) 11/10/19 15:55 AST 18 U/L (17-59) 11/10/19 15:55 Alkaline Phosphatase 81 U/L (38-126) 11/10/19 15:55 Total Protein 7.7 g/dL (6.3-8.2) 11/10/19 15:55 Albumin 3.4 g/dL (3.5-5.0) L 11/10/19 15:55 Prealbumin 12.4 mg/dL (17.6-36.0) L 11/12/19 04:02 Urine Color YELLOW 11/11/19 05:45 Urine Appearance SLIGHTLY-CLOUDY 11/11/19 05:45 Urine pH 6.0 (5.0-9.0) 11/11/19 05:45 Ur Specific [place] 1.024 11/11/19 05:45 Urine Protein NEGATIVE mg/dL (NEGATIVE) 11/11/19 05:45 Urine Glucose (UA) NEGATIVE mg/dL (NEGATIVE) 11/11/19 05:45 Urine Ketones NEGATIVE mg/dL (NEGATIVE) 11/11/19 05:45 Urine Blood SMALL (NEGATIVE) H 11/11/19 05:45 Urine RBC (Auto) 5 /HPF 11/11/19 05:45 11/11/19 04:20 Buttocks - Decubitis Ulcer Gram Stain - Final 11/11/19 04:20 Buttocks - Decubitis Ulcer Wound Culture - Final Group B Beta Streptococcus Skin Yani 11/10/19 22:48 Blood Blood Culture (PCR) - Final 04/17/20 22:48 Blood Blood Culture - Final Acinetobacter Species 11/10/19 22:42 Creatine Kinase 42 L Radiology: Hip X-Ray 11/10/19 16:18 IMPRESSION: The hardware in the proximal left femur is intact. There is no periprosthetic fracture or dislocation of the femoroacetabular joint. Pelvis MRI 11/10/19 17:21 IMPRESSION: 1. Bilateral sacral decubitus ulcers. There is a subcutaneous abscess in the right gluteal soft tissues extending to the right posterior inferior ischium. Abnormal bone marrow signal at the right ischium corresponds to sclerosis on previous CT and probably represents chronic osteomyelitis. There is abnormal bone marrow edema extending into the right posterior acetabulum, consistent with edema, possibly representing early osteomyelitis. 2. Left posterior gluteal phlegmon without focal drainable abscess extends to the left inferior ischium. Abnormal bone marrow signal in the left ischium consistent with left ischial osteomyelitis. 3. Left hip arthroplasty. There is no left hip joint effusion. Assessment and Recommendations: Case consulted for extensive pelvic osteomyelitis in the setting of paraplegia, chronic ulcers and left hip arthroplasty. Patient is afebrile, HD stable, no leukocytosis. Blood culture with Acinetobacter, which can be a contaminant, but in the setting of pelvic osteomyelitis and active ulcers, will consider it a true pathogen as he can have a deeper infection with this bacteria. Ideally would request a bone biopsy off antibiotics for cultures, but in view of exposure to antibiotics and current bacteremia, will recommend to treat empirically. Will cover Acinetobacter and GBS. Due to location would also cover anaerobes. Cefepime 2g every 8 hr and metronidazole 500 mg po every 12 hr. He will need 6 weeks of therapy. Please monitor CBC, CMP, ESR and CRP while on antibiotics. Remove PICC line at completion of therapy. EOT 12/19/19. Due to the presence of orthopedic hardware if there is recurrence of infection or spread to the left hip, he might need ortho evaluation for explantation of the prosthesis. Please call if questions. Marion Salomon MD [facility] [phone]
--- NOTE | 2019-11-14 17:09 | PDOC PROGRESS REPORT ---
Subjective Progress Note for:: 11/14/19 Subjective:: Patient is a 39-year-old patient with a past medical history of chronic paraplegia, hepatitis C, neurogenic bladder (self caths as needed), and chronic decubitus ulcers who was admitted 11/10/2019 with an abscess to his sacrum. Patient was seen on morning rounds with nursing. He was found resting in bed, comfortably, on room air. He reports adequately controlled pain on his current medication regiment, however, would be interested in transitioning to extended release options if available. Otherwise, he denies questions or concerns. He specifically denies fever, chills, chest pain, palpitations, dyspnea, cough, abdominal pain, nausea vomiting and diarrhea. He has had no further rectal prolapse occurrences. No concerns per nursing. Reason For Visit: OSTEOMYELITIS OF THE SACRUM, SACRAL DECUBITUS, Physical Exam Vital Signs: Temp Pulse Resp BP Pulse Ox 98.2 F 80 16 100/64 99 11/14/19 14:58 11/14/19 14:58 11/14/19 14:58 11/14/19 14:58 11/14/19 14:58 Intake & Output 11/13/19 11/14/19 11/15/19 06:59 06:59 06:59 Intake Total 3700 1570 687 Output Total 1450 2675 100 Balance 2250 -1105 587 Weight 63 kg 68.1 kg General appearance: PRESENT: no acute distress, cooperative, well-developed, well-nourished Head exam: PRESENT: atraumatic, normocephalic Eye exam: PRESENT: conjunctiva pink, EOMI, PERRLA. ABSENT: scleral icterus Mouth exam: PRESENT: moist, tongue midline Respiratory exam: PRESENT: clear to auscultation cee, symmetrical, unlabored. ABSENT: rales, rhonchi, wheezes Cardiovascular exam: PRESENT: RRR, +S1, +S2, systolic murmur. ABSENT: diastolic murmur, rubs Vascular exam: PRESENT: normal capillary refill GI/Abdominal exam: PRESENT: normal bowel sounds, soft. ABSENT: distended, guarding, mass, organolmegaly, rebound, tenderness Rectal exam: PRESENT: deferred Extremities exam: PRESENT: full ROM. ABSENT: calf tenderness, clubbing, pedal edema Musculoskeletal exam: PRESENT: ambulatory - Ambulates with AFOs and crutches Neurological exam: PRESENT: alert, awake, oriented to person, oriented to place, oriented to time, oriented to situation, CN II-XII grossly intact. ABSENT: motor sensory deficit Psychiatric exam: PRESENT: appropriate affect, normal mood. ABSENT: homicidal ideation, suicidal ideation Skin exam: PRESENT: dry, warm, other - bilateral stage III decubitus ulcers (POA); no drainage present, no surrounding erythema. ABSENT: cyanosis, intact, rash Results Laboratory Results: 11/12/19 04:02 11/12/19 04:02 11/11/19 04:20 Buttocks - Decubitis Ulcer Gram Stain - Final 11/11/19 04:20 Buttocks - Decubitis Ulcer Wound Culture - Final Group B Beta Streptococcus Skin Yani 11/10/19 22:48 Blood Blood Culture (PCR) - Final 11/10/19 22:48 Blood Blood Culture - Final Acinetobacter Species 11/10/19 22:42 Creatine Kinase 42 L Impressions: Hip X-Ray 11/10/19 16:18 IMPRESSION: The hardware in the proximal left femur is intact. There is no periprosthetic fracture or dislocation of the femoroacetabular joint. Pelvis MRI 11/10/19 17:21 IMPRESSION: 1. Bilateral sacral decubitus ulcers. There is a subcutaneous abscess in the right gluteal soft tissues extending to the right posterior inferior ischium. Abnormal bone marrow signal at the right ischium corresponds to sclerosis on previous CT and probably represents chronic osteomyelitis. There is abnormal bone marrow edema extending into the right posterior acetabulum, consistent with edema, possibly representing early osteomyelitis. 2. Left posterior gluteal phlegmon without focal drainable abscess extends to the left inferior ischium. Abnormal bone marrow signal in the left ischium consistent with left ischial osteomyelitis. 3. Left hip arthroplasty. There is no left hip joint effusion. PICC Line Insertion 11/13/19 00:00 IMPRESSION: SUCCESSFUL PLACEMENT OF A 5 FR DUAL LUMEN 43 CM PICC IN THE LEFT BASILIC VEIN. Assessment and Plan - Diagnosis (1) Osteomyelitis, acute, pelvis or thigh Qualifiers: Laterality: unspecified laterality Qualified Code(s): M86.159 - Other acute osteomyelitis, unspecified femur Is this a current diagnosis for this admission?: Yes Plan: MRI revealed right ischium chronic osteomyelitis and right posterior acetabulum early osteomyelitis. Left hip arthroplasty. Blood cultures are negative. Wound culture showed group B strep. Patient is admitted to the medical floor. Infectious disease was consulted; have adjusted antibiotics per their recommendations. Currently on cefepime and metronidazole. EOT 12/19/2019. Recommend weekly CBC, CMP, ESR, and CRP while on antibiotics with removal of PICC line upon completion of therapy. Should infection recur, may need orthopedic evaluation for explantation of left hip prosthesis. Discharge planning consulted for LTAC placement. (2) Stage III-IV decubitus ulcer left trocha Is this a current diagnosis for this admission?: Yes Plan: Blood cultures are negative to date. Acinetobacter noted in 1 bottle; likely c ontaminant. Wound culture shows group B strep. Continue wet-to-dry dressings. Infectious disease was consulted; have recommended transition to cefepime 2 g every 8 hours with metronidazole 500 mg p.o. every 12. Discharge planning consulted for transition to LTAC. (3) Stage III-IV decubitus ulcer right troch Is this a current diagnosis for this admission?: Yes Plan: Same plan as above (4) Protein-calorie malnutrition, mild Is this a current diagnosis for this admission?: Yes Plan: BMI 22.2. Continue multivitamin, vitamin C, vitamin B and zinc as recommended by registered dietitian. Regular diet. (5) Rectal prolapse Is this a current diagnosis for this admission?: Yes Plan: Previous history of the same. Continue Anusol suppositories. (6) Paraplegia Is this a current diagnosis for this admission?: Yes Plan: Currently lives independently. Agreeable to LTAC for wound care and completion of antibiotic therapy. Discharge planning consulted. (7) Adverse reaction to drug in therapeutic use Is this a current diagnosis for this admission?: Yes Plan: Resolved related to Vancomycin. - Time Time Spent with patient: 35 or more minutes Medications reviewed and adjusted accordingly: Yes Anticipated discharge: Other - LTAC Within: when bed available
[2019-11-14] MEDS: CEFEPIME HCL 2 GM in DEXTROSE 5%-WATER 50 ML IV SCH (21:07)
[2019-11-14] MEDS: METRONIDAZOLE 500 MG TABLET PO SCH (21:08)
[2019-11-14] MEDS ORDERED: OXYCODONE HCL SR 10 MG TABLET PO SCH (22:00)
[2019-11-14] MEDS ORDERED: CEFEPIME 2 GM/D5W RTU 2 GM/50 ML RTUPB IV SCH (22:00)
[2019-11-15] MEDS: OXYCODONE-ACETAMINOPHEN 5-325 MG TABLET PO PRN ×4 (02:00→19:48)
[2019-11-15] MEDS: OXYCODONE HCL IR 5 MG TABLET PO PRN ×4 (02:00→19:49)
[2019-11-15] MEDS: GABAPENTIN 400 MG CAPSULE PO SCH ×2 (05:39→14:43)
[2019-11-15] MEDS: CEFEPIME HCL 2 GM in DEXTROSE 5%-WATER 50 ML IV SCH ×2 (05:39→14:43)
[2019-11-15] MEDS ORDERED: OXYCODONE HCL SR 10 MG TABLET PO SCH (10:00)
[2019-11-15] MEDS: VITAMIN B COMPLEX TABLET PO SCH (10:10)
[2019-11-15] MEDS: MULTIVITAMINS W-IRON TABLET, CHEWABLE PO SCH (10:10)
[2019-11-15] MEDS: FAMOTIDINE 20 MG TABLET PO SCH (10:10)
[2019-11-15] MEDS: LACTOBACILLUS ACIDOPHILUS 250 MG TAB PO SCH ×2 (10:10→17:04)
[2019-11-15] MEDS: ASCORBIC ACID 500 MG TABLET PO SCH ×2 (10:10→17:05)
[2019-11-15] MEDS: NICOTINE 7 MG/24 HR PATCH.TD24 TD SCH (10:11)
[2019-11-15] MEDS: ENOXAPARIN SODIUM INJ 40 MG/0.4 ML DISP.SYRIN SUBCUT SCH (10:12)
[2019-11-15] MEDS: METRONIDAZOLE 500 MG TABLET PO SCH (10:12)
[2019-11-15] MEDS: NORMAL SALINE 10 ML SDV (SCHEDULED) IV SCH (10:12)
[2019-11-15] MEDS: ZINC SULFATE 220 MG CAPSULE PO SCH (10:12)
[2019-11-15] MEDS: DOCUSATE SODIUM 100 MG CAPSULE PO SCH (10:22)
[2019-11-15] MEDS ORDERED: MORPHINE SULFATE 10 MG/ML INJ IV PRN (15:46)
[2019-11-15 15:48] VITALS: BP 111/62
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
== END 2019-11-15 19:55 | DRG 539 ==
LOC: ER 14:14 → EH 21:01 → 4S 23:07
PROVIDERS: ADMIT Emergency Medicine; ATTEND Registered Nurse
PROC: 02HV33Z Insertion of Infusion Device into Superior Vena Cava, Percutaneous Approach (ICD-10-PCS; principal; 2019-11-13)
PROC: B5181ZA Fluoroscopy of Superior Vena Cava using Low Osmolar Contrast, Guidance (ICD-10-PCS; 2019-11-13)
PROC: B548ZZA Ultrasonography of Superior Vena Cava, Guidance (ICD-10-PCS; 2019-11-13)
DX: M46.28 Osteomyelitis of vertebra, sacral and sacrococcygeal region (principal); L89.213 Pressure ulcer of right hip, stage 3; L89.223 Pressure ulcer of left hip, stage 3; E44.1 Mild protein-calorie malnutrition; A18.01 Tuberculosis of spine; Z68.1 Body mass index [BMI] 19.9 or less, adult; M86.651 Other chronic osteomyelitis, right thigh; K62.3 Rectal prolapse; T36.8X5A Adverse effect of other systemic antibiotics, initial encounter; M86.159 Other acute osteomyelitis, unspecified femur; Y92.89 Other specified places as the place of occurrence of the external cause; B95.1 Streptococcus, group B, as the cause of diseases classified elsewhere; T14.8XXS Other injury of unspecified body region, sequela; X58.XXXS Exposure to other specified factors, sequela; F17.210 Nicotine dependence, cigarettes, uncomplicated; M21.372 Foot drop, left foot; M21.371 Foot drop, right foot; Z79.899 Other long term (current) drug therapy; Z86.14 Personal history of Methicillin resistant Staphylococcus aureus infection; Z60.2 Problems related to living alone
CPT/HCPCS: 36415; 36573; 72195; 73522; 80048; 80053; 80202; 81001; 82550; 83735; 84134; 85025; 85610; 85652; 85730; 87040; 87070; 87077; 87150; 87186; 87205; 96374; 99285; J0692; J0696; J1200; J1642; J1650; J2270; J2543; J3370; J3490; J7050; J7060